=== PATIENT | male | born 1940 | race Caucasian/White ===

== ENCOUNTER 2018-01-02 10:15 | Inpatient (IN) | payer MEDICARE, SELFPAY ==
[2018-01-02] VITALS (10 sets, daily range): BP systolic 145–174; BP diastolic 60–85; PULSE 59–94; RESP 15–29; TEMP 36.8–36.9; O2SAT 94–98; BMI 29.0; BMI 27.9; BMI 28.0
--- NOTE | 2018-01-02 10:30 | EKG12_ITS ---
Test Reason : SYNCOPE Blood Pressure : / mmHG Vent. Rate : 079 BPM Atrial Rate : 079 BPM P-R Int : 172 ms QRS Dur : 098 ms QT Int : 372 ms P-R-T Axes : 047 -10 048 degrees QTc Int : 426 ms Normal sinus rhythm Normal ECG Confirmed by HENRY BECERRA, JAYDON ([id number]), metropolitan editor RORY ISAACS ([id number]) on 01/04/2018 3:59:02 PM Referred By: MEL Confirmed By:JAYDON FIGUEROA MD
--- NOTE | 2018-01-02 10:30 | CT_ITS ---
STUDY: CT BRAIN WITHOUT CONTRAST REASON FOR EXAM: Male, 77 years old. Syncope 2 days ago. CVA x3 with memory loss. RADIATION DOSAGE (If Supplied By Facility): CTDIvol = ( 44.99 ) mGy, DLP = ( 779.24 ) mGycm TECHNIQUE: Transaxial CT imaging of the brain was performed without administration of intravenous contrast material. Coronal and sagittal reconstructions were performed. Individualized dose optimization techniques were used for this CT. COMPARISON: 07/10/2013. FINDINGS: Normal soft tissue structures. Normal calvarium. Lacunar cystic infarcts in the periventricular white matter and in the anterior body of the left caudate nucleus are unchanged. Normal ventricles and cisterns. Phil cisterna magna in the posterior fossa is unchanged. Chronic white matter ischemic changes in both cerebral hemispheres are unchanged. Normal remaining basal ganglia. Normal thalami. Normal brainstem. Normal cerebellum. There is no intracranial hemorrhage. There are no findings of an acute ischemic infarction. Normal visualized paranasal sinuses. CT/Brain/Head without Contrast IMPRESSION: 1. No CT evidence of intracranial bleeding, acute infarct or acute intracranial abnormality. 2. 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 3. Chronic white matter ischemic changes in both cerebral hemispheres. 4. Phil cisterna magna. 5. No interval changes when compared to 07/10/2013. Electronically Signed: Jesus Del Cid MD at 11:59 EDT , Service support ,
--- NOTE | 2018-01-02 10:30 | RAD_ITS ---
STUDY: X-RAY CHEST REASON FOR EXAM: Male, 77 years old. Cough with recent syncopal episode. TECHNIQUE: AP upright portable view. COMPARISON: 03/10/2016. FINDINGS: Marked pulmonary hypoinflation. No suspicious confluent infiltrates and no suspicious pulmonary nodules. There is no demonstrated pleural abnormality. Cardiomegaly is most likely unchanged. Normal mediastinum and sanaz. Normal visualized pulmonary arteries. Normal visualized aortic arch and descending thoracic aorta. Normal visualized thoracic spine. Normal visualized ribs, clavicles, and shoulders. There is no demonstrated abnormality of the visualized soft tissue structures of the upper abdomen. RAD/Chest 1 View (Portable) IMPRESSION: 1. No suspicious acute cardiopulmonary pathology given the markedly limited inspiratory effort. 2. No significant interval changes when compared to 03/10/2016. Electronically Signed: Jesus Del Cid MD at 11:10 EDT , Service support ,
--- NOTE | 2018-01-02 10:46 | ED.DCSUM_ITS ---
- ER Visit Summary Date of Service: 01/02/18 Chief Complaint: Syncope History of Present Illness: The patient is a 77 M with history of multiple prior strokes, coronary vascular disease status post CABG, and hypertension presents after syncopal event. Patient states he has been in his normal state of health. He was outdoors walking with his on Tuesday. He does walk with a walker. While walking, the patient had a sudden syncopal event. He fell onto the grass. He did not strike his head. It only lasted a few seconds. There is no seizure activity. Shortly thereafter, the patient was back to his baseline. states that this happened about a month ago he was eating. He was at the table and then passed out for a few seconds. He has no history of syncope. He denies any chest pain. He denies any exertional dyspnea. He is not on anticoagulants. Physical Examination: Vital signs reviewed General: Well-nourished, well-developed Head: Normocephalic, atraumatic Eyes: Pupils equal and reactive, extraocular muscles intact Neck, supple, no lymphadenopathy Heart: Regular rate and rhythm Respiratory: No distress, clear bilaterally Abdomen: Soft, nontender, nondistended, no peritoneal signs Back: Nontender Extremities: Nontender, no edema, no cords Skin: Normal color no rash Neuro: Alert and oriented, no focal or lateralizing deficits Test Results: [] Emergency Department Course and Treatment: She presents to the emergency department with syncopal episode. It did happen 2 days ago. EKG was obtained. There was no evidence of dysrhythmia. His intervals were normal. Screening labs relatively unremarkable. The patient does have chronic kidney disease which is unchanged. His chest x-ray shows no volume overload. He does have cardiomegaly which is unchanged. Head CT shows evidence of old strokes, but no acute or normalities. Rest of his lab work is unremarkable. Orthostatics were obtained were negative. I do have concern as the patient has had 2 syncopal episodes within the past month without prodrome. I am suspicious that this may be cardiogenic in nature. He has never had history of syncope. I do for the patient has been of benefit from observation for further cardiac testing and diagnosis of his syncopal events. Treatment Plan: [] Disposition: Admission Impression: 1. Syncope This note was generated with [employer] software. It may contain incorrect words, spelling, and punctuation that were not noted in review of the chart prior to signing ED Disposition - Plan for ED Patient: Chief Complaint: Syncope Referrals: Stan Huerta MD [Primary Care Provider] -
[2018-01-02 11:01] LABS: Absolute Lymphocyte Count 1.74 X10^3/ul (0.83-4.51); Absolute Neutrophil Count 6.1 X10^3/uL (2.0-7.7); Basophil# 0.01 X10^3/uL; Basophil% 0.1 % (0-1); Eosinophil# 0.12 X10^3/uL; Eosinophils% 1.3 % (0-5); Hematocrit 41.1 % (40-54); Lymphocyte # 1.74 X10^3/ul (4.0); Lymphocyte % 19.5 % (19-41); Mean Corp Hgb Conc 34.1 g/gl (32-36); Mean Corpuscular Hgb 28.7 pg (27.0-32.0); Mean Corpuscular Volume 84.2 fL (80-94); Mean Platelet Vol. 9.5 fl (6.2-12.0); Monocyte# 0.98 X10^3/uL; Neutrophil # 6.06 X10^3/uL (2.7-7.7); Platelet Count 212 K/mm3 (150-450); RBC Distribution Width CV 13.6 % (11.6-14.6); RBC Distribution Width SD 41.4 fl (35.1-43.9); Red Blood Count 4.88 M/mm3 (4.6-6.2); White Blood Count 8.9 K/mm3 (4.4-11.0)
[2018-01-02 11:03] LABS: POSITIVE COUNT NO; POSITIVE DIFFERENTIAL NO; POSITIVE MORPHOLOGY NO
[2018-01-02 11:21] LABS: Anion Gap 7 (5-15); BUN 21 mg/dL (7-18); BUN/Creat Ratio 10.3 RATIO (10-20); Calcium,Total 9.4 mg/dL (8.5-10.1); Chloride 99 mmol/L (98-107); Creatinine, Serum 2.03 mg/dL (0.70-1.30); EST Glomerular Filtration Rate 34 mL/min (>60); Est Glom Filt Rate - Afr Amer 41 mL/min (>60); Estimated Creatinine Clearance 32.97 ml/min; Glucose 290 mg/dL (74-106); Potassium 3.9 mmol/L (3.5-5.1); Sodium Level 134 mmol/L (136-145)
--- NOTE | 2018-01-02 14:16 | ECHOD_ITS ---
Reason For Study: SYNCOPE Procedure This was a 2D Doppler, Color Flow transthoracic echocardiogram. Exam performed portable in patient room. Left Ventricle Normal LV size. Left ventricular systolic function is normal. The estimated ejection fraction is 65 %. Transmitral diastolic flow velocities suggest mild (stage 1) diastolic dysfunction (reversed pattern). No regional wall motion abnormalities noted. Right Ventricle Normal RV size. Normal systolic function. Atria Normal left atrium. Normal right atrium. Mitral Valve Normal mitral valve. Mild (1+) eccentric mitral valve insufficiency. Tricuspid Valve Normal tricuspid valve. Unable to estimate RV systolic pressure due to inadequate jet, pulmonary artery pressure probably normal. Aortic Valve Trisinus/trileaflet aortic valve. Pulmonic Valve Normal pulmonic valve. Great Vessels Normal aortic root. The pulmonary artery is normal size. Normal inferior vena cava. Pericardium/Pleural No pericardial effusion. MMode/2D Measurements & Calculations LVIDd: 4.2 cm IVSd: 1.1 cm Ao root diam: 3.2 cm LVIDs: 3.0 cm LVPWd: 1.0 cm RVDd: 3.5 cm FS: 27.8 % LAV(MOD-bp): 32.9 ml LVAd ap4: 32.7 cm2 SV(MOD-sp4): 55.2 ml LAV(MOD-bp) Indexed: 15.6 ml/m2 EDV(MOD-sp4): 102.1 ml LAV(MOD-sp2): 33.0 ml EDV(sp4-el): 107.0 ml LAV(MOD-sp4): 28.1 ml LVAs ap4: 19.8 cm2 ESV(MOD-sp4): 46.9 ml ESV(sp4-el): 48.7 ml EF(MOD-sp4): 54.1 % EF(sp4-el): 54.5 % SV(sp4-el): 58.3 ml LA A4 area: 12.6 cm2 RA A4 area: 10.7 cm2 Doppler Measurements & Calculations MV E max tomas: 62.2 cm/sec Lat Peak E' Tomas: 6.1 cm/sec Med Peak E' Tomas: 5.8 cm/sec MV A max tomas: 89.0 cm/sec E/E' lat: 10.2 E/E' med: 10.7 MV E/A: 0.70 Ao V2 max: 118.3 cm/sec LV V1 max: 99.8 cm/sec PA V2 max: 128.9 cm/sec Ao max P.6 mmHg LV V1 max P.0 mmHg Interpretation Summary Normal LV size. Left ventricular systolic function is normal. The estimated ejection fraction is 65 %. Transmitral diastolic flow velocities suggest mild (stage 1) diastolic dysfunction (reversed pattern). Ordering Physician: Chiquita Guillen Referring Physician: OSBALDO WILSON Performed By: Maricruz Lujan, ANTHONYCS, RVT
[2018-01-02 15:25] LABS: Magnesium 1.9 mg/dL (1.6-2.6); Thyroid Stim Hormone (TSH) 4.69 uIU/mL (0.358-3.74)
[2018-01-02 16:27] LABS: Bacteria 0 SEEN /hpf (None Seen); Mucous, Urine 0 SEEN /hpf (<or=2+); Squamous Epithelial Cells - UA 0 SEEN /hpf (0-5); White Blood Cells 0 SEEN /hpf (0-5)
[2018-01-02] MEDS: 0.9% Normal Saline 1,000 ML 75 ML IV (16:50)
[2018-01-02 17:36] LABS: Color, Urine Yellow (Yellow); Glucose, Dipstick 1000 mg/dl (Normal); Ketone-Dipstick Negative (Negative); Leukocyte Esterase-Dipstick Negative /ul (Negative); Nitrite-Dipstick Negative (Negative); Occult Blood-Urine Negative /ul (Negative); Protein-Dipstick 30 mg/dl (Negative); Urine Bilirubin Dipstick Negative (Negative); Urine Clarity Clear (Clear); Urine Urobilinogen Normal (Normal); Urine pH 6.5 (5.0 - 8.0)
[2018-01-02 18:46] LABS: Red Blood Cells-Urine 0-5 SEEN /hpf (0-5)
--- NOTE | 2018-01-02 20:43 | PCM.HP.STD ---
Problem List (1) Dehydration Status: Acute (2) Hyponatremia Status: Acute (3) History of coronary artery bypass graft Status: Chronic (4) Diabetes mellitus, type 2 Status: Chronic (5) Diastolic dysfunction Status: Chronic Comment: Stage I (6) Syncope Status: Acute (7) Depression Status: Chronic (8) Dementia Status: Chronic (9) Hyperlipidemia Status: Chronic (10) CAD (coronary artery disease) Status: Chronic (11) Hypertension Status: Chronic History of Present Illness Date of Admission: 01/02/18 Chief Complaint: passed out The patient is a 77 year old M with a past medical history of coronary artery disease, CABG, hypertension, hyperlipidemia and strokes who had a syncopal episode while walking outside with his on Tuesday. He was walking on the sidewalk but he feel into the grass and did not strike his head on the concrete. He tells me that he has had syncope in the past as well. His told Dr. Li that he had a syncopal episode about 1 month ago while eating. He has a history of coronary artery disease and has had bypass surgery in [place] in the past but cannot remember the name of the hospital or when he had the surgery. 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 After the syncopal episode he states that he was somewhat confused for a while and lay down for most of the day. He denies shortness of breath, chest pain, palpitations, lightheadedness. He denies any history of epilepsy. He did not bite his tongue and did not lose control of his bowels or bladder. Vital signs at presentation to the emergency room were temperature 98.3, pulse rate 79, blood pressure 171/83, respiratory rate of 29 and he was 94-98% saturated on room air. Tilt test was mildly positive with a decrease in blood pressure from 167/83 while lying down to 151/69 while standing. The pulse did not change. CBC was unremarkable. Sodium was low at 134 and the BUN was 21 with a creatinine of 2.03 which is within his baseline. He does take hydrochlorothiazide on a routine daily basis. Upon was less than 0.015. UA had no WBCs. There was no CT evidence of intracranial bleeding, acute infarct or acute intracranial abnormality. There are multiple old lacunar cystic infarcts in the periventricular white matter and in the anterior body of the left caudate nucleus. He was admitted to a monitored bed in the hospital with a diagnosis of syncope. Past Medical History Past Medical History (Chronic Problems): Chronic Problems History of coronary artery bypass graft (Chronic) Diabetes mellitus, type 2 (Chronic) Diastolic dysfunction (Chronic) Stage I Depression (Chronic) Dementia (Chronic) Hyperlipidemia (Chronic) CAD (coronary artery disease) (Chronic) Hypertension (Chronic) Allergies rosuvastatin calcium [From Crestor] Allergy (Verified 04/16/16 09:20) Hives atorvastatin calcium [From Lipitor] Adverse Reaction (Verified 04/16/16 09:20) Pain in joints morphine Adverse Reaction (Verified 04/16/16 09:20) Other LOCALIZED IRRITATION OF VEIN pioglitazone HCl [From Actos] Adverse Reaction (Verified 04/16/16 09:20) Pain in joints Home Medications: Ambulatory Orders Medication Instructions Recorded Nitroglycerin [Nitrostat] 0.4 mg SUBLINGUAL Q5M PRN 07/10/13 Multivit-Min/Iron Fum/Folic AC 1 each PO DAILY 03/04/16 [Srmkq-Isoxaht-Kbwalnsu Tablet] Vitamin E 400 unit PO DAILY 03/04/16 Amlodipine [Norvasc] 5 mg PO DAILY 01/02/18 Fluticasone 0.05% [Flonase Nasal 1 spray NASAL DAILY PRN 01/02/18 Mode] Glimepiride [Amaryl] 4 mg PO DAILY 01/02/18 [place]-3/Dha/Epa/Fish Oil [[place] 3 1 cap PO DAILY 01/02/18 500 Softgel] Simvastatin [Zocor] 40 mg PO QHS 01/02/18 Clonidine HCl [Catapres] 0.1 mg PO BID #60 tab 01/03/18 Surgical History: angioplasty - with stents, coronary bypass surgery, - - Surgery on the left leg secondary to traumatic fracture Psychiatric History: No pertinent psych hx Lives: Spouse/ Significant Other Smoking Status: Never smoker Tobacco Use: Non-smoker Alcohol: None Drugs: None - *Family History Maternal History Items: Cancer Paternal History Items: Heart Disease Review of Systems Constitutional: Denies: Chills, Fever, Weight Change Eyes: Denies: Blurred vision, Vision Change HEENT: Reports: Difficulty Hearing. Denies: Difficulty Swallowing, Head Aches Cardiovascular: Reports: Syncope. Denies: Chest Pain, Edema, Orthopnea, Palpitations, Paroxysmal Noc. Dyspnea Respiratory: Denies: Cough, Shortness of Breath, Sputum production Gastrointestinal: Denies: Abdominal Pain, Nausea, Vomiting Genitourinary: Denies: Dysuria, Hesitancy, Incontinence, Retention Musculoskeletal: Denies: Joint Pain, Joint Tenderness Skin: Denies: Rash, Wounds Neurological: Reports: Balance problems - Uses a FWW for ambulation, Confusion. Denies: Change in Speech, Seizures Psychiatric: Reports: Depression. Denies: Suicidal Ideations Endocrine: Denies: Change in Body Habitus Hematologic/ Lymphatic: Denies: Hx of blood clot VTE Information - Inpt Only VTE Present on Admission: No VTE Mechan Device Prophylaxis: None VTE Pharm Prophylaxis ordered?: Yes Patient Problems: Active and Suspected Problems Dehydration (Acute) Hyponatremia (Acute) Syncope (Acute) - Physical Exam General: Alert, Cooperative, No apparent distress, Well developed, Well nourished, - - He is having some difficulty with word finding and can not answer many questions about his history. HEENT: Atraumatic, PERRLA, EOMI, Normocephalic Oral: Dry Mucosa Neck: Supple, No JVD, Negative Carotid Bruits, No Nodes, No Nuchal Rigidity, Trachea Midline Lungs: Clear to auscultation, Normal air movement, No rhonchi, No wheeze, No rales Cardiovascular: Regular rate, Regular Rhythm, Normal S1, Normal S2, No murmurs, No rub noted, No Gallop Abdomen: Bowel Sounds Present, Soft, Non Tender, Non-Distended Extremities: No clubbing, No cyanosis, No edema, Peripheral Pulses Normal Skin: No rashes, No breakdown Musculoskeletal: No Muscle Wasting Neurological: Cranial nerves II-XII grossly intact, Neuro grossly intact, - - No focal neurologic deficits. Does have trouble with finding words and answers I do not know to many questions Psych/Mental Status: Appropriate Vital Signs Temp Pulse Resp BP Pulse Ox 98.4 F 68 15 153/71 H 98 01/02/18 14:55 01/02/18 18:46 01/02/18 14:55 01/02/18 15:17 01/02/18 14:55 Oxygen Delivery Method Room Air Weight: 200 lb 9.93 oz Body Mass Index (BMI) 27.9 Orthostatic Vital Signs Start: 01/02/18 15:17 Freq: q24h Status: Active Protocol: Activity Type Activity Date Activity User E-Sign Co-Sign Detail Recorded Client Recorded Date Recorded By Document 01/02/18 15:17 DS [id number] 01/02/18 15:23 DS 01/02/18 15:17 Orthostatic Vitals Standing -Blood Pressure (90/60-120/80 mm Hg) 159/68 H -Extremity Use Right Arm -Pulse Rate (60-100 beats/min) 70 Sitting -Blood Pressure (90/60-120/80 mm Hg) 174/72 H -Extremity Use Right Arm -Pulse Rate (60-100 beats/min) 63 Lying -Blood Pressure (90/60-120/80 mm Hg) 153/71 H -Extremity Use Right Arm -Pulse Rate (60-100 beats/min) 59 L Intake and Output for Last 24 Hours 12/31/17 01/01/18 01/02/18 23:59 23:59 23:59 Intake Total 637 / 637 Balance 637 / 637 Laboratory Tests Past 24 Hrs 01/02/18 01/02/18 01/02/18 14:45 16:00 17:15 Magnesium 1.9 Troponin I < 0.015 < 0.015 TSH 4.69 H Urine Color Yellow Urine Clarity Clear Urine pH 6.5 Ur Specific [place] 1.010 Urine Protein 30 H Urine Glucose (UA) 1000 H Urine Ketones Negative Urine Occult Blood Negative Urine Nitrite Negative Urine Bilirubin Negative Urine Urobilinogen Normal Ur Leukocyte Esterase Negative Urine RBC 0-5 SEEN Urine WBC 0 SEEN Ur Squamous Epith Cells 0 SEEN Urine Bacteria 0 SEEN Urine Mucus 0 SEEN Assessment/Plan All Active Problems Dehydration (Acute) Hyponatremia (Acute) Syncope (Acute) Impressions 1. Syncope-possibly secondary to dehydration with orthostatic hypotension but cannot rule out cardiac syncope 2. Dehydration 3. Mild orthostatic hypotension 4. Chronic renal failure-stage III 5. Coronary artery disease with history of CABG 6. History of CVA ?2 in the past 7. Memory difficulties-never officially diagnosed with dementia by a neurologist 8. Hyponatremia-he is chronically on hydrochlorothiazide for hypertension 9. Diabetes mellitus type 2 Admit to PCU Hydrate Recheck orthostatic blood pressures in the a.m. Echocardiogram Serial cardiac enzymes and if these are negative nuclear stress test, pharmacologic, in the a.m. We meet with the tomorrow to clarify history with her Code Visit Inpatient E&M: 43381 Init Hosp L3
[2018-01-03] VITALS (9 sets, daily range): BP systolic 143–180; BP diastolic 69–85; PULSE 61–86; RESP 18–24; TEMP 36.4–36.9; O2SAT 95–97
[2018-01-03 00:11] LABS: Bedside Glucose 218 mg/dL (70-110)
--- NOTE | 2018-01-03 05:55 | EKG12_ITS ---
Test Reason : AM Blood Pressure : / mmHG Vent. Rate : 066 BPM Atrial Rate : 066 BPM P-R Int : 180 ms QRS Dur : 096 ms QT Int : 402 ms P-R-T Axes : -01 057 -18 degrees QTc Int : 421 ms Normal sinus rhythm Normal ECG When compared with ECG of 08-MAR-2016 07:31, Nonspecific T wave abnormality, worse in Inferior leads Nonspecific T wave abnormality now evident in Lateral leads Confirmed by HENRY BECERRA, JAYDON ([id number]), editorial specialist RORY ISAACS ([id number]) on 01/05/2018 10:14:17 AM Referred By: CARLOS Confirmed By:JAYDON FIGUEROA MD
[2018-01-03 06:05] LABS: International Normalized Ratio 1.2; Prothrombin Time (Protime)PT. 14.9 SECONDS (11.7-14.9)
[2018-01-03 06:06] LABS: Partial Thromboplast Time 32.3 Seconds (24.1-36.2)
[2018-01-03] MEDS: amLODIPine 5 MG Tablet PO (06:11)
[2018-01-03] MEDS: cloNIDine HCl 0.1 MG Tablet PO (06:11)
[2018-01-03 06:12] LABS: Hemoglobin 13.7 g/dl (13.0-16.5); Mean Corp Hgb Conc 35.1 g/gl (32-36); Mean Corpuscular Hgb 29.3 pg (27.0-32.0); Mean Corpuscular Volume 83.3 fL (80-94); Mean Platelet Vol. 9.6 fl (6.2-12.0); Platelet Count 224 K/mm3 (150-450); RBC Distribution Width CV 13.4 % (11.6-14.6); RBC Distribution Width SD 40.1 fl (35.1-43.9); Red Blood Count 4.68 M/mm3 (4.6-6.2); White Blood Count 8.3 K/mm3 (4.4-11.0)
[2018-01-03 06:15] LABS: Scan Indicated on CBC? Y/N NO
[2018-01-03 06:25] LABS: ALB/GLOB Ratio 0.7 RATIO (0.9-2.4); AST(SGOT) 30 U/L (15-37); Alanine Aminotransfer ALT/SGPT 40 U/L (16-61); Albumin, Serum 2.9 g/dL (3.2-5.0); Alkaline Phosphatase 62 U/L (45-117); Anion Gap 8 (5-15); BUN 17 mg/dL (7-18); BUN/Creat Ratio 10.7 RATIO (10-20); Calcium,Total 8.8 mg/dL (8.5-10.1); Chloride 104 mmol/L (98-107); Cholesterol 149 mg/dL (200); Creatinine, Serum 1.59 mg/dL (0.70-1.30); EST Glomerular Filtration Rate 45 mL/min (>60); Est Glom Filt Rate - Afr Amer 55 mL/min (>60); Globulin 3.9 g/dL (2.2-4.2); Glucose 148 mg/dL (74-106); High Density Lipoprotein 33 mg/dL; Magnesium 1.8 mg/dL (1.6-2.6); Phosphorus 3.2 mg/dL (2.5-4.9); Potassium 3.4 mmol/L (3.5-5.1); Protein, Total 6.8 g/dL (6.4-8.2); Sodium Level 140 mmol/L (136-145); T4 Free Direct 1.27 ng/dL (0.76-1.46); Triglycerides 181 mg/dL; Very Low Density Lipoprotein 36 mg/dL (5-40)
[2018-01-03 06:55] LABS: Bedside Glucose 151 mg/dL (70-110)
[2018-01-03] MEDS: Glimepiride 4 MG Tablet PO (09:07)
[2018-01-03] MEDS: Multivitamins,Ther W-Minerals Tablet 1 TABLET PO (09:07)
[2018-01-03] MEDS: Vitamin E 400 UNITS Capsule PO (09:07)
[2018-01-03] MEDS: Enoxaparin 40 MG/0.4 ML Syringe SC (09:14)
[2018-01-03] MEDS: 0.9% Normal Saline 1,000 ML 75 ML IV (09:19)
--- NOTE | 2018-01-03 10:48 | STRESSREP_ITS ---
Stress Test Report Date: 01/03/2018 Procedure: Pharmacologic stress nuclear imaging study Indications: Syncope; CAD; PCI; CABG Consent: Per the patient Procedure: The patient underwent pharmacologic (Regadenoson) evaluation with a peak heart rate of 81 beats per minute (56 predicted maximal heart rate) and a peak blood pressure of 160/80 mmHg. The baseline ECG demonstrated normal sinus rhythm. The peak pharmacologic ECG demonstrated no obvious ECG changes. There were no cardiac dysrhythmias pretest, during pharmacologic infusion, or recovery. There was no complaint of chest discomfort during pharmacologic infusion or recovery. The examination was discontinued secondary to completion of protocol. Impression: 1. Pharmacologic (Regadenoson) evaluation 2. Peak pharmacologic ECG with no obvious ECG changes. 3. There were no cardiac dysrhythmias pretest, during pharmacologic infusion, or recovery 4. Nuclear images pending Myocardial perfusion imaging study: Technique: The patient was injected with 11.9 millicuries of technetium 99m Cardiolite and subsequently rest SPECT Cardiolite nuclear imaging was obtained in the horizontal long, vertical long, and short axis views. The patient underwent pharmacologic (Regadenoson) evaluation with a peak heart rate of 81 beats per minute (56 % percent predicted maximal heart rate) and a peak blood pressure of 160/80 mmHg. The patient was injected with 34.2 millicuries of technetium 99m Cardiolite and subsequently stress SPECT Cardiolite nuclear imaging was obtained in the horizontal long, vertical long, and short axis views. A gated Cardiolite study at peak stress was obtained. Interpretation: Rest and stress SPECT Cardiolite nuclear imaging status post realignment, normalization, and attenuation correction demonstrate relative uniform tracer uptake and myocardial perfusion appearing within normal limits. There is end systolic thickening and brightening. The gated Cardiolite study demonstrates myocardial thickening and inward wall motion. The reported LVEF is 60 %. Impression: 1. Rest and stress SPECT Cardiolite nuclear imaging demonstrate relative uniform tracer uptake and myocardial perfusion appearing within normal limits. 2. The gated Cardiolite study reports an LVEF of 60 %. This note was generated with [employer] software. It may contain incorrect words, spelling, and punctuation that were not noted in checking the note before signing.
--- NOTE | 2018-01-03 11:31 | CASEMGMT ---
See RN CM Assessment Link. DC Plan: Home Intro role of CM to patient and his . Anticipate pt will be able to return home with . -Awaiting PT/OT evaluations. -CM to assist with any dc needs that arise. Karen CROOKN RN ACM
[2018-01-03 11:40] LABS: Bedside Glucose 263 mg/dL (70-110)
--- NOTE | 2018-01-03 15:49 | PCM.DC ---
You will use the following diet at home:: Calorie/Carbohydrate Controlled (specify 1200, 1400, etc), Cardiac Your food should be the consistency of: Regular Your liquids should be the consistency of: Regular/Thin Discharge Activity: Return to Normal Activity Call your doctor if you observe: Fever of 101 or Higher, Inability to urinate, Shortness of breath, Dizziness, Fainting spells, Increased palpitations (irregular heartbeat) Instructions: Treating Syncope: Prevention, Understanding Reversible Dementias, Understanding Dementia Additional Instructions: 1. The heart monitor in the hospial did not show any problem with the rhythm of the heart BUT, problems with the rhythm can be sporadic and we may not have caught it while you were in the hospital. You are going to go home with a heart monitor that you will wear for 230 days and then you will follow up with Dr. Cheema who is a mold maker plastic molds. 2. You are having some problems with memory loss. This may be related to your previous strokes but, It could be due to something else that is treatable. I think you should follow up with a neurologist and there are 2 here in the hospital. We are referring you to Dr. Wilkins to be evaluated for memory loss. 3. The stress test was negative for any evidence of lack of blood flow to the arteies in the heart. Pending Tests on Discharge: none Allergies/Adverse Reactions: Allergies rosuvastatin calcium [From Crestor] Allergy (Verified 04/16/16 09:20) Hives atorvastatin calcium [From Lipitor] Adverse Reaction (Verified 04/16/16 09:20) Pain in joints morphine Adverse Reaction (Verified 04/16/16 09:20) Other LOCALIZED IRRITATION OF VEIN pioglitazone HCl [From Actos] Adverse Reaction (Verified 04/16/16 09:20) Pain in joints Medications to take at Discharge Nitroglycerin [Nitrostat] 0.4 mg SUBLINGUAL Q5M PRN 07/10/13 Multivit-Min/Iron Fum/Folic AC [Qqimn-Smlhgth-Ymybskqj Tablet] 1 each PO DAILY 03/04/16 Vitamin E 400 unit PO DAILY 03/04/16 Amlodipine [Norvasc] 5 mg PO DAILY 01/02/18 Fluticasone 0.05% [Flonase Nasal [place]] 1 spray NASAL DAILY PRN 01/02/18 Glimepiride [Amaryl] 4 mg PO DAILY 01/02/18 [place]-3/Dha/Epa/Fish Oil [[place] 3 500 Softgel] 1 cap PO DAILY 01/02/18 Simvastatin [Zocor] 40 mg PO QHS 01/02/18 Clonidine HCl [Catapres] 0.1 mg PO BID #60 tab 01/03/18 The following prescriptions were given: Clonidine HCl [Catapres] 0.1 mg PO BID #60 tab Orders to be completed after discharge: 30-Day Event Recorder [[facility]] Location: None Selected Primary Care Physician: Stan Huerta MD [Primary Care Provider] - Please follow up with your Primary Care Physician in: 7-10 days Please Follow Up With: Brian Macias MD When: next available appt for evaluation for memory loss Please Follow Up With: Marshal Cheema MD When: 5-6 weeks Proposed Discharge Date: 01/03/18
--- NOTE | 2018-01-03 16:02 | DCINST_ITS ---
You will use the following diet at home:: Calorie/Carbohydrate Controlled ( specify 1200, 1400, etc), Cardiac Your food should be the consistency of: Regular Your liquids should be the consistency of: Regular/Thin Discharge Activity: Return to Normal Activity Call your doctor if you observe: Fever of 101 or Higher, Inability to urinate, Shortness of breath, Dizziness, Fainting spells, Increased palpitations ( irregular heartbeat) Instructions: Treating Syncope: Prevention, Understanding Reversible Dementias , Understanding Dementia Additional Instructions: 1. The heart monitor in the hospial did not show any problem with the rhythm of the heart BUT, problems with the rhythm can be sporadic and we may not have caught it while you were in the hospital. You are going to go home with a heart monitor that you will wear for 230 days and then you will follow up with Dr. Cheema who is a cnc operator. 2. You are having some problems with memory loss. This may be related to your previous strokes but, It could be due to something else that is treatable. I think you should follow up with a neurologist and there are 2 here in the hospital. We are referring you to Dr. Wilkins to be evaluated for memory loss. 3. The stress test was negative for any evidence of lack of blood flow to the arteies in the heart. Pending Tests on Discharge: none Allergies/Adverse Reactions: Allergies rosuvastatin calcium [From Crestor] Allergy (Verified 04/16/16 09:20) Hives atorvastatin calcium [From Lipitor] Adverse Reaction (Verified 04/16/16 09:20) Pain in joints morphine Adverse Reaction (Verified 04/16/16 09:20) Other LOCALIZED IRRITATION OF VEIN pioglitazone HCl [From Actos] Adverse Reaction (Verified 04/16/16 09:20) Pain in joints Medications to take at Discharge Nitroglycerin [Nitrostat] 0.4 mg SUBLINGUAL Q5M PRN 07/10/13 Multivit-Min/Iron Fum/Folic AC [Rjygv-Bpiddav-Eiaoqang Tablet] 1 each PO DAILY 03/04/16 Vitamin E 400 unit PO DAILY 03/04/16 Amlodipine [Norvasc] 5 mg PO DAILY 01/02/18 Fluticasone 0.05% [Flonase Nasal [place]] 1 spray NASAL DAILY PRN 01/02/18 Glimepiride [Amaryl] 4 mg PO DAILY 01/02/18 [place]-3/Dha/Epa/Fish Oil [[place] 3 500 Softgel] 1 cap PO DAILY 01/02/18 Simvastatin [Zocor] 40 mg PO QHS 01/02/18 Clonidine HCl [Catapres] 0.1 mg PO BID #60 tab 01/03/18 The following prescriptions were given: Clonidine HCl [Catapres] 0.1 mg PO BID #60 tab Orders to be completed after discharge: 30-Day Event Recorder [[facility]] Location: None Selected Primary Care Physician: Stan Huerta MD [Primary Care Provider] - Please follow up with your Primary Care Physician in: 7-10 days Please Follow Up With: Brian Macias MD When: next available appt for evaluation for memory loss Please Follow Up With: Marshal Cheema MD When: 5-6 weeks Proposed Discharge Date: 01/03/18
--- NOTE | 2018-01-03 16:04 | PCM.DC.SUM ---
Discharge Date and Diagnosis - Problem List Patient Problems: Active and Suspected Problems Dehydration (Acute) Hyponatremia (Acute) History of coronary artery bypass graft (Acute) Syncope (Acute) Date of Admission: 01/02/18 Date of Discharge: 01/03/18 - Primary Discharge Diagnosis Active and Suspected Problems Syncope (Acute) Dehydration (Acute) - on a diuretic Hyponatremia (Acute) - Secondary Discharge Diagnosis Chronic Problems Diabetes mellitus, type 2 (Chronic) Diastolic dysfunction (Chronic) -stage I Depression (Chronic) Dementia (Chronic) - has never had a work-up by the manual control auger press operator Hyperlipidemia (Chronic) CAD (coronary artery disease) (Chronic) Hypertension (Chronic) History of coronary artery bypass graft (Acute) Hospital Course and Treatment Imaging Results: Clinical Impression(s) from Imaging Studies Brain CT 01/02/18 10:30 IMPRESSION: 1. No CT evidence of intracranial bleeding, acute infarct or acute intracranial abnormality. 2. 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 3. Chronic white matter ischemic changes in both cerebral hemispheres. 4. Phil cisterna magna. 5. No interval changes when compared to 07/10/2013. Electronically Signed: Jesus Del Cid MD at 11:59 EDT , Service support , Chest X-Ray 01/02/18 10:30 IMPRESSION: 1. No suspicious acute cardiopulmonary pathology given the markedly limited inspiratory effort. 2. No significant interval changes when compared to 03/10/2016. Electronically Signed: Jesus Del Cid MD at 11:10 EDT , Service support , none Operations: None Procedures: 2-D Echocardiogram, Stress test Summary of Care Provided: The patient is a 77 year old M with a past medical history of coronary artery disease, CABG, hypertension, hyperlipidemia and strokes who had a syncopal episode while walking outside with his on Tuesday. He was walking on the sidewalk but he fell into the grass and did not strike his head on the concrete. He told me that he has had syncope in the past as well. His told Dr. Li that he had a syncopal episode about 1 month ago while eating. He has a history of coronary artery disease and had bypass surgery in [place] in the past but could not remember the name of the hospital or when he had the surgery. His later told me it was in 2009. He has not seen a manual control auger press operator since the CABG and has not had a stress. After the syncopal episode he stated that he was somewhat confused for a while and laid down for most of the day. He denied shortness of breath, chest pain, palpitations, lightheadedness. He denied any history of epilepsy. He did not bite his tongue and did not lose control of his bowels or bladder. His stated he was back to baseline within minutes. Vital signs at presentation to the emergency room were temperature 98.3, pulse rate 79, blood pressure 171/83, respiratory rate 29 and he was 94-98% saturated on room air. Tilt test was mildly positive with a decrease in blood pressure from 167/83 while lying down to 151/69 while standing. The pulse did not change. CBC was unremarkable. Sodium was low at 134 and the BUN was 21 with a creatinine of 2.03 which is within his baseline. He does take hydrochlorothiazide on a routine daily basis. Troponin was less than 0.015. UA had no WBCs. There was no CT evidence of intracranial bleeding, acute infarct or acute intracranial abnormality. There were multiple old lacunar cystic infarcts in the periventricular white matter and in the anterior body of the left caudate nucleus. He was admitted to a monitored bed in the hospital with a diagnosis of syncope. Telemetry showed NSR with no ectopy. An ECHO showed a EF of 60% with stage 1 diastolic dysfunction. Serial cardiac enzymes were negative. A pharmacologic nuclear stress test was done on 01/03/2018 and was negative for ischemia with an ejection fraction of 60%. TSH was mildly increased at 4.69 but the free T4 was within normal limits. With hydration the orthostasis resolved and the BUN came down to 17 with a creatinine of 1.59, down from 2.03 at admission. Lungs were clear to auscultation on the date of discharge and he had no peripheral edema. The heart had a regular rate and rhythm no gallop. I discussed the case with cardiology and a 30 day event monitor was ordered. He will follow up with Dr. Cheema in the office in 5-6 weeks. His related that he has problems with his memory. When I interviewed him he had trouble with word finding and was unable to tell me when he had a cardiac catheterization, if he had a manual control auger press operator and what medications he was taking. He was referred to neurology to be evaluated for treatable causes of dementia.....the patient and his were agreeable to the plan at [facility]. Discharge Activity: Return to Normal Activity Call your doctor if you observe: Fever of 101 or Higher, Inability to urinate, Shortness of breath, Dizziness, Fainting spells, Increased palpitations (irregular heartbeat) Home Medications: Medications to take at Discharge Nitroglycerin [Nitrostat] 0.4 mg SUBLINGUAL Q5M PRN 07/10/13 Multivit-Min/Iron Fum/Folic AC [Kcmzz-Wvipptr-Obvivdny Tablet] 1 each PO DAILY 03/04/16 Vitamin E 400 unit PO DAILY 03/04/16 Amlodipine [Norvasc] 5 mg PO DAILY 01/02/18 Fluticasone 0.05% [Flonase Nasal [place]] 1 spray NASAL DAILY PRN 01/02/18 Glimepiride [Amaryl] 4 mg PO DAILY 01/02/18 [place]-3/Dha/Epa/Fish Oil [[place] 3 500 Softgel] 1 cap PO DAILY 01/02/18 Simvastatin [Zocor] 40 mg PO QHS 01/02/18 Clonidine HCl [Catapres] 0.1 mg PO BID #60 tab 01/03/18 Following Prescrptions Were Given to Patient: Clonidine HCl [Catapres] 0.1 mg PO BID #60 tab Other Amb Orders: 30-Day Event Recorder [[facility]] Location: None Selected Primary Care Physician: Stan Huerta MD [Primary Care Provider] - Please follow up with your Primary Care Physician in: 7-10 days Please Follow Up With: Brian Macias MD When: next available appt for evaluation for memory loss Please Follow Up With: Marshal Cheema MD When: 5-6 weeks Patient Instructions: Treating Syncope: Prevention, Understanding Reversible Dementias, Understanding Dementia Disposition: Home Minutes spent on discharge:: 35 Patient Condition:: Stable Medical Necessity - Tobacco Use Smoking Status: Never smoker Tobacco Use: Non-smoker Meaningful Use Info Meaningful Use Diagnoses (Choose all that apply): None applicable Code Visit Inpatient E&M: 26511 Disch Hosp
--- NOTE | 2018-01-03 16:19 | DS.PCM_ITS ---
Discharge Date and Diagnosis - Problem List Patient Problems: Active and Suspected Problems Dehydration (Acute) Hyponatremia (Acute) History of coronary artery bypass graft (Acute) Syncope (Acute) Date of Admission: 01/02/18 Date of Discharge: 01/03/18 - Primary Discharge Diagnosis Active and Suspected Problems Syncope (Acute) Dehydration (Acute) - on a diuretic Hyponatremia (Acute) - Secondary Discharge Diagnosis Chronic Problems Diabetes mellitus, type 2 (Chronic) Diastolic dysfunction (Chronic) -stage I Depression (Chronic) Dementia (Chronic) - has never had a work-up by the ocular pathologist Hyperlipidemia (Chronic) CAD (coronary artery disease) (Chronic) Hypertension (Chronic) History of coronary artery bypass graft (Acute) Hospital Course and Treatment Imaging Results: Clinical Impression(s) from Imaging Studies Brain CT 01/02/18 10:30 IMPRESSION: 1. No CT evidence of intracranial bleeding, acute infarct or acute intracranial abnormality. 2. 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 3. Chronic white matter ischemic changes in both cerebral hemispheres. 4. Phil cisterna magna. 5. No interval changes when compared to 07/10/2013. Electronically Signed: Jesus Del Cid MD at 11:59 EDT , Service support , Chest X-Ray 01/02/18 10:30 IMPRESSION: 1. No suspicious acute cardiopulmonary pathology given the markedly limited inspiratory effort. 2. No significant interval changes when compared to 03/10/2016. Electronically Signed: Jesus Del Cid MD at 11:10 EDT , Service support , none Operations: None Procedures: 2-D Echocardiogram, Stress test Summary of Care Provided: The patient is a 77 year old M with a past medical history of coronary artery disease, CABG, hypertension, hyperlipidemia and strokes who had a syncopal episode while walking outside with his on Tuesday. He was walking on the sidewalk but he fell into the grass and did not strike his head on the concrete. He told me that he has had syncope in the past as well. His told Dr. Li that he had a syncopal episode about 1 month ago while eating. He has a history of coronary artery disease and had bypass surgery in [place] in the past but could not remember the name of the hospital or when he had the surgery. His later told me it was in 2009. He has not seen a ocular pathologist since the CABG and has not had a stress. After the syncopal episode he stated that he was somewhat confused for a while and laid down for most of the day. He denied shortness of breath, chest pain, palpitations, lightheadedness. He denied any history of epilepsy. He did not bite his tongue and did not lose control of his bowels or bladder. His stated he was back to baseline within minutes. Vital signs at presentation to the emergency room were temperature 98.3, pulse rate 79, blood pressure 171/83, respiratory rate 29 and he was 94-98% saturated on room air. Tilt test was mildly positive with a decrease in blood pressure from 167/83 while lying down to 151/69 while standing. The pulse did not change. CBC was unremarkable. Sodium was low at 134 and the BUN was 21 with a creatinine of 2.03 which is within his baseline. He does take hydrochlorothiazide on a routine daily basis. Troponin was less than 0.015. UA had no WBCs. There was no CT evidence of intracranial bleeding, acute infarct or acute intracranial abnormality. There were multiple old lacunar cystic infarcts in the periventricular white matter and in the anterior body of the left caudate nucleus. He was admitted to a monitored bed in the hospital with a diagnosis of syncope. Telemetry showed NSR with no ectopy. An ECHO showed a EF of 60% with stage 1 diastolic dysfunction. Serial cardiac enzymes were negative. A pharmacologic nuclear stress test was done on 01/03/2018 and was negative for ischemia with an ejection fraction of 60%. TSH was mildly increased at 4.69 but the free T4 was within normal limits. With hydration the orthostasis resolved and the BUN came down to 17 with a creatinine of 1.59, down from 2.03 at admission. Lungs were clear to auscultation on the date of discharge and he had no peripheral edema. The heart had a regular rate and rhythm no gallop. I discussed the case with cardiology and a 30 day event monitor was ordered. He will follow up with Dr. Cheema in the office in 5-6 weeks. His related that he has problems with his memory. When I interviewed him he had trouble with word finding and was unable to tell me when he had a cardiac catheterization, if he had a ocular pathologist and what medications he was taking. He was referred to neurology to be evaluated for treatable causes of dementia.....the patient and his were agreeable to the plan at [facility]. Discharge Activity: Return to Normal Activity Call your doctor if you observe: Fever of 101 or Higher, Inability to urinate, Shortness of breath, Dizziness, Fainting spells, Increased palpitations ( irregular heartbeat) Home Medications: Medications to take at Discharge Nitroglycerin [Nitrostat] 0.4 mg SUBLINGUAL Q5M PRN 07/10/13 Multivit-Min/Iron Fum/Folic AC [Midvp-Ntzbuwn-Muxbsrzn Tablet] 1 each PO DAILY 03/04/16 Vitamin E 400 unit PO DAILY 03/04/16 Amlodipine [Norvasc] 5 mg PO DAILY 01/02/18 Fluticasone 0.05% [Flonase Nasal [place]] 1 spray NASAL DAILY PRN 01/02/18 Glimepiride [Amaryl] 4 mg PO DAILY 01/02/18 [place]-3/Dha/Epa/Fish Oil [[place] 3 500 Softgel] 1 cap PO DAILY 01/02/18 Simvastatin [Zocor] 40 mg PO QHS 01/02/18 Clonidine HCl [Catapres] 0.1 mg PO BID #60 tab 01/03/18 Following Prescrptions Were Given to Patient: Clonidine HCl [Catapres] 0.1 mg PO BID #60 tab Other Amb Orders: 30-Day Event Recorder [[facility]] Location: None Selected Primary Care Physician: Stan Huerta MD [Primary Care Provider] - Please follow up with your Primary Care Physician in: 7-10 days Please Follow Up With: Brian Macias MD When: next available appt for evaluation for memory loss Please Follow Up With: Marshal Cheema MD When: 5-6 weeks Patient Instructions: Treating Syncope: Prevention, Understanding Reversible Dementias, Understanding Dementia Disposition: Home Minutes spent on discharge:: 35 Patient Condition:: Stable Medical Necessity - Tobacco Use Smoking Status: Never smoker Tobacco Use: Non-smoker Meaningful Use Info Meaningful Use Diagnoses (Choose all that apply): None applicable Code Visit Inpatient E&M: 48922 Disch Hosp
--- NOTE | 2018-01-06 15:34 | CASEMGMT ---
RN CM Discharge F/U Phone Call LACE: 9 Strata: 3 Discharge date: 01/03/18 Call date: 01/06/18 Attempted to reach pt without success at this time. This RN CM was unable to leave voicemail at this time. SStaten KEANU SHAH
== END 2018-01-03 17:19 | disposition home or self-care (01) | DRG 641 ==
LOC: ED 10:38 → PCU 13:04
PROVIDERS: Admitting Provider Internal Medicine; Emergency Provider Emergency Medicine; Family Provider Family Medicine; PCP Family Medicine; Visit Provider Internal Medicine
DX: E86.0 Dehydration (principal); E87.1 Hypo-osmolality and hyponatremia; I25.10 Atherosclerotic heart disease of native coronary artery without angina pectoris; I95.1 Orthostatic hypotension; F32.9 Major depressive disorder, single episode, unspecified; E78.5 Hyperlipidemia, unspecified; I12.9 Hypertensive chronic kidney disease with stage 1 through stage 4 chronic kidney disease, or unspecified chronic kidney disease; E11.22 Type 2 diabetes mellitus with diabetic chronic kidney disease; N18.3 Chronic kidney disease, stage 3 (moderate); Z95.1 Presence of aortocoronary bypass graft; Z86.73 Personal history of transient ischemic attack (TIA), and cerebral infarction without residual deficits; Z79.84 Long term (current) use of oral hypoglycemic drugs
CPT/HCPCS: 36415; 70450; 71045; 78452; 80048; 80053; 80061; 81001; 82962; 83735; 84100; 84439; 84443; 84484; 85025; 85027; 85610; 85730; 93005; 93017; 93306; 97162; 97165; 99285; A9500; J7030; J7040; A4216; J2785

== ENCOUNTER 2018-03-06 08:45 | Inpatient (IN) | payer MEDICARE, SELFPAY ==
[2018-03-06 08:47] VITALS: BP 148/85; PULSE 77; RESP 17; TEMP 36.8; O2SAT 97; BMI 31.0
--- NOTE | 2018-03-06 09:09 | ED.VISSUMM ---
- ER Visit Summary Date of Service: 03/06/18 Chief Complaint: Elevated creatinine History of Present Illness: The patient is a [address] Huerta. He is a very poor informant. Family member reports that he has had decreased p.o. intake for approximately [address] Yosef Castellanos's nurse practitioner in the office on Tuesday and had blood work obtained. His creatinine is gone from 1.8-5.3. Family member reports that he has weakness in his legs bilaterally. They state that he fell 2 weeks ago. He was helped to the floor. Did not hit his head. Did not have a loss of consciousness. Review of systems: General: No fever, chills, cold sweats. Cardiovascular: No chest pain, palpitations. Respiratory: No cough, shortness of breath, dyspnea on exertion. Gastrointestinal: No abdominal pain, nausea, vomiting, diarrhea, or melena. Genitourinary: No dysuria, frequency, hematuria. Skin: No rash. Neuro: No headache, numbness, weakness. Physical Examination: Vitals: Stable. Afebrile. General: Well-nourished and well-developed. Head: Normocephalic atraumatic. Neck: Supple, no lymphadenopathy. No JVD. Nontender. Cardiovascular: Regular rate and rhythm. 2 out of 6 systolic murmur. Respiratory: No respiratory distress. Clear to auscultation bilaterally. Abdominal: Soft, nontender, nondistended, normal bowel sounds. No guarding, rebound, or peritoneal signs. Back: Nontender. Extremities: Nontender, trace pedal edema bilaterally. Skin: Normal color, no rash. Neurologic: Alert and oriented ?3. Cranial nerves II through XII are intact. Normal strength and sensation. Psych: Normal affect. Test Results: CBC is marked for an H&H 11.9 and 34.9, platelets of 71, lymphocytes of 17. Chem-7 is more for glucose 213, BUN of 114, creatinine 5.6. Creatinine is range between 1.5 92.03 in 2018 otherwise. INR is 1.2. UA is negative. CT brain shows chronic changes. Emergency Department Course and Treatment: Patient had an IV placed. He was given 500 cc bolus of normal saline. He is resting comfortably. Treatment Plan: Patient will be discussed with the hospitalist and admitted for further evaluation and treatment. He is unable to even stand at the bedside. Disposition: Admitted in serious condition. Impression: 1. Acute renal failure. 2. Generalized weakness. This note was generated with [employer] dictation software. It may contain incorrect words, spelling, and punctuation that were not noted in review of the chart prior to signing ED Disposition - Plan for ED Patient: Chief Complaint: Abn Labs Referrals: Stan Huerta MD [Primary Care Provider] -
[2018-03-06 09:25] LABS: Absolute Lymphocyte Count 1.74 X10^3/ul (0.83-4.51); Absolute Neutrophil Count 7.1 X10^3/uL (2.0-7.7); Basophil# 0.02 X10^3/uL; Basophil% 0.2 % (0-1); Hematocrit 34.9 % (40-54); Hemoglobin 11.9 g/dl (13.0-16.5); Lymphocyte # 1.74 X10^3/ul (4.0); Lymphocyte % 17.1 % (19-41); Mean Corp Hgb Conc 34.1 g/gl (32-36); Mean Corpuscular Hgb 28.6 pg (27.0-32.0); Mean Corpuscular Volume 83.9 fL (80-94); Monocyte# 1.03 X10^3/uL; Monocyte% 10.1 % (0-10); Neutrophil # 7.14 X10^3/uL (2.7-7.7); POSITIVE COUNT NO; POSITIVE DIFFERENTIAL NO; POSITIVE MORPHOLOGY NO; Platelet Count 71 K/mm3 (150-450); RBC Distribution Width CV 14.6 % (11.6-14.6); RBC Distribution Width SD 44.6 fl (35.1-43.9); Red Blood Count 4.16 M/mm3 (4.6-6.2); White Blood Count 10.2 K/mm3 (4.4-11.0)
[2018-03-06 09:37] LABS: International Normalized Ratio 1.2
[2018-03-06 09:38] LABS: BUN 114 mg/dL (7-18); EST Glomerular Filtration Rate 11 mL/min (>60); Estimated Creatinine Clearance 11.22 ml/min; Glucose 213 mg/dL (74-106)
[2018-03-06 09:39] LABS: Anion Gap 13 (5-15); BUN/Creat Ratio 20.4 RATIO (10-20); Calcium,Total 8.6 mg/dL (8.5-10.1); Chloride 102 mmol/L (98-107); Est Glom Filt Rate - Afr Amer 13 mL/min (>60); Potassium 3.6 mmol/L (3.5-5.1); Sodium Level 138 mmol/L (136-145)
--- NOTE | 2018-03-06 09:49 | ED.RN ---
LAB CALLED CRITICAL OF BUN 114. DR ASHTON AWARE
[2018-03-06 10:49] LABS: Color, Urine Yellow (Yellow); Glucose, Dipstick Normal (Normal); Ketone-Dipstick 5 mg/dl (Negative); Leukocyte Esterase-Dipstick Negative /ul (Negative); Nitrite-Dipstick Negative (Negative); Occult Blood-Urine 50 /ul (Negative); Protein-Dipstick 100 mg/dl (Negative); Urine Bilirubin Dipstick Negative (Negative); Urine Clarity Clear (Clear); Urine Urobilinogen Normal (Normal)
[2018-03-06 10:51] VITALS: BP 165/73; PULSE 65; RESP 24; O2SAT 95
[2018-03-06 10:55] LABS: Red Blood Cells-Urine 0-5 SEEN /hpf (0-5); Squamous Epithelial Cells - UA 0-5 SEEN /hpf (0-5); White Blood Cells 0-5 SEEN /hpf (0-5)
[2018-03-06 10:56] LABS: Bacteria RARE /hpf (None Seen); Mucous, Urine RARE /hpf (<or=2+); Transitional Epithelial - Ur 0-5 SEEN /hpf (0-5)
--- NOTE | 2018-03-06 11:46 | NURSING ---
[facility]
[2018-03-06 13:09] VITALS: BMI 27.8
[2018-03-06 13:34] VITALS: BMI 27.9
--- NOTE | 2018-03-06 13:40 | PCM.HP.STD ---
Problem List (1) Metabolic encephalopathy Status: Acute (2) HARISH (acute kidney injury) Status: Acute (3) Debility Status: Acute History of Present Illness Date of Admission: 03/06/18 Chief Complaint: confusion. weakness. The patient is a 77 year old M who was a week noted on Tuesday. And today vision was much more weak. Additionally, patient was more confused and he is at baseline. Patient was brought to the hospital and was found to have a creatinine of 5.6, with baseline creatinine of 1.59 from January 03. Patient's states that he has not been eating or drinking much during this time as well. Patient is rather apathetic about his symptoms and does not really divulge much in the reasons why he is drinking much. Patient is being admitted for acute kidney injury. Patient did have a CAT scan of his head that showed no acute process for his confusion. [] Past Medical History Past Medical History (Chronic Problems): Chronic Problems History of coronary artery bypass graft (Chronic) Diabetes mellitus, type 2 (Chronic) Diastolic dysfunction (Chronic) Stage I Depression (Chronic) Dementia (Chronic) Hyperlipidemia (Chronic) CAD (coronary artery disease) (Chronic) Hypertension (Chronic) Medical History: Medical History (Last Reviewed 03/06/18 @ 13:42 by Tello Iniguez DO) Dehydration (Acute) E86.0 Hyponatremia (Acute) E87.1 Diabetes mellitus, type 2 (Chronic) E11.9 Diastolic dysfunction (Chronic) I51.9 Stage I Syncope (Acute) R55 Depression (Chronic) F32.9 Dementia (Chronic) F03.90 Hyperlipidemia (Chronic) E78.5 CAD (coronary artery disease) (Chronic) I25.10 Hypertension (Chronic) I10 Allergies rosuvastatin calcium [From Crestor] Allergy (Verified 03/06/18 08:47) Hives atorvastatin calcium [From Lipitor] Adverse Reaction (Verified 03/06/18 08:47) Pain in joints morphine Adverse Reaction (Verified 03/06/18 08:47) Other LOCALIZED IRRITATION OF VEIN pioglitazone HCl [From Actos] Adverse Reaction (Verified 03/06/18 08:47) Pain in joints Home Medications: Ambulatory Orders Medication Instructions Recorded Nitroglycerin [Nitrostat] 0.4 mg SUBLINGUAL Q5M PRN 07/10/13 Multivit-Min/Iron Fum/Folic AC 1 each PO DAILY 03/04/16 [Bjuxq-Wcoexoh-Dtjxsgdf Tablet] Vitamin E 400 unit PO DAILY 03/04/16 Amlodipine [Norvasc] 5 mg PO DAILY 01/02/18 Fluticasone 0.05% [Flonase Nasal 1 spray NASAL DAILY PRN 01/02/18 Jolo] Glimepiride [Amaryl] 4 mg PO DAILY 01/02/18 [place]-3/Dha/Epa/Fish Oil [[place] 3 1 cap PO DAILY 01/02/18 500 Softgel] Simvastatin [Zocor] 40 mg PO QHS 01/02/18 Clonidine HCl [Catapres] 0.1 mg PO BID #60 tab 01/03/18 Hydrochlorothiazide 12.5 mg PO DAILY 03/06/18 [Hydrochlorothiazide] Surgical History: Surgical History (Last Reviewed 03/06/18 @ 13:42 by Tello Iniguez DO) History of coronary artery bypass graft (Chronic) Z95.1 Surgical History: angioplasty - with stents, coronary bypass surgery, - - Surgery on the left leg secondary to traumatic fracture Psychiatric History: No pertinent psych hx Lives: Spouse/ Significant Other Smoking Status: Never smoker Tobacco Use: Non-smoker Alcohol: None Drugs: None - *Family History Maternal Family History: Family History (Last Reviewed 03/06/18 @ 13:43 by Tello Iniguez DO) Father Heart disease History Items: Cancer Paternal Family History: Family History (Last Reviewed 03/06/18 @ 13:43 by Tello Iniguez DO) Father Heart disease History Items: Heart Disease Review of Systems Constitutional: Reports: Anorexia. Denies: Chills, Fever, Night Sweats Eyes: Denies: Blurred vision, Double vision HEENT: Denies: Head Aches, Sinus Congestion, Sinus Drainage Cardiovascular: Denies: Chest Pain, Palpitations Respiratory: Denies: Cough, Shortness of breath at rest, Sputum production Gastrointestinal: Denies: Abdominal Pain, Nausea, Vomiting Genitourinary: Denies: Dysuria Musculoskeletal: Denies: Joint Pain, Joint Tenderness Skin: Reports: - - noted bruising on LUE.. Denies: Dryness Neurological: Reports: Balance problems, Confusion, Tremor - Noted more recently. Denies: Blurred vision, Double vision, Change in Speech, Slurred speech Psychiatric: Denies: Anxiety, Depression Endocrine: Denies: Change in Body Habitus, Heat/ Cold Intolerance Hematologic/ Lymphatic: Reports: Easy Bruising. Denies: Easy Bleeding, Hx of blood clot Comment: All review of systems are negative except as mentioned in the history of present illness and the other review of systems. VTE Information - Inpt Only VTE Present on Admission: No VTE Mechan Device Prophylaxis: None VTE Pharm Prophylaxis ordered?: Yes Patient Problems: Active and Suspected Problems Metabolic encephalopathy (Acute) HARISH (acute kidney injury) (Acute) Debility (Acute) - Physical Exam General: Alert, Cooperative, No apparent distress, Well developed, Well nourished, - - Oriented ?2 HEENT: Atraumatic, PERRLA, EOMI, Normocephalic Oral: Moist Mucosa, No Gingival or Mucosal Lesions/ Ulcerations Neck: No Nodes, Thyroid Normal Size and Texture Lungs: Clear to auscultation, Normal air movement, No rhonchi, No wheeze Cardiovascular: Regular rate, Regular Rhythm, Normal S1, Normal S2, No murmurs Abdomen: Bowel Sounds Present, Soft, Non Tender, Non-Distended, No Hepato-splenomegaly Extremities: No edema, No Calf Tenderness Skin: No rashes, No breakdown Musculoskeletal: No Tenderness to Palpation of Joints or Extremities, No Muscle Wasting Neurological: Cranial nerves II-XII grossly intact, Neuro grossly intact, Motor Exam 5/5 strength throughout, Muscle tone normal, - - tremulous. Psych/Mental Status: Normal Affect, Appropriate Vital Signs Temp Pulse Resp BP Pulse Ox 36.8 C 65 24 H 165/73 H 95 03/06/18 08:47 03/06/18 10:51 03/06/18 10:51 03/06/18 10:51 03/06/18 10:51 Weight: 90.582 kg Body Mass Index (BMI) 27.8 Clinical Impression(s) from Imaging Studies Brain CT 03/06/18 09:06 IMPRESSION: Chronic involutional changes of the brain. Electronically Signed: Hood Almonte MD at 10:25 EDT Tel [phone], Service support , Assessment/Plan All Active Problems Metabolic encephalopathy (Acute) HARISH (acute kidney injury) (Acute) Debility (Acute) Dehydration (Acute) Hyponatremia (Acute) Syncope (Acute) 1. Acute kidney injury Presumed prerenal etiology Hold glimepiride as well as HCTZ IV fluids Reevaluate If gets worse, consider imaging and/or nephrology consultation 2. Metabolic encephalopathy Dementia is listened patient's problem lists though the patient's states he has never been formally diagnosed with it I feel that patient may have some underlying dementia that may be Exacerbated with his current volume status I would anticipate improvement with improvement of his volume status Recommend outpatient follow-up with geriatrics were more formal geriatric assessment Check for reversible causes of dementia, including TSH, B12 and folate. 3. Diabetes mellitus type 2 Hold glimepiride for now given acute kidney injury Sliding scale insulin 4. Debility Likely exacerbated due to the patient's volume status Physical and occupational therapy evaluate and treat Check a 25-hydroxy vitamin D level 5. DVT prophylaxis with subcu heparin 6. Advanced care planning: Discussed with patient and his . No decision yet in regards to CODE STATUS. Patient therefore will be full CODE STATUS at this time. Code Visit Inpatient E&M: 89431 Init Hosp L3
[2018-03-06 13:51] VITALS: BP 154/65; PULSE 65; RESP 16; TEMP 36.8; O2SAT 96
[2018-03-06] MEDS: Heparin Injection (Vial) 5,000 UNIT/ML VIAL 5000 UNIT SC ×2 (15:11→21:13)
[2018-03-06] MEDS: 0.9% Normal Saline 1,000 ML 125 ML IV ×2 (15:11→21:08)
[2018-03-06 16:26] LABS: Bedside Glucose 161 mg/dL (70-110)
[2018-03-06 19:48] VITALS: BP 165/64; PULSE 69; RESP 16; TEMP 37.3; O2SAT 99
[2018-03-06] MEDS: Mupirocin Ointment 22gm Tube 1 APPLIC TOPICAL (21:09)
[2018-03-06] MEDS: Glucerna Shake 120 ML LIQUID PO (21:13)
[2018-03-06 21:25] LABS: Bedside Glucose 209 mg/dL (70-110)
[2018-03-07 02:00] VITALS: BP 158/56; PULSE 92; RESP 18; TEMP 37.2; O2SAT 95
[2018-03-07] MEDS: 0.9% Normal Saline 1,000 ML 125 ML IV ×3 (05:16→21:00)
[2018-03-07] MEDS: Heparin Injection (Vial) 5,000 UNIT/ML VIAL 5000 UNIT SC ×3 (05:25→21:01)
[2018-03-07 06:50] LABS: Bedside Glucose 139 mg/dL (70-110)
[2018-03-07 07:16] LABS: Anion Gap 10 (5-15); BUN 110 mg/dL (7-18); BUN/Creat Ratio 24.2 RATIO (10-20); Calcium,Total 8.2 mg/dL (8.5-10.1); Chloride 109 mmol/L (98-107); Creatinine, Serum 4.54 mg/dL (0.70-1.30); EST Glomerular Filtration Rate 13 mL/min (>60); Est Glom Filt Rate - Afr Amer 16 mL/min (>60); Estimated Creatinine Clearance 14.74 ml/min; Glucose 140 mg/dL (74-106); Potassium 3.6 mmol/L (3.5-5.1); Sodium Level 141 mmol/L (136-145); Thyroid Stim Hormone (TSH) 4.94 uIU/mL (0.358-3.74)
[2018-03-07] MEDS: Multivitamins,Ther W-Minerals Tablet 1 TABLET PO (08:08)
[2018-03-07] MEDS: amLODIPine 5 MG Tablet PO (08:09)
[2018-03-07] MEDS: Mupirocin Ointment 22gm Tube 1 APPLIC TOPICAL ×2 (08:09→21:02)
[2018-03-07] MEDS: Vitamin E 400 UNITS Capsule PO (08:09)
[2018-03-07] MEDS: Glucerna Shake 120 ML LIQUID PO ×4 (08:11→21:02)
[2018-03-07] MEDS: cloNIDine HCl 0.1 MG Tablet PO (08:11)
[2018-03-07 08:15] VITALS: BP 174/78; PULSE 70; RESP 18; TEMP 36.4; O2SAT 95
[2018-03-07] MEDS: Insulin Lispro 100 UNIT/ML INSULN.PEN SQ ×2 (11:11→16:11)
[2018-03-07 12:05] LABS: Bedside Glucose 264 mg/dL (70-110)
--- NOTE | 2018-03-07 12:05 | CASEMGMT ---
RN CM Assessment complete. See Link. DC Plan: undetermined -Discussed pt's weakness prior to admission with patient and his . Pt may need SNF on dc for strengthening. would like his name added to TCU list if needed on dc.Call to [facility] to notify. Bed is available, insurance precert will be needed. -pt did not participate much in conversation. If pt is unable to make own decisions, may need to contact Padmini as DPOA re: medical decisions. -Horacio Billings notified via phone message of reinaldo. Karen CROOKN RN ACM
--- NOTE | 2018-03-07 13:14 | CASEMGMT ---
Social Work Note SW received referral from KEANU Ricketts stating that pt may need SNF placement at discharge and that pt's is agreeable to TCU. RN PABLO Ricketts states that she placed pt on TCU list. SW to follow along to assist with discharge planning. Plan: SNF vs. 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
--- NOTE | 2018-03-07 13:37 | PCM.PN.HOSP ---
Patient Problems: Active and Suspected Problems (Last Reviewed 03/06/18 @ 13:42 by Tello Iniguez DO) Metabolic encephalopathy (Acute) HARISH (acute kidney injury) (Acute) Debility (Acute) Subjective: He remains unchanged, still appears apathetic, though he does respond when questioned. Vitals/I&O's: Vital Signs Temp Pulse Resp BP Pulse Ox 97.6 F L 70 18 174/78 H 95 03/07/18 08:15 03/07/18 08:15 03/07/18 08:15 03/07/18 08:15 03/07/18 08:15 Oxygen Delivery Method Room Air Weight: 199 lb 11.821 oz Body Mass Index (BMI) 27.8 Intake and Output for Last 24 Hours 03/05/18 03/06/18 03/07/18 23:59 23:59 23:59 Intake Total 892 / 892 2878 / 2878 Output Total 250 / 250 550 / 550 Balance 642 / 642 2328 / 2328 General: Alert, Cooperative, No apparent distress HEENT: Atraumatic, EOMI, Normocephalic Oral: Dry Mucosa Neck: Supple, No JVD Lungs: Clear to auscultation, Normal air movement, No rhonchi, No wheeze, No rales Cardiovascular: Regular rate, Regular Rhythm, Normal S1, Normal S2, No murmurs Abdomen: Soft, Non Tender, Non-Distended, No Hepato-splenomegaly Extremities: No edema Skin: - - has what a appears to be a vasculitic rash on his left arm Musculoskeletal: No Tenderness to Palpation of Joints or Extremities, No Muscle Wasting Psych/Mental Status: Flat Affect Laboratory Results 03/06/18 16:24: POC Glucose 161 H 03/06/18 21:08: POC Glucose 209 H 03/07/18 05:44: Sodium 141, Potassium 3.6, Chloride 109 H, Carbon Dioxide 22.0, Anion Gap 10, BUN 110 H*, Creatinine 4.54 H, Estim Creat Clear Calc 14.74, Est GFR (MDRD) Af Amer 16 L, Est GFR (MDRD) Non-Af 13 L, BUN/Creatinine Ratio 24.2 H, Glucose 140 H, Calcium 8.2 L, Folate 23.70, TSH 4.94 H 03/07/18 05:44: Vitamin B12 Pending, Vitamin D 25-Hydroxy Pending 03/07/18 06:47: POC Glucose 139 H 03/07/18 11:14: POC Glucose 264 H Current Medications Amlodipine Besylate (Norvasc) 5 mg PO DAILY [facility] Last Admin: 03/07/18 08:09 Dose: 5 mg Clonidine (Catapres) 0.1 mg PO DAILY [facility] Last Admin: 03/07/18 08:11 Dose: 0.1 mg Dextrose (D50w Syringe) 0 gm IV X1 PRN; Protocol PRN Reason: Hypoglycemia Glucagon () 1 mg IM .X1 PRN PRN Reason: Hypoglycemia Heparin Sodium (Porcine) (Heparin Na) 5,000 unit SC Q8 [facility] Last Admin: 03/07/18 05:25 Dose: 5,000 unit Sodium Chloride () 1,000 mls @ 125 mls/hr IV .Q8H [facility] Last Admin: 03/07/18 13:03 Dose: 125 mls/hr Insulin Human Lispro (Humalog Kwikpen (Bkc)) 0 unit SQ TIDAC [facility] PRN Reason: Protocol Last Admin: 03/07/18 11:11 Dose: 3 units Magnesium Hydroxide (Milk Of Magnesia) 30 ml PO DAILY PRN PRN PRN Reason: Constipation Multivitamins/Minerals (Multivitamin With Minerals) 1 tablet PO DAILY@0800 [facility] Last Admin: 03/07/18 08:08 Dose: 1 tablet Mupirocin (Bactroban) 1 applic TOPICAL BID [facility] PRN Reason: Protocol Last Admin: 03/07/18 08:09 Dose: 1 applicatio Nitroglycerin (Nitrostat) 0.4 mg SUBLINGUAL Q5M PRN PRN Reason: Chest Pain Nutritional Formula (Lactose Free) (Glucerna Shake) 120 ml PO 4X/DAY [facility] Last Admin: 03/07/18 08:11 Dose: 120 ml Simvastatin (Zocor) 40 mg PO HS [facility] Last Admin: 03/06/18 21:13 Dose: 40 mg Sodium Chloride () 5 - 30 ml IV UD PRN PRN Reason: SALINE FLUSH Vitamin E (Vitamin E) 400 units PO DAILY [facility] Last Admin: 03/07/18 08:09 Dose: 400 units Medical Necessity - Tobacco Use Smoking Status: Never smoker Tobacco Use: Non-smoker Assessment/Plan All Active Problems (Last Reviewed 08/20/18 @ 13:42 by Tello Iniguez DO) Metabolic encephalopathy (Acute) HARISH (acute kidney injury) (Acute) Debility (Acute) Dehydration (Acute) Hyponatremia (Acute) Syncope (Acute) 1. LUE rash/Melena/HARISH that is improving - Unsure of the etiology of the rash, the constellation of symptoms with worsening renal function, melena, and a rash makes me consider vasculitis as a possibility - ESR/CRP pending - UA with elevated protein - Consult to nephrology for further clarification, may need biopsy of the lesions - Uric acid pending - Will obtain CXR for his subjective SOB though he is oxygenating well - Creatinine is improving with IVF which will be continued 2. Dementia/Metabolic encephalopathy from the renal dysfunction - TSH is ok, the fact that it is slightly elevated during an acute illness is not impressive - Folate is normal and B12 is pending - c/w IVF 3. DM2 - Hold home medications - C/w SSI 4. HTN/HLD/CAD - Stable - C/w home medications DVT: Heparin Diet: Code: FULL Code Visit Inpatient E&M: 26511 Subs Hosp L2
[2018-03-07 13:53] LABS: Uric Acid 13.8 mg/dL (3.5-7.2)
[2018-03-07 14:00] LABS: Erythrocyte Sedimentation Rate 44 mm/hr (0-20)
[2018-03-07 14:15] VITALS: BP 162/70; PULSE 68; RESP 20; TEMP 37; O2SAT 99
--- NOTE | 2018-03-07 14:54 | CHAPLAIN ---
patient was sleeping and so I did not disturb
[2018-03-07 16:16] LABS: Bedside Glucose 170 mg/dL (70-110)
[2018-03-07 20:15] VITALS: BP 162/74; PULSE 72; RESP 18; TEMP 37.1; O2SAT 96
[2018-03-07 21:41] LABS: Bedside Glucose 192 mg/dL (70-110)
[2018-03-08 02:15] VITALS: BP 163/71; PULSE 72; RESP 18; TEMP 37.1; O2SAT 98
[2018-03-08] MEDS: 0.9% Normal Saline 1,000 ML 125 ML IV ×3 (04:55→23:11)
[2018-03-08] MEDS: Insulin Lispro 100 UNIT/ML INSULN.PEN SQ ×3 (06:38→17:33)
[2018-03-08] MEDS: Heparin Injection (Vial) 5,000 UNIT/ML VIAL 5000 UNIT SC ×3 (06:41→22:55)
[2018-03-08 06:50] LABS: Bedside Glucose 163 mg/dL (70-110)
[2018-03-08 07:08] LABS: Anion Gap 12 (5-15); BUN 99 mg/dL (7-18); BUN/Creat Ratio 25.4 RATIO (10-20); Chloride 112 mmol/L (98-107); Creatinine, Serum 3.89 mg/dL (0.70-1.30); EST Glomerular Filtration Rate 16 mL/min (>60); Est Glom Filt Rate - Afr Amer 19 mL/min (>60); Estimated Creatinine Clearance 17.21 ml/min; Glucose 166 mg/dL (74-106); Sodium Level 143 mmol/L (136-145)
[2018-03-08 07:37] VITALS: BP 167/65; PULSE 75; RESP 18; TEMP 37.1; O2SAT 98
--- NOTE | 2018-03-08 08:51 | CON.PCM_ITS ---
Consultation - Renal 03/08/18 PCP/ Referring MD: Requesting physician: [] Primary care physician: Stan Huerta Reason for Consultation:: HARISH on CKD stage 3 - History of Present Illness History of Present Illness: The patient is a 77 year old M with PMH for CKD stage 3 due to diabetes, hypertension, baseline creatinine 1.7-2.0 in September 2016 when he was last seen in the office presents with confusion, poor oral intake, reports falling in the bathroom according to the pt . He had upper extremity tremor for a few days prior to admit according to his . He has swelling in his right knee from fall. No history of head trauma. He is a poor historian, slow to respond to time, place. He has been taking ibuprofen 2 tablets twice a week for pain, on thiazide diuretic at home for hypertension. He has constipation. Denied nausea, vomiting, abdominal pain. Denied hemoptysis, cough, epistaxis. He has a purpuric rash on forearms with history of falling at home. Denied hesitancy, dysuria, hematuria, tea colored urine but did notice dark urine. Creatinine on admit 5.6 improved to 3.8 today with iv hydration. Serologies sent for hematuria , rash, elevated CRP. Renal US without hydro. - Allergies Allergies: Allergies rosuvastatin calcium [From Crestor] Allergy (Verified 03/06/18 08:47) Hives atorvastatin calcium [From Lipitor] Adverse Reaction (Verified 03/06/18 08:47) Pain in joints morphine Adverse Reaction (Verified 03/06/18 08:47) Other LOCALIZED IRRITATION OF VEIN pioglitazone HCl [From Actos] Adverse Reaction (Verified 03/06/18 08:47) Pain in joints - Current Medications Current Medications: Current Medications Amlodipine Besylate (Norvasc) 5 mg PO DAILY [facility] Last Admin: 03/07/18 08:09 Dose: 5 mg Clonidine (Catapres) 0.1 mg PO DAILY [facility] Last Admin: 03/07/18 08:11 Dose: 0.1 mg Dextrose (D50w Syringe) 0 gm IV X1 PRN; Protocol PRN Reason: Hypoglycemia Glucagon () 1 mg IM .X1 PRN PRN Reason: Hypoglycemia Heparin Sodium (Porcine) (Heparin Na) 5,000 unit SC Q8 [facility] Last Admin: 03/08/18 06:41 Dose: 5,000 unit Sodium Chloride () 1,000 mls @ 125 mls/hr IV .Q8H [facility] Last Admin: 03/08/18 04:55 Dose: 125 mls/hr Insulin Human Lispro (Humalog Raminpen (Bkc)) 0 unit SQ TIDAC [facility] PRN Reason: Protocol Last Admin: 03/08/18 06:38 Dose: 1 units Magnesium Hydroxide (Milk Of Magnesia) 30 ml PO DAILY PRN PRN PRN Reason: Constipation Multivitamins/Minerals (Multivitamin With Minerals) 1 tablet PO DAILY@0800 [facility] Last Admin: 03/07/18 08:08 Dose: 1 tablet Mupirocin (Bactroban) 1 applic TOPICAL BID [facility] PRN Reason: Protocol Last Admin: 03/07/18 21:02 Dose: 1 applicatio Nitroglycerin (Nitrostat) 0.4 mg SUBLINGUAL Q5M PRN PRN Reason: Chest Pain Nutritional Formula (Lactose Free) (Glucerna Shake) 120 ml PO 4X/DAY [facility] Last Admin: 03/07/18 21:02 Dose: 120 ml Simvastatin (Zocor) 40 mg PO HS [facility] Last Admin: 03/07/18 21:01 Dose: 40 mg Sodium Chloride () 5 - 30 ml IV UD PRN PRN Reason: SALINE FLUSH Vitamin E (Vitamin E) 400 units PO DAILY [facility] Last Admin: 03/07/18 08:09 Dose: 400 units - Past Medical History Past Medical History (Chronic Problems): Chronic Problems (Last Reviewed 03/06/18 @ 13:42 by Tello Iniguez DO) History of coronary artery bypass graft (Chronic) Diabetes mellitus, type 2 (Chronic) Diastolic dysfunction (Chronic) Stage I Depression (Chronic) Dementia (Chronic) Hyperlipidemia (Chronic) CAD (coronary artery disease) (Chronic) Hypertension (Chronic) - Past Surgical History Surgical History: angioplasty - with stents, coronary bypass surgery, - - Surgery on the left leg secondary to traumatic fracture - Social History Smoking Status: Never smoker Alcohol: None Drugs: None - Family History Maternal Family History: Family History (Last Reviewed 03/06/18 @ 13:43 by Tello Iniguez DO) Father Heart disease History Items: Cancer Paternal Family History: Family History (Last Reviewed 03/06/18 @ 13:43 by Tello Iniguez DO) Father Heart disease History Items: Heart Disease Review of Systems Constitutional: Reports: Anorexia, Malaise, Weakness, Fatigue. Denies: Chills, Fever Eyes: Denies: Blurred vision HEENT: Reports: - - no epistaxis Cardiovascular: Denies: Chest Pain, Syncope Respiratory: Denies: Cough, Shortness of breath at rest Gastrointestinal: Reports: Constipation, Diarrhea, - - anorexia. Denies: Abdominal Pain, Nausea, Vomiting Genitourinary: Reports: - - dark urine. Denies: Dysuria, Frequency, Hematuria Musculoskeletal: Denies: Joint stiffness, Joint swelling Skin: Reports: Rash - ecchymosis on forearms Neurological: Reports: Confusion Psychiatric: Denies: Anxiety, Depression Hematologic/ Lymphatic: Reports: Anemia, Purpura Patient Problems: Active and Suspected Problems (Last Reviewed 03/06/18 @ 13:42 by Tello Iniguez DO) Metabolic encephalopathy (Acute) HARISH (acute kidney injury) (Acute) Debility (Acute) - Physical Exam General: Alert, Oriented x3 - slow to answer questions, Cooperative, No apparent distress HEENT: PERRLA, EOMI Oral: Dry Mucosa Neck: Supple Lungs: Clear to auscultation Cardiovascular: Regular rate, Murmur Abdomen: Bowel Sounds Present, Soft, Non Tender, Non-Distended Extremities: No edema, - - rt knee swelling Skin: Rash Present Musculoskeletal: No Muscle Wasting Neurological: - - hx confusion, tremor at rest Psych/Mental Status: Flat Affect, Alert and oriented to time, place, person, mood and affect Vital Signs Temp Pulse Resp BP Pulse Ox 98.7 F 75 18 167/65 H 98 03/08/18 07:37 03/08/18 07:37 03/08/18 07:37 03/08/18 07:37 03/08/18 07:37 Oxygen Delivery Method Room Air Weight: 90.6 kg Body Mass Index (BMI) 27.8 Intake and Output for Last 24 Hours 03/06/18 03/07/18 03/08/18 23:59 23:59 23:59 Intake Total 892 / 892 4111 / 4111 1682 / 1682 Output Total 250 / 250 875 / 875 250 / 250 Balance 642 / 642 3236 / 3236 1432 / 1432 Laboratory Tests Past 24 Hrs 03/07/18 03/07/18 03/07/18 05:44 05:44 05:44 ESR 44 H Sodium Potassium Chloride Carbon Dioxide Anion Gap BUN Creatinine Estim Creat Clear Calc Est GFR (MDRD) Af Amer Est GFR (MDRD) Non-Af BUN/Creatinine Ratio Glucose Uric Acid 13.8 H Calcium C-React Prot Ext Range 55.20 H KARTHIK Screen TERESO-1 Antibody SS-A/Ro IgG Antibody SS-B/La IgG Antibody Sm (Ontiveros) Antibody [employer]NING HANGER SUPERVISOR Antibody Scl-70 Scleroderma Ab Double Strand DNA Ab Centromere B Antibody 03/07/18 03/08/18 05:44 06:30 ESR Sodium 143 Potassium 4.0 Chloride 112 H Carbon Dioxide 19.0 L Anion Gap 12 BUN 99 H Creatinine 3.89 H Estim Creat Clear Calc 17.21 Est GFR (MDRD) Af Amer 19 L Est GFR (MDRD) Non-Af 16 L BUN/Creatinine Ratio 25.4 H Glucose 166 H Uric Acid Calcium 8.0 L C-React Prot Ext Range KARTHIK Screen Pending TERESO-1 Antibody Pending SS-A/Ro IgG Antibody Pending SS-B/La IgG Antibody Pending Sm (Ontiveros) Antibody Pending [employer]NING HANGER SUPERVISOR Antibody Pending Scl-70 Scleroderma Ab Pending Double Strand DNA Ab Pending Centromere B Antibody Pending POC Glucose 03/08/18 03/07/18 03/07/18 06:37 21:31 16:10 POC Glucose 163 H 192 H 170 H 03/07/18 11:14 POC Glucose 264 H Assessment/Plan All Active Problems (Last Reviewed 03/06/18 @ 13:42 by Tello Iniguez DO) Metabolic encephalopathy (Acute) HARISH (acute kidney injury) (Acute) Debility (Acute) Dehydration (Acute) Hyponatremia (Acute) Syncope (Acute) 1. Acute on CKD stage 3 baseline creatinine 1.7-2.0 in 2017 with underlying diabetic, hypertensive nephropathy. Creatinine up to 5.6 on admit likely due to dehydration on diuretics, prerenal azotemia from NSAIDs. Creatinine improved to 3.8 with iv hydration. Continue to hold diuretics. Avoid NSAIDs. Renal US unremarkable 2. Microscopic hematuria with elevated CRP, skin rash. Check serologies. 3. DM2 stable, proteinuria on UA 4. HTN BP elevated, adjust meds as needed 5. Weakness, fall at home 6. Hyperuricemia which may be from poor clearance with renal failure 7. Confusion likely metabolic encephalopathy 8. Vit D deficiency, replace
[2018-03-08 08:55] LABS: Vitamin B12 246 pg/mL (211-911); Vitamin D,25 Hydroxy 12.8 ng/mL (29.95-100.01)
[2018-03-08] MEDS: Mupirocin Ointment 22gm Tube 1 APPLIC TOPICAL ×2 (09:57→23:00)
[2018-03-08] MEDS: Vitamin E 400 UNITS Capsule PO (09:57)
[2018-03-08] MEDS: amLODIPine 5 MG Tablet PO (09:57)
[2018-03-08] MEDS: Multivitamins,Ther W-Minerals Tablet 1 TABLET PO (09:57)
[2018-03-08] MEDS: Glucerna Shake 120 ML LIQUID PO ×3 (10:00→22:59)
[2018-03-08] MEDS: cloNIDine HCl 0.1 MG Tablet PO (10:00)
[2018-03-08 11:16] LABS: Bedside Glucose 250 mg/dL (70-110)
--- NOTE | 2018-03-08 11:16 | CASEMGMT ---
POA/LW documents in E-chart
--- NOTE | 2018-03-08 11:29 | CASEMGMT ---
SW spoke w/pt and in room in regard to discharge plan. in agreement w/pt going to TCU at discharge, pt not fully participating in the conversation. Pt's states they need to check w/pt's daughter however, and she is in [place] at present, she is not aware pt is here. She states daughter will be back in the next couple of days. She states they did let pt's son know pt is here. SW explained will proceed with the precert for TCU, agreeable to this. SW called TCU, confirmed w/Paulina they will have a bed for pt. SW faxed information to [facility] for precert. SW did go back and speak w/pt's again, encouraged her to reach out to pt's daughter. Pt's states she does not know if she can reach her, but will try and let this SW know if she reaches her. SW explained that given she is POA, if she is able to be reached, she would likely want to know pt is in the hospital. is agreement with this, will let this SW know. JOANN will continue to follow. MACARIO Flores, DIRECTOR OF EMPLOYER SERVICES
--- NOTE | 2018-03-08 12:07 | PCM.PN.HOSP ---
Patient Problems: Active and Suspected Problems (Last Reviewed 03/06/18 @ 13:42 by Tello Iniguez DO) Metabolic encephalopathy (Acute) HARISH (acute kidney injury) (Acute) Debility (Acute) Subjective: Feels better today and kidney function is improving, but rash has worsened a little and he is having right knee pain Objective: General: Alert, Cooperative, No apparent distress HEENT: Atraumatic, EOMI, Normocephalic Oral: Dry Mucosa Neck: Supple, No JVD Lungs: Clear to auscultation, Normal air movement, No rhonchi, No wheeze, No rales Cardiovascular: Regular rate, Regular Rhythm, Normal S1, Normal S2, No murmurs Abdomen: Soft, Non Tender, Non-Distended, No Hepato-splenomegaly Extremities: No edema Skin: - - has what a appears to be a vasculitic rash on his left arm Musculoskeletal: No Tenderness to Palpation of Joints or Extremities, No Muscle Wasting Psych/Mental Status: Flat Affect Vitals/I&O's: Vital Signs Temp Pulse Resp BP Pulse Ox 98.7 F 75 18 167/65 H 98 03/08/18 07:37 03/08/18 07:37 03/08/18 07:37 03/08/18 07:37 03/08/18 07:37 Oxygen Delivery Method Room Air Weight: 199 lb 11.821 oz Body Mass Index (BMI) 27.8 Intake and Output for Last 24 Hours 03/06/18 03/07/18 03/08/18 23:59 23:59 23:59 Intake Total 892 / 892 4111 / 4111 3074 / 3074 Output Total 250 / 250 875 / 875 250 / 250 Balance 642 / 642 3236 / 3236 2824 / 2824 Laboratory Results 03/07/18 05:44: Vitamin B12 246, Vitamin D 25-Hydroxy 12.8 L 03/07/18 05:44: ESR 44 H 03/07/18 05:44: C-React Prot Ext Range 55.20 H 03/07/18 05:44: Uric Acid 13.8 H 03/07/18 05:44: KARTHIK Screen Pending, TERESO-1 Antibody Pending, SS-A/Ro IgG Antibody Pending, SS-B/La IgG Antibody Pending, Sm (Ontiveros) Antibody Pending, DEGREASING SOLUTION MIXER Antibody Pending, Scl-70 Scleroderma Ab Pending, Double Strand DNA Ab Pending, Centromere B Antibody Pending 03/07/18 16:10: POC Glucose 170 H 03/07/18 21:31: POC Glucose 192 H 03/08/18 06:30: Sodium 143, Potassium 4.0, Chloride 112 H, Carbon Dioxide 19.0 L, Anion Gap 12, BUN 99 H, Creatinine 3.89 H, Estim Creat Clear Calc 17.21, Est GFR (MDRD) Af Amer 19 L, Est GFR (MDRD) Non-Af 16 L, BUN/Creatinine Ratio 25.4 H, Glucose 166 H, Calcium 8.0 L 03/08/18 06:37: POC Glucose 163 H 03/08/18 11:07: POC Glucose 250 H Current Medications Amlodipine Besylate (Norvasc) 5 mg PO DAILY [facility] Last Admin: 03/08/18 09:57 Dose: 5 mg Clonidine (Catapres) 0.1 mg PO DAILY [facility] Last Admin: 03/08/18 10:00 Dose: 0.1 mg Dextrose (D50w Syringe) 0 gm IV X1 PRN; Protocol PRN Reason: Hypoglycemia Glucagon () 1 mg IM .X1 PRN PRN Reason: Hypoglycemia Heparin Sodium (Porcine) (Heparin Na) 5,000 unit SC Q8 [facility] Last Admin: 03/08/18 06:41 Dose: 5,000 unit Sodium Chloride () 1,000 mls @ 125 mls/hr IV .Q8H [facility] Last Admin: 03/08/18 04:55 Dose: 125 mls/hr Insulin Human Lispro (Humalog Kwikpen (Bkc)) 0 unit SQ TIDAC [facility] PRN Reason: Protocol Last Admin: 03/08/18 11:09 Dose: 3 units Magnesium Hydroxide (Milk Of Magnesia) 30 ml PO DAILY PRN PRN PRN Reason: Constipation Multivitamins/Minerals (Multivitamin With Minerals) 1 tablet PO DAILY@0800 [facility] Last Admin: 03/08/18 09:57 Dose: 1 tablet Mupirocin (Bactroban) 1 applic TOPICAL BID [facility] PRN Reason: Protocol Last Admin: 03/08/18 09:57 Dose: 1 applicatio Nitroglycerin (Nitrostat) 0.4 mg SUBLINGUAL Q5M PRN PRN Reason: Chest Pain Nutritional Formula (Lactose Free) (Eduardo Ferguson) 120 ml PO 4X/DAY [facility] Last Admin: 03/08/18 10:00 Dose: 120 ml Simvastatin (Zocor) 40 mg PO HS [facility] Last Admin: 03/07/18 21:01 Dose: 40 mg Sodium Chloride () 5 - 30 ml IV UD PRN PRN Reason: SALINE FLUSH Vitamin E (Vitamin E) 400 units PO DAILY [facility] Last Admin: 03/08/18 09:57 Dose: 400 units Medical Necessity - Tobacco Use Smoking Status: Never smoker Tobacco Use: Non-smoker Assessment/Plan All Active Problems (Last Reviewed 03/06/18 @ 13:42 by Tello Iniguez DO) Metabolic encephalopathy (Acute) HARISH (acute kidney injury) (Acute) Debility (Acute) Dehydration (Acute) Hyponatremia (Acute) Syncope (Acute) 1. LUE rash/Melena/HARISH that is improving/Right knee gout - Unsure of the etiology of the rash, the constellation of symptoms with worsening renal function, melena, and a rash makes me consider vasculitis as a possibility - ESR/CRP are both elevated - UA with elevated protein - Consult to nephrology for further clarification, may need biopsy of the lesions - Uric acid also elevated, and now with right knee pain likely gout, will start steroids - CXR was normal - Creatinine is improving with IVF which will be continued 2. Dementia/Metabolic encephalopathy from the renal dysfunction - TSH is ok, the fact that it is slightly elevated during an acute illness is not impressive - Folate/B12 normal - c/w IVF 3. DM2 - Hold home medications - C/w SSI 4. HTN/HLD/CAD - Stable - C/w home medications DVT: Heparin Diet: Calorie Controlled Code: FULL Code Visit Inpatient E&M: 16461 Subs Hosp L2
[2018-03-08 13:35] VITALS: BP 145/62; PULSE 79; RESP 20; TEMP 37; O2SAT 98
--- NOTE | 2018-03-08 16:50 | CHAPLAIN ---
attempt made to visit but patient was sleeping
[2018-03-08 17:41] LABS: Bedside Glucose 197 mg/dL (70-110)
[2018-03-08] MEDS: 0.9% NaCl Peripheral Flush Adult/Peds IV (18:43)
[2018-03-08 22:50] VITALS: BP 175/84; PULSE 89; RESP 20; TEMP 36.9; O2SAT 97
[2018-03-08 22:55] VITALS: PULSE 89; RESP 20; O2SAT 97
[2018-03-08] MEDS: Docusate Sodium 100 MG Capsule PO (22:55)
[2018-03-08 23:21] LABS: Bedside Glucose 244 mg/dL (70-110)
[2018-03-08 23:55] LABS: Protein, Urine (Random) 314.7 mg/dL (<11.9); Urine Sodium 35 mmol/L (Not Establ.)
[2018-03-09 05:52] VITALS: BP 166/71; PULSE 80; RESP 18; TEMP 36.6; O2SAT 98
[2018-03-09] MEDS: Heparin Injection (Vial) 5,000 UNIT/ML VIAL 5000 UNIT SC ×2 (05:53→14:42)
[2018-03-09 06:10] VITALS: PULSE 80; RESP 20; O2SAT 98
[2018-03-09] MEDS: Insulin Lispro 100 UNIT/ML INSULN.PEN SQ ×2 (06:52→12:08)
[2018-03-09 07:00] LABS: BUN 96 mg/dL (7-18); Creatinine, Serum 3.79 mg/dL (0.70-1.30); EST Glomerular Filtration Rate 17 mL/min (>60); Estimated Creatinine Clearance 17.66 ml/min; Glucose 272 mg/dL (74-106)
[2018-03-09 07:00] LABS: Bedside Glucose 283 mg/dL (70-110)
[2018-03-09 07:01] LABS: Anion Gap 14 (5-15); BUN/Creat Ratio 25.3 RATIO (10-20); Calcium,Total 8.2 mg/dL (8.5-10.1); Chloride 114 mmol/L (98-107); Est Glom Filt Rate - Afr Amer 20 mL/min (>60); Potassium 4.1 mmol/L (3.5-5.1); Sodium Level 145 mmol/L (136-145)
[2018-03-09] MEDS: 0.9% Normal Saline 1,000 ML 125 ML IV (07:51)
--- NOTE | 2018-03-09 08:46 | PCM.PN.REN ---
Patient Problems: Active and Suspected Problems (Last Reviewed 03/06/18 @ 13:42 by Tello Iniguez DO) Metabolic encephalopathy (Acute) HARISH (acute kidney injury) (Acute) Debility (Acute) Subjective: denies nausea, vomiting, SOB. +BM. Still with tremors. Appetite improving. at bedside, discussed kidney bx, dialysis options. - Physical Exam General: Alert, Oriented x3, Cooperative, No apparent distress HEENT: PERRLA, EOMI Oral: Moist Mucosa Neck: Supple Lungs: Clear to auscultation Cardiovascular: Regular rate, No rub noted Abdomen: Bowel Sounds Present, Soft, Non Tender, Non-Distended Extremities: No edema Skin: - - ecchymosis on arms Musculoskeletal: No Muscle Wasting Neurological: - - tremor BUE Psych/Mental Status: Normal Affect, - - cognitive impairment Vital Signs Temp Pulse Resp BP Pulse Ox 98 F 80 20 H 166/71 H 98 03/09/18 05:52 03/09/18 06:10 03/09/18 06:10 03/09/18 05:52 03/09/18 06:10 Oxygen Delivery Method Room Air Weight: 90.6 kg Body Mass Index (BMI) 27.8 Intake and Output for Last 24 Hours 03/07/18 03/08/18 03/09/18 23:59 23:59 23:59 Intake Total 4111 / 4111 4123 / 4123 1646 / 1646 Output Total 875 / 875 750 / 750 150 / 150 Balance 3236 / 3236 3373 / 3373 1496 / 1496 Laboratory Tests Past 24 Hrs 03/07/18 03/08/18 03/08/18 05:44 23:30 23:30 Sodium Potassium Chloride Carbon Dioxide Anion Gap BUN Creatinine Estim Creat Clear Calc Est GFR (MDRD) Af Amer Est GFR (MDRD) Non-Af BUN/Creatinine Ratio Glucose Calcium Vitamin B12 246 Vitamin D 25-Hydroxy 12.8 L U Random Total Protein 314.7 H Cancelled Ur Random Sodium 35 Urine Creatinine 104.00 03/08/18 03/09/18 23:30 06:26 Sodium 145 Potassium 4.1 Chloride 114 H Carbon Dioxide 17.0 L Anion Gap 14 BUN 96 H Creatinine 3.79 H Estim Creat Clear Calc 17.66 Est GFR (MDRD) Af Amer 20 L Est GFR (MDRD) Non-Af 17 L BUN/Creatinine Ratio 25.3 H Glucose 272 H Calcium 8.2 L Vitamin B12 Vitamin D 25-Hydroxy U Random Total Protein Ur Random Sodium Cancelled Urine Creatinine POC Glucose 03/09/18 03/08/18 03/08/18 06:49 22:54 17:31 POC Glucose 283 H 244 H 197 H 03/08/18 11:07 POC Glucose 250 H Medical Necessity - Tobacco Use Smoking Status: Never smoker Tobacco Use: Non-smoker Assessment/Plan All Active Problems (Last Reviewed 03/06/18 @ 13:42 by Tello Iniguez DO) Metabolic encephalopathy (Acute) HARISH (acute kidney injury) (Acute) Debility (Acute) Dehydration (Acute) Hyponatremia (Acute) Syncope (Acute) 1. Acute on CKD stage 3 baseline creatinine 1.7-2.0 in 2017 with underlying diabetic, hypertensive nephropathy. Creatinine up to 5.6 on admit likely due to dehydration on diuretics, prerenal azotemia from NSAIDs. Creatinine not much improved today. Discussed possible dialysis. Await serologies. Check 24h urine 2. Microscopic hematuria with elevated CRP, skin rash. Check serologies. 3. DM2 stable, proteinuria 3g, check SPEP, UPEP 4. HTN BP elevated, adjust as needed, increase clonidine 5. Weakness, fall at home 6. Hyperuricemia which may be from poor clearance with renal failure 7. Confusion likely metabolic encephalopathy 8. Vit D deficiency, replace
[2018-03-09 09:55] VITALS: BP 165/65; PULSE 80; RESP 16; TEMP 37.1; O2SAT 98
[2018-03-09] MEDS: Vitamin E 400 UNITS Capsule PO (09:58)
[2018-03-09] MEDS: Docusate Sodium 100 MG Capsule PO (09:59)
[2018-03-09] MEDS: Multivitamins,Ther W-Minerals Tablet 1 TABLET PO (09:59)
[2018-03-09] MEDS: Polyethylene Glycol 3350 17 GM PACKET PO (10:00)
[2018-03-09] MEDS: amLODIPine 5 MG Tablet PO (10:01)
[2018-03-09] MEDS: cloNIDine HCl 0.1 MG Tablet PO (10:05)
[2018-03-09] MEDS: Glucerna Shake 120 ML LIQUID PO ×2 (10:05→14:44)
[2018-03-09] MEDS: Mupirocin Ointment 22gm Tube 1 APPLIC TOPICAL (10:09)
[2018-03-09] MEDS: 0.9% NaCl Peripheral Flush Adult/Peds IV (10:13)
--- NOTE | 2018-03-09 11:14 | CASEMGMT ---
SW spoke w/pt and at the bedside. When asked, pt does say he feels better today. SW asked if she spoke w/pt's daughter. She states she has, and pt's daughter is in agreement with the discharge plan to TCU. She states pt's daughter will be getting back from [place] either today or tomorrow. SW explained still waiting to hear back from insurance, and waiting to hear from physician regarding when pt is ready for discharge. SW will continue to follow for discharge to TCU when ready and precert attained. MACARIO Flores, LOG MARKER
[2018-03-09 12:15] LABS: Bedside Glucose 298 mg/dL (70-110)
--- NOTE | 2018-03-09 12:35 | PCM.PN.HOSP ---
Patient Problems: Active and Suspected Problems (Last Reviewed 03/06/18 @ 13:42 by Tello Iniguez DO) Metabolic encephalopathy (Acute) HARISH (acute kidney injury) (Acute) Debility (Acute) Subjective: Feeling better today, no nausea or vomiting. His right knee is less painful today but still swollen Objective: General: Alert, Cooperative, No apparent distress HEENT: Atraumatic, EOMI, Normocephalic Oral: Dry Mucosa Neck: Supple, No JVD Lungs: Clear to auscultation, Normal air movement, No rhonchi, No wheeze, No rales Cardiovascular: Regular rate, Regular Rhythm, Normal S1, Normal S2, No murmurs Abdomen: Soft, Non Tender, Non-Distended, No Hepato-splenomegaly Extremities: No edema Skin: - - has what a appears to be a vasculitic rash on his left arm Musculoskeletal: Right knee is swollen and more warm compared to the L Psych/Mental Status: Flat Affect Vitals/I&O's: Vital Signs Temp Pulse Resp BP Pulse Ox 98.8 F 80 16 165/65 H 98 03/09/18 09:55 03/09/18 09:55 03/09/18 09:55 03/09/18 09:55 03/09/18 09:55 Oxygen Delivery Method Room Air Weight: 199 lb 11.821 oz Body Mass Index (BMI) 27.8 Intake and Output for Last 24 Hours 03/07/18 03/08/18 03/09/18 23:59 23:59 23:59 Intake Total 4111 / 4111 4123 / 4123 1646 / 1646 Output Total 875 / 875 750 / 750 150 / 150 Balance 3236 / 3236 3373 / 3373 1496 / 1496 Laboratory Results 03/07/18 09:03: Total Protein (PEP) Pending, Albumin (PEP) Pending, Globulin (PEP) Pending, Albumin/Globulin (PEP) Pending, Wclek-5-Hthehfzpi Pending, Dpujp-8-Dsursypvr Pending, Beta Globulins Pending, Gamma Globulins Pending, M-Marcos Pending 03/08/18 17:31: POC Glucose 197 H 03/08/18 22:54: POC Glucose 244 H 03/08/18 23:30: U Random Total Protein 314.7 H, Ur Random Sodium 35, Urine Creatinine 104.00 03/08/18 23:30: U Random Total Protein Cancelled 03/08/18 23:30: Ur Random Sodium Cancelled 03/09/18 06:26: Sodium 145, Potassium 4.1, Chloride 114 H, Carbon Dioxide 17.0 L, Anion Gap 14, BUN 96 H, Creatinine 3.79 H, Estim Creat Clear Calc 17.66, Est GFR (MDRD) Af Amer 20 L, Est GFR (MDRD) Non-Af 17 L, BUN/Creatinine Ratio 25.3 H, Glucose 272 H, Calcium 8.2 L 03/09/18 06:49: POC Glucose 283 H 03/09/18 12:05: POC Glucose 298 H Current Medications Amlodipine Besylate (Norvasc) 5 mg PO DAILY [facility] Last Admin: 03/09/18 10:01 Dose: 5 mg Clonidine (Catapres) 0.1 mg PO BID [facility] Last Admin: 03/09/18 10:05 Dose: 0.1 mg Dextrose (D50w Syringe) 0 gm IV X1 PRN; Protocol PRN Reason: Hypoglycemia Docusate Sodium (Colace) 100 mg PO BID [facility] Last Admin: 03/09/18 09:59 Dose: 100 mg Ergocalciferol (Vitamin D) 50,000 unit PO Q7D [facility] Last Admin: 03/09/18 09:58 Dose: 50,000 unit Glucagon () 1 mg IM .X1 PRN PRN Reason: Hypoglycemia Heparin Sodium (Porcine) (Heparin Na) 5,000 unit SC Q8 [facility] Last Admin: 03/09/18 05:53 Dose: 5,000 unit Sodium Chloride () 1,000 mls @ 75 mls/hr IV .[id number] [facility] Last Admin: 03/09/18 09:57 Dose: Not Given Insulin Human Lispro (Humalog Kwikpen (Bkc)) 0 unit SQ TIDAC [facility] PRN Reason: Protocol Last Admin: 03/09/18 12:08 Dose: 4 units Magnesium Hydroxide (Milk Of Magnesia) 30 ml PO DAILY [facility] PRN PRN Reason: Constipation Methylprednisolone (Solu-Medrol) 40 mg IV DAILY [facility] Last Admin: 03/09/18 10:02 Dose: 40 mg Multivitamins/Minerals (Multivitamin With Minerals) 1 tablet PO DAILY@0800 [facility] Last Admin: 03/09/18 09:59 Dose: 1 tablet Mupirocin (Bactroban) 1 applic TOPICAL BID [facility] PRN Reason: Protocol Last Admin: 03/09/18 10:09 Dose: 1 applicatio Nitroglycerin (Nitrostat) 0.4 mg SUBLINGUAL Q5M PRN PRN Reason: Chest Pain Nutritional Formula (Lactose Free) (Glucerna Shake) 120 ml PO 4X/DAY [facility] Last Admin: 03/09/18 10:05 Dose: 120 ml Polyethylene Glycol (Miralax) 17 gm PO DAILY [facility] Last Admin: 03/09/18 10:00 Dose: 17 gm Simvastatin (Zocor) 40 mg PO HS [facility] Last Admin: 03/08/18 22:56 Dose: 40 mg Sodium Chloride () 5 - 30 ml IV UD PRN PRN Reason: SALINE FLUSH Last Admin: 03/09/18 10:13 Dose: 10 ml Vitamin E (Vitamin E) 400 units PO DAILY [facility] Last Admin: 03/09/18 09:58 Dose: 400 units Medical Necessity - Tobacco Use Smoking Status: Never smoker Tobacco Use: Non-smoker Assessment/Plan All Active Problems (Last Reviewed 03/06/18 @ 13:42 by Tello Iniguez DO) Metabolic encephalopathy (Acute) HARISH (acute kidney injury) (Acute) Debility (Acute) Dehydration (Acute) Hyponatremia (Acute) Syncope (Acute) 1. LUE rash/Melena/HARISH that is improving/Right knee gout - Unsure of the etiology of the rash, the constellation of symptoms with worsening renal function, melena, and a rash makes me consider vasculitis as a possibility - ESR/CRP are both elevated - UA with elevated protein - Consult to nephrology for further clarification, may need biopsy of the lesions - Uric acid also elevated, and now with right knee pain likely gout, c/w steroids, will need allopurinol as an outpatient - CXR was normal - Creatinine is improving though no significant change today with IVF which will be continued - SPEP and UPEP is pending 2. Dementia/Metabolic encephalopathy from the renal dysfunction - TSH is ok, the fact that it is slightly elevated during an acute illness is not impressive - Folate/B12 normal - c/w IVF 3. DM2 - Hold home medications - C/w SSI 4. HTN/HLD/CAD - Stable - C/w home medications DVT: Heparin Diet: Calorie Controlled Code: FULL Dispo: TCU, obtaining pre-cert today, ann-marie HURST today or tomorrow Code Visit Inpatient E&M: 81833 Subs Hosp L2
--- NOTE | 2018-03-09 13:47 | CHAPLAIN ---
Type of Pastoral Visit _x__ Initial Visit ___ Follow-up Visit ___ On-call Visit ___ General Patient Visit ___ Spiritual Assessment ___ Family Conference ___ Bereavement ___ Rapid Response ___ Code Blue ___ Other (describe below) Pastoral Care Referral From _x__ Patient ___ Family ___ Nurse ___ Physician ___ Plant Changer ___ Body And Frame Man ___ Other (describe below) Sacrament/Intervention _x__ Active listening ___ Anointing ___ Taoism ___ Bereavement ___ Communion ___ Deepa exploration ___ _x__ Life review _x__ Prayer ___ Reconciliation ___ Sacrament of Sick _x__ Supportive presence ___ Wedding ___ Other (describe below) Pastoral Comments patient is sitting up in chair and reports that he is feeling better; spouse is with pt; spouse reminds this linux system administrator that we had met with sister of spouse was a patient here last year; spouse talks about her grief in loss of sister; pt talks about 'thinking about mother' today; pt identifies mother as someone who inspired him; both are welcoming of a prayer and pastoral care support
--- NOTE | 2018-03-09 13:47 | CASEMGMT ---
Addendum entered by Shikha Mcgrath 03/09/18 13:50: SW let pt and know precert attained and physician will likely discharge pt today. Pt stated, oh good! Both in agreement with plan, pt seems more alert and oriented at this time. MACARIO Flores, PAINT AND TABLE EDGER Original Note: JOANN called [facility], precert attained for pt to go to TCU. SW texted physician to see if he plans to send pt to TCU today. SW will continue to follow. SW did let Paulina in TCU know precert attained and physician may send pt today. MACARIO Flores, PAINT AND TABLE EDGER
[2018-03-09 14:36] LABS: ANTINUCLEAR ANTIBODIES DIRECT Negative (Negative)
--- NOTE | 2018-03-09 14:36 | PCM.TXEXTCAR ---
- Diet 03/06/18 13:38 Diet: Calorie Controlled Is pt able to select menu?: Yes How many daily calories?: 1800 calorie - Wound(s) left arm Wound Type: Skin Tear - Allergies/Procedures Done in Hospital Allergies/Adverse Reactions: Allergies rosuvastatin calcium [From Crestor] Allergy (Verified 03/06/18 08:47) Hives atorvastatin calcium [From Lipitor] Adverse Reaction (Verified 03/06/18 08:47) Pain in joints morphine Adverse Reaction (Verified 03/06/18 08:47) Other LOCALIZED IRRITATION OF VEIN pioglitazone HCl [From Actos] Adverse Reaction (Verified 03/06/18 08:47) Pain in joints Procedures: None - Type of Care/Length of Stay Estimated LOS: Convalescent Care Less Than 30 days Type of Care Needed: Skilled Rehab Potential: Good Prognosis: Good - Additional Orders/Day of Discharge Day of Discharge: 03/09/18 - Dietary and Speech Recommendations Dietitian Recommendations/Changes: Suggest diet change to 2000 calorie/cardiac/2 gm sodium. Continue glucerna shake on medpass as tolerated r/t skin tear. - Follow Up Care Primary Care Physician: Stan Huerta MD [Primary Care Provider] - Please follow up with your Primary Care Physician in: in 3-5 days after DC from SNF
--- NOTE | 2018-03-09 14:38 | PCM.DC.SUM ---
Discharge Date and Diagnosis - Problem List Patient Problems: Active and Suspected Problems (Last Reviewed 03/06/18 @ 13:42 by Tello Iniguez DO) Metabolic encephalopathy (Acute) HARISH (acute kidney injury) (Acute) Debility (Acute) Date of Admission: 03/06/18 Date of Discharge: 03/09/18 - Primary Discharge Diagnosis Active and Suspected Problems (Last Reviewed 03/06/18 @ 13:42 by Tello Iniguez DO) Metabolic encephalopathy (Acute) HARISH (acute kidney injury) (Acute) Debility (Acute) - Secondary Discharge Diagnosis Chronic Problems (Last Reviewed 03/06/18 @ 13:42 by Tello Iniguez DO) History of coronary artery bypass graft (Chronic) Diabetes mellitus, type 2 (Chronic) Diastolic dysfunction (Chronic) Stage I Depression (Chronic) Dementia (Chronic) Hyperlipidemia (Chronic) CAD (coronary artery disease) (Chronic) Hypertension (Chronic) Hospital Course and Treatment Imaging Results: Renal US: FINDINGS: RIGHT KIDNEY: Normal location of the right kidney, which is normal in size. The right kidney measures 9.8 x 5.0 x 5.0 cm. There is a normal cortex of the right kidney. The renal cortex measures 1.4 cm. There is no right renal mass or cyst. There are no right renal calculi. There is no right hydronephrosis. DISTAL RIGHT URETER: There is non-visualization of the distal right ureter. There is no demonstrated right ureterovesical junction calculus. There is a visualized right ureteral jet. LEFT KIDNEY: Normal location of the left kidney, which is normal in size. The left kidney measures 10.0 x 4.6 x 4.9 cm. There is a normal cortex of the left kidney. The renal cortex measures 1.6 cm. There is no left renal mass or cyst. There are no left renal calculi. There is no left hydronephrosis. DISTAL LEFT URETER: There is non-visualization of the distal left ureter. There is no demonstrated left ureterovesical junction calculus. There is a visualized left ureteral jet. BLADDER: The distended urinary bladder has a volume of 143 ml. There is a normal wall thickness of the distended urinary bladder. There is no demonstrated mass within the urinary bladder. There are no demonstrated bladder calculi. Consults: Nephrology Operations: None Procedures: None Summary of Care Provided: HPI: The patient is a 77 year old M who was a week noted on Tuesday. And today vision was much more weak. Additionally, patient was more confused and he is at baseline. Patient was brought to the hospital and was found to have a creatinine of 5.6, with baseline creatinine of 1.59 from January 03. Patient's states that he has not been eating or drinking much during this time as well. Patient is rather apathetic about his symptoms and does not really divulge much in the reasons why he is drinking much. Patient is being admitted for acute kidney injury. Patient did have a CAT scan of his head that showed no acute process for his confusion. Hospital Course: 1. LUE rash/Melena/HARISH that is improving/Right knee gout - He initially presented because he went to his PCP for evaluation of a new skin rash and progressive weakness. About a week prior to admission he fell in the bathroom because his legs gave out. The rash was present prior that. While here his renal function has improved to about 3.7 with IVF. He had only taken 2 advil about 14 days ago, but is on HCTZ at home which was discontinued. His BP has been in the 140's. Both CRP and ESR are elevated and SPEP and UPEP are pending. His uric acid is also elevated and now he had a swollen knee which improved with IV solumedrol. He will be discharged on prednisone 40 mg daily for 7 days and then can likely start allopurinal since his uric acid is 13.4. KARTHIK and other immunological titers are pending. If there is no clear evidence of cause, he would benefit from having one of his lesions biopsied. 2. Dementia and metabolic encephalopathy from renal disease - This has significantly improved since admission. TSH was unremarkable, and folate/B12 were normal. I expect continued improvement as his renal function improves 3. DM2 - This was managed well on SSI and on discharge he is to have both his home medication as well as SSI as he was started on prednisone. Home Medications: Medications to take at Discharge Nitroglycerin [Nitrostat] 0.4 mg SUBLINGUAL Q5M PRN 07/10/13 Vitamin E 400 unit PO DAILY 03/04/16 Amlodipine [Norvasc] 5 mg PO DAILY 01/02/18 Glimepiride [Amaryl] 4 mg PO DAILY 01/02/18 [place]eflore-3/Dha/Epa/Fish Oil [[place] 3 500 Softgel] 1 cap PO DAILY 01/02/18 Simvastatin [Zocor] 40 mg PO QHS 01/02/18 Aspirin 325 mg PO DAILY PRN PRN 03/06/18 Clonidine HCl [Catapres] 0.1 mg PO DAILY 03/06/18 Mupirocin [Bactroban] 1 applic TOPICAL BID 03/06/18 Docusate Sodium [Colace] 100 mg PO BID capsule 03/09/18 Ergocalciferol [Vitamin D] 50,000 unit PO Q7D capsule 03/09/18 Glucerna Shake 120 ml PO 4X/DAY liquid 03/09/18 Heparin Injection (Vial) [Heparin Na] 5,000 unit SC Q8 vial 03/09/18 Insulin Lispro [Humalog KwikPen] See Protocol SQ TIDAC insuln.pen 03/09/18 Magnesium Hydroxide [Milk Of Magnesia] 30 ml PO DAILY PRN PRN udc 03/09/18 Polyethylene Glycol 3350 [Miralax] 17 gm PO DAILY packet 03/09/18 Prednisone 20 mg PO BID #14 tablet 03/09/18 Following Prescrptions Were Given to Patient: Prednisone 20 mg PO BID #14 tablet Primary Care Physician: Stan Huerta MD [Primary Care Provider] - Please follow up with your Primary Care Physician in: in 3-5 days after DC from SNF Disposition: Care Home facility Minutes spent on discharge:: 35 Patient Condition:: Good Medical Necessity - Tobacco Use Smoking Status: Never smoker Tobacco Use: Non-smoker Meaningful Use Info Meaningful Use Diagnoses (Choose all that apply): None applicable Code Visit Inpatient E&M: 91509 Disch Hosp
[2018-03-09 14:40] VITALS: BP 160/64; PULSE 76; RESP 18; TEMP 36.6; O2SAT 98
--- NOTE | 2018-03-09 15:28 | CASEMGMT ---
Pt is discharged. SW faxed all discharge information to TCU, let Paulina in TCU know pt is coming today. No further needs anticipated. MACARIO Flores, WASTE TREATMENT OPERATOR
--- NOTE | 2018-03-09 16:09 | NURSING ---
report called to KEANU Vargas in TCU. pt will be transported to room 11
== END 2018-03-09 16:25 | disposition skilled nursing facility (03) | DRG 682 ==
LOC: ED 09:44 → MS2 11:46
PROVIDERS: Internal Medicine Nephrology; Emergency Provider Emergency Medicine; Family Provider Family Medicine; PCP Family Medicine; Visit Provider Family Medicine
DX: N17.9 Acute kidney failure, unspecified (principal); G93.41 Metabolic encephalopathy; K92.1 Melena; E11.9 Type 2 diabetes mellitus without complications; I25.10 Atherosclerotic heart disease of native coronary artery without angina pectoris; R53.81 Other malaise; Z95.1 Presence of aortocoronary bypass graft; E78.5 Hyperlipidemia, unspecified; I10 Essential (primary) hypertension; R21 Rash and other nonspecific skin eruption; M10.9 Gout, unspecified; F03.90 Unspecified dementia, unspecified severity, without behavioral disturbance, psychotic disturbance, mood disturbance, and anxiety; Z79.84 Long term (current) use of oral hypoglycemic drugs; Z79.899 Other long term (current) drug therapy
CPT/HCPCS: 36415; 70450; 71045; 76770; 80048; 81001; 82306; 82570; 82607; 82746; 82962; 84156; 84165; 84300; 84443; 84550; 85025; 85610; 85652; 86038; 86140; 86225; 86235; 97116; 97162; 97166; 97530; 97802; 99284; J7030; J7040; A4216

== ENCOUNTER 2018-03-09 16:35 | Inpatient (IN) | payer MEDICARE, SELFPAY ==
[2018-03-09 16:51] VITALS: BP 163/78; PULSE 74; PULSE 80; RESP 22; TEMP 36.4; O2SAT 97; BMI 30.4
[2018-03-09] MEDS: predniSONE 20 MG Tablet PO (17:55)
[2018-03-09] MEDS: Docusate Sodium 100 MG Capsule PO (17:55)
--- NOTE | 2018-03-09 20:24 | PCM.HP.STD ---
Problem List (1) Acute on chronic kidney failure Status: Acute (2) Gout Status: Acute (3) Alzheimer's disease Status: Chronic (4) Diabetes mellitus Status: Chronic (5) Metabolic encephalopathy Status: Acute (6) Debility Status: Chronic (7) Depression Status: Chronic (8) Hyperlipidemia Status: Chronic (9) CAD (coronary artery disease) Status: Chronic (10) Hypertension Status: Chronic History of Present Illness Date of Admission: 03/09/18 Chief Complaint: Here for rehabilitation, strengthening, prior to discharge home with spouse. The patient is a 77 year old Male with below past medical history presented to [facility] Emergency Department 03/06/2018 with elevated creatinine. 03/06/2018 CT brain chronic involutional changes. Decreased oral intake x 1 week. Cr increased from 1.8 to 5.3. Bilateral leg weakness. Fall 2 weeks ago. Hemoglobin 11.9, Hematocrit 34.9, Platelet 71. Glucose 213, BUN 114, Cr 5.6. INR 1.2, UA negative. Normal Saline 500cc IV given. 03/06/2018 Admit to Hospital. Hold Glimepiride, Hydrochlorothiazide, Give IV fluids. 03/07/2018 Chest X-ray impaired aeration secondary to poor inspiratory effort. 03/07/2018 Left upper extremity rash, evaluated for vasculitis. 03/07/2018 Renal ultrasound normal. 03/08/2018 Dr. Bhatia recommended IV fluid hydration. Hold diuretics, avoid NSAIDS. 03/09/2018 Gout right knee treated with IV Solu-Medrol, then prednisone. 03/09/2018 Admit to TCU with debility, here for rehabilitation, strengthening, prior to discharge home with spouse. Past Medical History Past Medical History (Chronic Problems): Chronic Problems (Last Reviewed 03/06/18 @ 13:42 by Tello Iniguez DO) Debility (Chronic) Alzheimer's disease (Chronic) Diabetes mellitus (Chronic) History of coronary artery bypass graft (Chronic) Diabetes mellitus, type 2 (Chronic) Diastolic dysfunction (Chronic) Stage I Depression (Chronic) Dementia (Chronic) Hyperlipidemia (Chronic) CAD (coronary artery disease) (Chronic) Hypertension (Chronic) Medical History: Medical History (Last Reviewed 03/06/18 @ 13:42 by Tello Iniguez DO) Dehydration (Acute) E86.0 Hyponatremia (Acute) E87.1 Diabetes mellitus, type 2 (Chronic) E11.9 Diastolic dysfunction (Chronic) I51.9 Stage I Syncope (Acute) R55 Depression (Chronic) F32.9 Dementia (Chronic) F03.90 Hyperlipidemia (Chronic) E78.5 CAD (coronary artery disease) (Chronic) I25.10 Hypertension (Chronic) I10 Allergies rosuvastatin calcium [From Crestor] Allergy (Verified 03/06/18 08:47) Hives atorvastatin calcium [From Lipitor] Adverse Reaction (Verified 03/06/18 08:47) Pain in joints morphine Adverse Reaction (Verified 03/06/18 08:47) Other LOCALIZED IRRITATION OF VEIN pioglitazone HCl [From Actos] Adverse Reaction (Verified 03/06/18 08:47) Pain in joints Home Medications: Ambulatory Orders Medication Instructions Recorded Nitroglycerin [Nitrostat] 0.4 mg SUBLINGUAL Q5M PRN 07/10/13 Vitamin E 400 unit PO DAILY 03/04/16 Amlodipine [Norvasc] 5 mg PO DAILY 01/02/18 Glimepiride [Amaryl] 4 mg PO DAILY 01/02/18 [place]-3/Dha/Epa/Fish Oil [[place] 3 1 cap PO DAILY 01/02/18 500 Softgel] Simvastatin [Zocor] 40 mg PO QHS 01/02/18 Aspirin 325 mg PO DAILY PRN PRN 03/06/18 Clonidine HCl [Catapres] 0.1 mg PO DAILY 03/06/18 Mupirocin [Bactroban] 1 applic TOPICAL BID 03/06/18 Docusate Sodium [Colace] 100 mg PO BID 03/09/18 Ergocalciferol [Vitamin D] 50,000 unit PO Q7D 03/09/18 Glucerna Shake 120 ml PO 4X/DAY 03/09/18 Heparin Injection (Vial) [Heparin 5,000 unit SC Q8 03/09/18 Na] Insulin Lispro [Humalog KwikPen] See Protocol SQ TIDAC 03/09/18 Magnesium Hydroxide [Milk Of 30 ml PO DAILY PRN PRN udc 03/09/18 Magnesia] Polyethylene Glycol 3350 [Miralax] 17 gm PO DAILY 03/09/18 Prednisone 20 mg PO BID 03/09/18 Surgical History: Surgical History (Last Reviewed 03/06/18 @ 13:42 by Tello Iniguez DO) History of coronary artery bypass graft (Chronic) Z95.1 Surgical History: angioplasty - with stents, coronary bypass surgery, - - Surgery on the left leg secondary to traumatic fracture Psychiatric History: No pertinent psych hx Lives: Spouse/ Significant Other Smoking Status: Never smoker Tobacco Use: Non-smoker Alcohol: None Drugs: None - *Family History Maternal Family History: Family History (Last Reviewed 03/06/18 @ 13:43 by Tello Iniguez DO) Father Heart disease History Items: Cancer Paternal Family History: Family History (Last Reviewed 03/06/18 @ 13:43 by Tello Iniguez DO) Father Heart disease History Items: Heart Disease Review of Systems Constitutional: Denies: Chills, Fever, Weight Change HEENT: Denies: Head Aches, Sinus Congestion, Sinus Drainage Cardiovascular: Denies: Chest Pain, Palpitations Respiratory: Denies: Cough, Shortness of breath at rest, Sputum production Gastrointestinal: Denies: Abdominal Pain, Nausea, Vomiting Genitourinary: Denies: Dysuria Musculoskeletal: Denies: Joint Pain, Joint Tenderness Skin: Denies: Rash, Wounds Neurological: Denies: Numbness, Tingling, Focal weakness Psychiatric: Denies: Anxiety, Depression, Homicidal Ideations, Suicidal Ideations Hematologic/ Lymphatic: Denies: Easy Bruising, Easy Bleeding VTE Information - Inpt Only VTE Present on Admission: No VTE Mechan Device Prophylaxis: Knee High RAMON Hose VTE Pharm Prophylaxis ordered?: Yes Patient Problems: Active and Suspected Problems (Last Reviewed 03/06/18 @ 13:42 by Tello Iniguez DO) Acute on chronic kidney failure (Acute) Gout (Acute) - Physical Exam General: Alert, Oriented x3, Cooperative HEENT: Atraumatic, PERRLA, EOMI, Normocephalic Neck: Supple, No JVD, Negative Carotid Bruits Lungs: Clear to auscultation, Normal air movement Cardiovascular: Regular rate, No murmurs Abdomen: Bowel Sounds Present, Soft, Non Tender Extremities: No edema, Capillary Refill Less than 3 Seconds Skin: No rashes, No breakdown Musculoskeletal: No Tenderness to Palpation of Joints or Extremities Neurological: Cranial nerves II-XII grossly intact Psych/Mental Status: Normal Affect, Appropriate Vital Signs Temp Pulse Resp BP Pulse Ox 97.5 F L 80 22 H 163/78 H 97 03/09/18 16:51 08/23/18 16:51 03/09/18 16:51 03/09/18 16:51 03/09/18 16:51 Oxygen Delivery Method Room Air Weight: 98.9 kg Body Mass Index (BMI) 30.4 Finger Stick Blood Glucose 135 Intake and Output for Last 24 Hours 03/07/18 03/08/18 03/09/18 23:59 23:59 23:59 Intake Total 180 / 180 Balance 180 / 180 Assessment/Plan All Active Problems (Last Reviewed 03/06/18 @ 13:42 by Tello Iniguez DO) Metabolic encephalopathy (Acute) HARISH (acute kidney injury) (Acute) Acute on chronic kidney failure (Acute) Gout (Acute) Dehydration (Acute) Hyponatremia (Acute) Syncope (Acute) 77 year old male with below past medical history hospitalized for acute on chronic kidney failure secondary to prerenal azotemia, rule out vasculitis, complicated by underlying Alzheimer's Disease with acute delirium, admitted to TCU with debility, here for rehabilitation, strengthening, prior to discharge home with spouse. Debility - PT/OT. Pain - Tylenol 1000MG Q8H PRN mild pain. Bowel - Miralax 17GM daily, Senna/colace 2 tablets BID, Dulcolax 10MG PO daily PRN, Golytely 1 Liter PO x 1 dose. Pneumonia vaccination - Administer Prevnar 13 and/or Pneumovax 23 as necessary. DVT prophylaxis - Lovenox 30MG SC daily. Hypertension - Amlodipine 5MG daily, Stop Clonidine, Rx Metoprolol tartrate 12.5MG BID. Vitamin D deficiency - D2 50,000 units per week. Diabetes Mellitus II - Glimepiride 4MG daily, add scheduled insulin as needed, he is on steroids. Nutrition - Glucerna 120ML 4x/day. Coronary Artery Disease - Rx Metoprolol 12.5MG BID, NTG 0.4MG SL Q5M PRN, Rx Baby aspirin daily. Gout - Prednisone 20MG daily x 7 days, then stop. Hyperlipidemia - Atorvastatin 40MG QHS. Alzheimer's Disease - Rx Donepezil 5MG QHS.
--- NOTE | 2018-03-09 20:32 | HP.PCM_ITS ---
Problem List (1) Acute on chronic kidney failure Status: Acute (2) Gout Status: Acute (3) Alzheimer's disease Status: Chronic (4) Diabetes mellitus Status: Chronic (5) Metabolic encephalopathy Status: Acute (6) Debility Status: Chronic (7) Depression Status: Chronic (8) Hyperlipidemia Status: Chronic (9) CAD (coronary artery disease) Status: Chronic (10) Hypertension Status: Chronic History of Present Illness Date of Admission: 03/09/18 Chief Complaint: Here for rehabilitation, strengthening, prior to discharge home with spouse. The patient is a 77 year old Male with below past medical history presented to [facility] Emergency Department 03/06/2018 with elevated creatinine. 03/06/2018 CT brain chronic involutional changes. Decreased oral intake x 1 week. Cr increased from 1.8 to 5.3. Bilateral leg weakness. Fall 2 weeks ago. Hemoglobin 11.9, Hematocrit 34.9, Platelet 71. Glucose 213, BUN 114, Cr 5.6. INR 1.2, UA negative. Normal Saline 500cc IV given. 03/06/2018 Admit to Hospital. Hold Glimepiride, Hydrochlorothiazide, Give IV fluids. 03/07/2018 Chest X-ray impaired aeration secondary to poor inspiratory effort. 03/07/2018 Left upper extremity rash, evaluated for vasculitis. 03/07/2018 Renal ultrasound normal. 03/08/2018 Dr. Bhatia recommended IV fluid hydration. Hold diuretics, avoid NSAIDS. 03/09/2018 Gout right knee treated with IV Solu-Medrol, then prednisone. 03/09/2018 Admit to TCU with debility, here for rehabilitation, strengthening, prior to discharge home with spouse. Past Medical History Past Medical History (Chronic Problems): Chronic Problems (Last Reviewed 03/06/18 @ 13:42 by Tello Iniguez DO) Debility (Chronic) Alzheimer's disease (Chronic) Diabetes mellitus (Chronic) History of coronary artery bypass graft (Chronic) Diabetes mellitus, type 2 (Chronic) Diastolic dysfunction (Chronic) Stage I Depression (Chronic) Dementia (Chronic) Hyperlipidemia (Chronic) CAD (coronary artery disease) (Chronic) Hypertension (Chronic) Medical History: Medical History (Last Reviewed 03/06/18 @ 13:42 by Tello Iniguez DO) Dehydration (Acute) E86.0 Hyponatremia (Acute) E87.1 Diabetes mellitus, type 2 (Chronic) E11.9 Diastolic dysfunction (Chronic) I51.9 Stage I Syncope (Acute) R55 Depression (Chronic) F32.9 Dementia (Chronic) F03.90 Hyperlipidemia (Chronic) E78.5 CAD (coronary artery disease) (Chronic) I25.10 Hypertension (Chronic) I10 Allergies rosuvastatin calcium [From Crestor] Allergy (Verified 03/06/18 08:47) Hives atorvastatin calcium [From Lipitor] Adverse Reaction (Verified 03/06/18 08:47) Pain in joints morphine Adverse Reaction (Verified 03/06/18 08:47) Other LOCALIZED IRRITATION OF VEIN pioglitazone HCl [From Actos] Adverse Reaction (Verified 03/06/18 08:47) Pain in joints Home Medications: Ambulatory Orders Medication Instructions Recorded Nitroglycerin [Nitrostat] 0.4 mg SUBLINGUAL Q5M PRN 07/10/13 Vitamin E 400 unit PO DAILY 03/04/16 Amlodipine [Norvasc] 5 mg PO DAILY 01/02/18 Glimepiride [Amaryl] 4 mg PO DAILY 01/02/18 [place]-3/Dha/Epa/Fish Oil [[place] 3 1 cap PO DAILY 01/02/18 500 Softgel] Simvastatin [Zocor] 40 mg PO QHS 01/02/18 Aspirin 325 mg PO DAILY PRN PRN 03/06/18 Clonidine HCl [Catapres] 0.1 mg PO DAILY 03/06/18 Mupirocin [Bactroban] 1 applic TOPICAL BID 03/06/18 Docusate Sodium [Colace] 100 mg PO BID 03/09/18 Ergocalciferol [Vitamin D] 50,000 unit PO Q7D 03/09/18 Glucerna Shake 120 ml PO 4X/DAY 03/09/18 Heparin Injection (Vial) [Heparin 5,000 unit SC Q8 03/09/18 Na] Insulin Lispro [Humalog KwikPen] See Protocol SQ TIDAC 03/09/18 Magnesium Hydroxide [Milk Of 30 ml PO DAILY PRN PRN udc 03/09/18 Magnesia] Polyethylene Glycol 3350 [Miralax] 17 gm PO DAILY 03/09/18 Prednisone 20 mg PO BID 03/09/18 Surgical History: Surgical History (Last Reviewed 03/06/18 @ 13:42 by Tello Iniguez DO) History of coronary artery bypass graft (Chronic) Z95.1 Surgical History: angioplasty - with stents, coronary bypass surgery, - - Surgery on the left leg secondary to traumatic fracture Psychiatric History: No pertinent psych hx Lives: Spouse/ Significant Other Smoking Status: Never smoker Tobacco Use: Non-smoker Alcohol: None Drugs: None - *Family History Maternal Family History: Family History (Last Reviewed 03/06/18 @ 13:43 by Tello Iniguez DO) Father Heart disease History Items: Cancer Paternal Family History: Family History (Last Reviewed 03/06/18 @ 13:43 by Tello Iniguez DO) Father Heart disease History Items: Heart Disease Review of Systems Constitutional: Denies: Chills, Fever, Weight Change HEENT: Denies: Head Aches, Sinus Congestion, Sinus Drainage Cardiovascular: Denies: Chest Pain, Palpitations Respiratory: Denies: Cough, Shortness of breath at rest, Sputum production Gastrointestinal: Denies: Abdominal Pain, Nausea, Vomiting Genitourinary: Denies: Dysuria Musculoskeletal: Denies: Joint Pain, Joint Tenderness Skin: Denies: Rash, Wounds Neurological: Denies: Numbness, Tingling, Focal weakness Psychiatric: Denies: Anxiety, Depression, Homicidal Ideations, Suicidal Ideations Hematologic/ Lymphatic: Denies: Easy Bruising, Easy Bleeding VTE Information - Inpt Only VTE Present on Admission: No VTE Mechan Device Prophylaxis: Knee High RAMON Hose VTE Pharm Prophylaxis ordered?: Yes Patient Problems: Active and Suspected Problems (Last Reviewed 03/06/18 @ 13:42 by Telol Iniguez DO) Acute on chronic kidney failure (Acute) Gout (Acute) - Physical Exam General: Alert, Oriented x3, Cooperative HEENT: Atraumatic, PERRLA, EOMI, Normocephalic Neck: Supple, No JVD, Negative Carotid Bruits Lungs: Clear to auscultation, Normal air movement Cardiovascular: Regular rate, No murmurs Abdomen: Bowel Sounds Present, Soft, Non Tender Extremities: No edema, Capillary Refill Less than 3 Seconds Skin: No rashes, No breakdown Musculoskeletal: No Tenderness to Palpation of Joints or Extremities Neurological: Cranial nerves II-XII grossly intact Psych/Mental Status: Normal Affect, Appropriate Vital Signs Temp Pulse Resp BP Pulse Ox 97.5 F L 80 22 H 163/78 H 97 03/09/18 16:51 08/23/18 16:51 03/09/18 16:51 03/09/18 16:51 03/09/18 16:51 Oxygen Delivery Method Room Air Weight: 98.9 kg Body Mass Index (BMI) 30.4 Finger Stick Blood Glucose 135 Intake and Output for Last 24 Hours 03/07/18 03/08/18 03/09/18 23:59 23:59 23:59 Intake Total 180 / 180 Balance 180 / 180 Assessment/Plan All Active Problems (Last Reviewed 03/06/18 @ 13:42 by Tello Iniguez DO) Metabolic encephalopathy (Acute) HARISH (acute kidney injury) (Acute) Acute on chronic kidney failure (Acute) Gout (Acute) Dehydration (Acute) Hyponatremia (Acute) Syncope (Acute) 77 year old male with below past medical history hospitalized for acute on chronic kidney failure secondary to prerenal azotemia, rule out vasculitis, complicated by underlying Alzheimer's Disease with acute delirium, admitted to TCU with debility, here for rehabilitation, strengthening, prior to discharge home with spouse. * Debility - PT/OT. * Pain - Tylenol 1000MG Q8H PRN mild pain. * Bowel - Miralax 17GM daily, Senna/colace 2 tablets BID, Dulcolax 10MG PO daily PRN, Golytely 1 Liter PO x 1 dose. * Pneumonia vaccination - Administer Prevnar 13 and/or Pneumovax 23 as necessary. * DVT prophylaxis - Lovenox 30MG SC daily. * Hypertension - Amlodipine 5MG daily, Stop Clonidine, Rx Metoprolol tartrate 12.5MG BID. * Vitamin D deficiency - D2 50,000 units per week. * Diabetes Mellitus II - Glimepiride 4MG daily, add scheduled insulin as needed , he is on steroids. * Nutrition - Glucerna 120ML 4x/day. * Coronary Artery Disease - Rx Metoprolol 12.5MG BID, NTG 0.4MG SL Q5M PRN, Rx Baby aspirin daily. * Gout - Prednisone 20MG daily x 7 days, then stop. * Hyperlipidemia - Atorvastatin 40MG QHS. * Alzheimer's Disease - Rx Donepezil 5MG QHS.
[2018-03-09 20:36] LABS: Bedside Glucose 348 mg/dL (70-110)
[2018-03-09] MEDS: Glucerna Shake 120 ML LIQUID PO (21:49)
[2018-03-09] MEDS: Donepezil HCl 5 MG Tablet PO (21:49)
--- NOTE | 2018-03-09 21:51 | NURSING ---
Pt unsure of a code status. Would like for staffing to ask pts in the AM.
[2018-03-09] MEDS: Electrolyte Solution/Peg's 4000 ML 1000 ML PO (22:30)
[2018-03-10] MEDS: Enoxaparin 30 MG/0.3 ML Syringe SC (05:29)
[2018-03-10 05:30] VITALS: BP 167/72; PULSE 87
[2018-03-10] MEDS: Senna/Docusate Sodium 1 Tablet 2 TABLET PO ×2 (05:30→18:09)
[2018-03-10] MEDS: Vitamin E 400 UNITS Capsule PO (05:30)
[2018-03-10] MEDS: Metoprolol Tartrate 25 MG Tablet 12.5 MG PO ×2 (05:30→18:09)
[2018-03-10] MEDS: amLODIPine 5 MG Tablet PO (05:30)
[2018-03-10] MEDS: Polyethylene Glycol 3350 17 GM PACKET PO (05:32)
[2018-03-10] MEDS: Glucerna Shake 120 ML LIQUID PO ×4 (05:34→20:19)
[2018-03-10 06:36] LABS: Bedside Glucose 221 mg/dL (70-110)
[2018-03-10 06:39] LABS: Absolute Neutrophil Count 14.4 X10^3/uL (2.0-7.7); Basophil# 0.01 X10^3/uL; Basophil% 0.1 % (0-1); Hematocrit 24.6 % (40-54); Hemoglobin 8.3 g/dl (13.0-16.5); Lymphocyte % 7.7 % (19-41); Mean Corp Hgb Conc 33.7 g/gl (32-36); Mean Platelet Vol. 11.2 fl (6.2-12.0); Monocyte# 1.03 X10^3/uL; Monocyte% 6.1 % (0-10); Neutrophil # 14.41 X10^3/uL (2.7-7.7); Neutrophil % 85.4 % (47-70); Platelet Count 186 K/mm3 (150-450); RBC Distribution Width CV 15.6 % (11.6-14.6); RBC Distribution Width SD 48.3 fl (35.1-43.9); Red Blood Count 2.86 M/mm3 (4.6-6.2); White Blood Count 16.9 K/mm3 (4.4-11.0)
[2018-03-10 06:40] LABS: POSITIVE COUNT NO; POSITIVE DIFFERENTIAL NO; POSITIVE MORPHOLOGY NO
[2018-03-10] MEDS: Glimepiride 4 MG Tablet PO (06:53)
[2018-03-10 07:02] LABS: Anion Gap 13 (5-15); BUN 101 mg/dL (7-18); BUN/Creat Ratio 28.1 RATIO (10-20); Calcium,Total 8.1 mg/dL (8.5-10.1); Chloride 114 mmol/L (98-107); EST Glomerular Filtration Rate 18 mL/min (>60); Est Glom Filt Rate - Afr Amer 21 mL/min (>60); Estimated Creatinine Clearance 18.59 ml/min; Glucose 224 mg/dL (74-106); Potassium 4.6 mmol/L (3.5-5.1); Sodium Level 145 mmol/L (136-145)
[2018-03-10 07:06] LABS: Bedside Glucose 348 mg/dL (70-110)
[2018-03-10] MEDS: Aspirin 81 MG TAB.CHEW PO (08:40)
[2018-03-10] MEDS: predniSONE 20 MG Tablet PO (08:40)
[2018-03-10 09:46] LABS: 24HR. UA Prot. Total Volume 550 mL
[2018-03-10] MEDS: Tuberculin,Purif.prot.deriv. 50 TU/ML Vial 5 ML ID (09:46)
[2018-03-10 11:26] LABS: Bedside Glucose 250 mg/dL (70-110)
--- NOTE | 2018-03-10 11:49 | CASEMGMT ---
Insurance Clinical information sent. Pending continued stay approval at this time. Auth# to be obtained when approved. Giuliana WALSH, AUTOMOTIVE PARTS MANAGER
--- NOTE | 2018-03-10 14:11 | CHAPLAIN ---
Type of Pastoral Visit ___ Initial Visit _x__ Follow-up Visit ___ On-call Visit ___ General Patient Visit ___ Spiritual Assessment ___ Family Conference ___ Bereavement ___ Rapid Response ___ Code Blue ___ Other (describe below) Pastoral Care Referral From _x__ Patient _x__ Family ___ Nurse ___ Physician ___ Bullet Lubricant Mixer ___ Furniture Finisher Helper ___ Other (describe below) Sacrament/Intervention _x__ Active listening ___ Anointing ___ Sikhism ___ Bereavement ___ Communion ___ Deepa exploration ___ ___ Life review _x__ Prayer ___ Reconciliation ___ Sacrament of Sick _x__ Supportive presence ___ Wedding ___ Other (describe below) Pastoral Comments patient had requested a spiritual care visit while admitted to [facility]; follow up with patient to see how he was doing; spouse is with him; pt is welcoming of visit and prayer
[2018-03-10 15:28] VITALS: BP 162/75; PULSE 67; RESP 18; TEMP 37.1; O2SAT 96
[2018-03-10 16:50] LABS: Bedside Glucose 263 mg/dL (70-110)
[2018-03-10] MEDS: Insulin Lispro 100 UNIT/ML INSULN.PEN 7 UNIT SC (18:07)
[2018-03-10 18:09] VITALS: BP 162/75; PULSE 67
[2018-03-10] MEDS: Donepezil HCl 5 MG Tablet PO (20:19)
[2018-03-10 20:20] VITALS: PULSE 66; O2SAT 98
[2018-03-10 20:51] LABS: Bedside Glucose 221 mg/dL (70-110)
--- NOTE | 2018-03-11 05:20 | NURSING ---
Addendum entered by Corine Galeas 03/11/18 09:27: Dr Burgos notified of below, new order for xanax PRN. Pt sitting at nurses station at this time in recliner chair, legs elevated. Original Note: Pt's personal alarm was sounding, this RN entered room to find pt sitting at edge of bed. After offering pt assistance, pt responded loudly Get the hell away from me!!, prompting 3 other staff members into the room. RN reminded pt that I am here to assist him, and offered to help him to restroom. Also reoriented pt to place. Pt proceeding to get up by self and ambulating to br. Once in br pt picked up walker in a manner to swing at this RN. Pt settled onto toilet with assistance of JUAN De Leon. Pt used restroom, and was assisted back to bed. 1:1 given to pt, resting at this time, pleasant upon exiting room.
[2018-03-11] MEDS: Glucerna Shake 120 ML LIQUID PO ×4 (06:44→21:31)
[2018-03-11 06:45] VITALS: BP 167/76; PULSE 69
[2018-03-11] MEDS: Glimepiride 4 MG Tablet PO (06:45)
[2018-03-11] MEDS: Enoxaparin 30 MG/0.3 ML Syringe SC (06:45)
[2018-03-11] MEDS: Metoprolol Tartrate 25 MG Tablet 12.5 MG PO ×2 (06:45→18:21)
[2018-03-11] MEDS: amLODIPine 5 MG Tablet PO (06:46)
[2018-03-11] MEDS: Senna/Docusate Sodium 1 Tablet 2 TABLET PO ×2 (06:46→18:22)
[2018-03-11] MEDS: Vitamin E 400 UNITS Capsule PO (06:46)
[2018-03-11 06:56] LABS: Bedside Glucose 125 mg/dL (70-110)
[2018-03-11] MEDS: Aspirin 81 MG TAB.CHEW PO (08:09)
[2018-03-11] MEDS: predniSONE 20 MG Tablet PO (08:09)
[2018-03-11] MEDS: Insulin Lispro 100 UNIT/ML INSULN.PEN 7 UNIT SC ×3 (08:09→18:18)
[2018-03-11] MEDS: Iron Polysaccharide Complex 150 MG CAPSULE PO (08:09)
[2018-03-11 09:08] VITALS: PULSE 64; O2SAT 96
[2018-03-11 11:20] LABS: Bedside Glucose 122 mg/dL (70-110)
[2018-03-11 15:25] VITALS: BP 159/71; PULSE 68; RESP 16; TEMP 37.1; O2SAT 96
[2018-03-11] MEDS: ALPRAZolam 0.5 MG Tablet PO (16:37)
[2018-03-11 17:00] LABS: Bedside Glucose 130 mg/dL (70-110)
[2018-03-11 18:21] VITALS: BP 159/71; PULSE 68
[2018-03-11 20:55] LABS: Bedside Glucose 134 mg/dL (70-110)
[2018-03-11] MEDS: Donepezil HCl 5 MG Tablet PO (21:29)
--- NOTE | 2018-03-11 21:30 | NURSING ---
Pt requesting to hold peaches from brother. Pt placed peaches in bag between legs underneath gown. Pt's legs lowered in reclined, one out of four peaches smashed when legs lowered.
--- NOTE | 2018-03-11 22:20 | NURSING ---
Pt very agitated and restless. Walked around the unit several times with staff and redirected numerous times. Interventions not effective. Dr. Burgos updated. New order entered.
[2018-03-11] MEDS: ALPRAZolam 0.5 MG Tablet 2 MG PO (22:25)
[2018-03-12 06:55] LABS: Bedside Glucose 60 mg/dL (70-110)
--- NOTE | 2018-03-12 07:00 | NURSING ---
Pt BS 60 this AM. OJ and cookied provided. Recheck 15min later 76.
[2018-03-12 07:01] LABS: Bedside Glucose 76 mg/dL (70-110)
[2018-03-12 09:06] VITALS: BP 166/71; PULSE 70
[2018-03-12] MEDS: Vitamin E 400 UNITS Capsule PO (09:06)
[2018-03-12] MEDS: Metoprolol Tartrate 25 MG Tablet 12.5 MG PO ×2 (09:06→18:09)
[2018-03-12] MEDS: Glimepiride 4 MG Tablet PO (09:08)
[2018-03-12] MEDS: amLODIPine 5 MG Tablet PO (09:08)
[2018-03-12] MEDS: Senna/Docusate Sodium 1 Tablet 2 TABLET PO ×2 (09:09→18:09)
[2018-03-12] MEDS: Enoxaparin 30 MG/0.3 ML Syringe SC (09:11)
[2018-03-12] MEDS: Aspirin 81 MG TAB.CHEW PO (09:21)
[2018-03-12] MEDS: predniSONE 20 MG Tablet PO (09:21)
[2018-03-12] MEDS: Iron Polysaccharide Complex 150 MG CAPSULE PO (09:21)
[2018-03-12 11:26] LABS: Bedside Glucose 202 mg/dL (70-110)
[2018-03-12] MEDS: Glucerna Shake 120 ML LIQUID PO ×3 (12:19→20:35)
--- NOTE | 2018-03-12 13:05 | NURSING ---
Addendum entered by Corine Galeas 03/12/18 15:41: dr Burgos notified of urine & family concerned regarding dose of xanax too much. new order to decrease to 1 mg PRN Original Note: urine obtained via st cath per order. Pt tolerated well, pt noted to be very sleepy today. Family concerned d/t the xanax being given, pt never had this medication before. Will update Dr Burgos.
[2018-03-12 13:10] LABS: Bacteria 0 SEEN /hpf (None Seen); Mucous, Urine 0 SEEN /hpf (<or=2+); Red Blood Cells-Urine 0 SEEN /hpf (0-5); Squamous Epithelial Cells - UA 0 SEEN /hpf (0-5); White Blood Cells 0 SEEN /hpf (0-5)
[2018-03-12 13:13] LABS: Color, Urine Yellow (Yellow); Glucose, Dipstick Normal (Normal); Ketone-Dipstick Negative (Negative); Leukocyte Esterase-Dipstick Negative /ul (Negative); Nitrite-Dipstick Negative (Negative); Occult Blood-Urine 50 /ul (Negative); Protein-Dipstick 500 mg/dl (Negative); Specific Gravity, Urine 1.015 (1.002-1.030); Urine Bilirubin Dipstick Negative (Negative); Urine Clarity Clear (Clear); Urine Urobilinogen Normal (Normal)
[2018-03-12 13:23] LABS: Amorphous Sediment 2+
[2018-03-12 15:10] VITALS: BP 170/70; PULSE 60; RESP 16; TEMP 36.6; O2SAT 95
[2018-03-12 17:06] LABS: Bedside Glucose 183 mg/dL (70-110)
[2018-03-12 18:09] VITALS: BP 170/70; PULSE 60
[2018-03-12] MEDS: Menthol/Lanolin/Calamine/Znox 113 GM Tube 1 APPLIC TOPICAL (20:35)
[2018-03-12] MEDS: Donepezil HCl 5 MG Tablet PO (20:35)
[2018-03-12 21:01] LABS: Bedside Glucose 210 mg/dL (70-110)
[2018-03-13 05:20] VITALS: BP 164/81; PULSE 60
[2018-03-13] MEDS: Glucerna Shake 120 ML LIQUID PO ×4 (05:20→20:21)
[2018-03-13] MEDS: Enoxaparin 30 MG/0.3 ML Syringe SC (05:20)
[2018-03-13] MEDS: Vitamin E 400 UNITS Capsule PO (05:20)
[2018-03-13] MEDS: Metoprolol Tartrate 25 MG Tablet 12.5 MG PO ×2 (05:20→17:55)
[2018-03-13] MEDS: Senna/Docusate Sodium 1 Tablet 2 TABLET PO ×2 (05:21→17:55)
[2018-03-13] MEDS: Glimepiride 4 MG Tablet PO (05:21)
[2018-03-13] MEDS: amLODIPine 5 MG Tablet PO (05:21)
[2018-03-13] MEDS: Polyethylene Glycol 3350 17 GM PACKET PO (05:21)
[2018-03-13] MEDS: Menthol/Lanolin/Calamine/Znox 113 GM Tube 1 APPLIC TOPICAL ×2 (05:23→20:25)
[2018-03-13 06:47] LABS: Bedside Glucose 88 mg/dL (70-110)
[2018-03-13] MEDS: Iron Polysaccharide Complex 150 MG CAPSULE PO (08:29)
[2018-03-13] MEDS: predniSONE 20 MG Tablet PO (08:29)
[2018-03-13] MEDS: Aspirin 81 MG TAB.CHEW PO (08:29)
[2018-03-13 11:06] LABS: Bedside Glucose 94 mg/dL (70-110)
--- NOTE | 2018-03-13 14:04 | NURSING ---
PT GETTING A LITTLE AGITATED, REFUSED THERAPY, THIS NURSE ASKED THERAPY TO COME BACK IN A HOUR AND ASK AGAIN. EXPLAINED TO PT AND THAT IF PT CONTINUES TO REFUSE THERAPY, INSURANCE MAY CUT HIM. UNDERSTOOD. OFFERED XANAX TO PT, PT REFUSED. REPORTED TO KEANU BALLARD
[2018-03-13 14:10] VITALS: BP 169/83; PULSE 61; RESP 18; O2SAT 96
--- NOTE | 2018-03-13 14:32 | CASEMGMT ---
Insurance Continued stay approved with next update due on 04/02/18. Auth#[id number] Giuliana WALSH, NAIL SETTER
[2018-03-13 14:46] LABS: Bedside Glucose 163 mg/dL (70-110)
[2018-03-13 14:47] VITALS: BP 169/83; PULSE 61
[2018-03-13 14:55] VITALS: BP 165/70; PULSE 64; RESP 18; O2SAT 94
[2018-03-13] MEDS: ALPRAZolam 0.5 MG Tablet 1 MG PO (15:58)
[2018-03-13 16:00] VITALS: O2SAT 96
--- NOTE | 2018-03-13 16:29 | NURSING ---
1400 PT CALLED OUT TO SAY HE WASNT FEELING GOOD. PT STATED HIS CHEST HURT AND WAS HAVING A HARD TIME BREATHING. VITALS AND BLOOD SUGAR DONE. CALLED KEANU BALLARD TO ROOM. THIS NURSE GAVE PRN NITRO.
--- NOTE | 2018-03-13 16:34 | NURSING ---
AT 1455, VITALS DONE, PT STATED HE FELT A LITTLE BETTER BUT STILL FELT SOME PRESSURE IN CHEST. KEANU BALLARD ORDERED A EKG.
--- NOTE | 2018-03-13 16:37 | NURSING ---
PT CALLED OUT AND STATED HE WASNT FEELING GOOD AGAIN. PULLED PT UP IN BED. PT STATED THAT FELT BETTER BUT WAS REALLY NERVOUS AND FELT SOB. PT STATED NO CHEST PAIN. PRN XANAX GIVEN. KEANU BALLARD AWARE
[2018-03-13 17:06] LABS: Bedside Glucose 158 mg/dL (70-110)
[2018-03-13 17:55] VITALS: BP 165/70; PULSE 64
[2018-03-13] MEDS: Donepezil HCl 5 MG Tablet PO (20:22)
[2018-03-13] MEDS: MELATONIN 10 MG TABLET PO (20:23)
[2018-03-13 21:11] LABS: Bedside Glucose 134 mg/dL (70-110)
[2018-03-14] MEDS: Glucerna Shake 120 ML LIQUID PO ×3 (05:48→16:53)
--- NOTE | 2018-03-14 05:58 | NURSING ---
Addendum entered by Lisa Ventura 03/14/18 06:12: aware of new orders. Original Note: Patient's BP 200/82 P 65 and regular. O2 96 on RA R 18. Patient lung sounds with expiratory wheezes. Dr. Burgos notified. Orders given for chest xray.
[2018-03-14 06:03] VITALS: BP 200/82; PULSE 65
[2018-03-14] MEDS: Senna/Docusate Sodium 1 Tablet 2 TABLET PO ×2 (06:03→16:53)
[2018-03-14] MEDS: Metoprolol Tartrate 25 MG Tablet 12.5 MG PO ×2 (06:03→16:54)
[2018-03-14] MEDS: amLODIPine 5 MG Tablet PO (06:03)
[2018-03-14] MEDS: Polyethylene Glycol 3350 17 GM PACKET PO (06:03)
[2018-03-14] MEDS: Glimepiride 4 MG Tablet PO (06:04)
[2018-03-14] MEDS: Vitamin E 400 UNITS Capsule PO (06:04)
[2018-03-14] MEDS: Enoxaparin 30 MG/0.3 ML Syringe SC (06:07)
[2018-03-14] MEDS: Menthol/Lanolin/Calamine/Znox 113 GM Tube 1 APPLIC TOPICAL (06:08)
[2018-03-14 06:51] LABS: Bedside Glucose 90 mg/dL (70-110)
[2018-03-14 06:51] LABS: Bedside Glucose 63 mg/dL (70-110)
[2018-03-14] MEDS: Acetaminophen 500 MG Tablet 1000 MG PO (08:30)
[2018-03-14] MEDS: predniSONE 20 MG Tablet PO (08:33)
[2018-03-14] MEDS: Iron Polysaccharide Complex 150 MG CAPSULE PO (08:33)
[2018-03-14] MEDS: Aspirin 81 MG TAB.CHEW PO (08:33)
[2018-03-14 11:51] LABS: Bedside Glucose 106 mg/dL (70-110)
--- NOTE | 2018-03-14 12:26 | PCM.PN.RX ---
Progress Note - Pharmacy Subjective: TCU Admission Objective: Allergies rosuvastatin calcium [From Crestor] Allergy (Verified 03/06/18 08:47) Hives atorvastatin calcium [From Lipitor] Adverse Reaction (Verified 03/06/18 08:47) Pain in joints morphine Adverse Reaction (Verified 03/06/18 08:47) Other LOCALIZED IRRITATION OF VEIN pioglitazone HCl [From Actos] Adverse Reaction (Verified 03/06/18 08:47) Pain in joints Current Medications Generic Name Dose Route Start Last Admin Trade Name Freq PRN Reason Stop Dose Admin Acetaminophen 1,000 mg 03/09/18 20:52 03/14/18 08:30 Tylenol PO 1,000 mg Q8H PRN PRN Administration MILD PAIN (1-3/10) Alprazolam 1 mg 03/12/18 15:40 03/13/18 15:58 Xanax PO 1 mg Q6H PRN PRN Administration restless/agitation Amlodipine Besylate 5 mg 03/10/18 06:00 03/14/18 06:03 Norvasc PO 5 mg DAILY DESI Administration Aspirin 81 mg 03/10/18 08:00 03/14/18 08:33 Aspirin, Baby PO 81 mg DAILY@0800 DESI Administration Bisacodyl 10 mg 03/09/18 20:53 Dulcolax PO DAILY PRN Constipation Calamine/Phenol 1 applic 03/12/18 22:00 03/14/18 06:08 Calmoseptine Ointment TOPICAL 1 applicatio 0600,2200 DESI Administration Protocol Dextrose 0 gm 03/12/18 06:54 D50w Syringe IV X1 PRN Hypoglycemia Protocol Donepezil HCl 5 mg 03/09/18 22:00 03/13/18 20:22 Aricept PO 5 mg QHS DESI Administration Enoxaparin Sodium 30 mg 03/10/18 06:00 03/14/18 06:07 Lovenox SC 30 mg DAILY@0600 [facility] Administration Ergocalciferol 50,000 unit 03/16/18 17:15 Vitamin D PO Q7D [facility] TO [facility] Glimepiride 4 mg 03/10/18 06:00 03/14/18 06:04 Amaryl PO 4 mg DAILY DESI Administration Glucagon 1 mg 03/12/18 06:54 IM .X1 PRN Hypoglycemia Melatonin 10 mg 03/12/18 22:00 03/13/18 20:23 Melatonin PO 10 mg QHS DESI Administration Metoprolol Tartrate 12.5 mg 03/10/18 06:00 03/14/18 06:03 Lopressor (Beta Bryce) PO 12.5 mg BID DESI Administration Nitroglycerin 0.4 mg 03/09/18 17:17 03/13/18 14:47 Nitrostat SUBLINGUAL 0.4 mg Q5M PRN Administration Chest Pain Nutritional Formula (Lactose Free) 120 ml 03/09/18 22:00 03/14/18 11:47 Glucerna Shake PO 120 ml 4X/DAY DESI Administration Polyethylene Glycol 17 gm 03/10/18 06:00 03/14/18 06:03 Miralax PO 17 gm DAILY DESI Administration Polysaccharide Iron Complex 150 mg 03/11/18 08:00 03/14/18 08:33 Ferrex 150 PO 150 mg DAILYCM DESI Administration Prednisone 20 mg 03/10/18 08:00 03/14/18 08:33 PO 03/16/18 08:01 20 mg DAILYCM DESI Administration Senna/Docusate Sodium 2 tablet 03/10/18 06:00 03/14/18 06:03 Senokot-S, Leila-Colace PO 2 tablet BID DESI Administration Simvastatin 40 mg 03/10/18 22:00 03/13/18 20:23 Zocor PO 40 mg QHS DESI Administration Tuberculin PPD 5 tu 03/17/18 10:00 Tubersol, Aplisol, Ppd ID 03/17/18 10:01 X1 ONE Vitamin E 400 units 03/10/18 06:00 03/14/18 06:04 Vitamin E PO 400 units DAILY DESI Administration Problem List (Last Reviewed 03/06/18 @ 13:42 by Tello Iniguez DO) Acute on chronic kidney failure (Acute) Gout (Acute) Alzheimer's disease (Chronic) Diabetes mellitus (Chronic) Vital Signs Temp Pulse Resp BP Pulse Ox 97.9 F 65 18 200/82 H 96 03/12/18 15:10 03/14/18 06:03 03/13/18 14:55 03/14/18 06:03 03/13/18 16:00 Oxygen Delivery Method Room Air Weight: 97.607 kg Body Mass Index (BMI) 30.4 Finger Stick Blood Glucose 135 Sodium 145 mmol/L (136-145) 03/10/18 05:15 Potassium 4.6 mmol/L (3.5-5.1) 03/10/18 05:15 Chloride 114 mmol/L (98-107) H 03/10/18 05:15 Carbon Dioxide 18.0 mmol/L (21.0-32.0) L 03/10/18 05:15 Anion Gap 13 (5-15) 03/10/18 05:15 BUN 101 mg/dL (7-18) H* 03/10/18 05:15 Creatinine 3.60 mg/dL (0.70-1.30) H 03/10/18 05:15 Est GFR (MDRD) Af Amer 21 mL/min (>60) L 03/10/18 05:15 Est GFR (MDRD) Non-Af 18 mL/min (>60) L 03/10/18 05:15 BUN/Creatinine Ratio 28.1 RATIO (10-20) H 03/10/18 05:15 Glucose 224 mg/dL (74-106) H 03/10/18 05:15 Assessment/Plan: 1) Pain APAP for mild pain. Continue to monitor prn medication use, daily pain scores. 2) HTN/CAD Amlodipine, ASA, simvastatin, metoprolol, prn ntg. Continue to monitor BP/HR, lipids, prn medication use, for chest pain. 3) DM2 Glimepiride daily. Continue to monitor renal function, BGT, s/s hyper/hypoglycemia. 4) Gout Prednisone daily x1 week. Continue to monitor for s/s gout. 5) Sleep Melatonin at HS. Continue to monitor for insomnia. 6) Nutrition Fe, Glucerna, D, E. Continue to monitor clinically. 7) DVT PPx Enoxaparin daily. Continue to monitor s/s bleeding/clot. 8) Alzheimer's Donepezil at HS. Continue to monitor clinically. Psychotropic Medications: 9) Restlessness/Agitation/Anxiety Alprazolam as needed. Continue to monitor for prn medication use. Unnecessary Medications: None Bowel Regimen: 10) Senna/s, PEG, prn bisacodyl. Continue to monitor prn medication use, for constipation/diarrhea. Date of Note:: 03/14/18 - Provider Comments Provider responsibility: Provider responsible to enter orders to implement recommendations
--- NOTE | 2018-03-14 12:36 | PHA.CONS_ITS ---
Progress Note - Pharmacy Subjective: TCU Admission Objective: Allergies rosuvastatin calcium [From Crestor] Allergy (Verified 03/06/18 08:47) Hives atorvastatin calcium [From Lipitor] Adverse Reaction (Verified 03/06/18 08:47) Pain in joints morphine Adverse Reaction (Verified 03/06/18 08:47) Other LOCALIZED IRRITATION OF VEIN pioglitazone HCl [From Actos] Adverse Reaction (Verified 03/06/18 08:47) Pain in joints Current Medications Generic Name Dose Route Start Last Admin Trade Name Freq PRN Reason Stop Dose Admin Acetaminophen 1,000 mg 03/09/18 20:52 03/14/18 08:30 Tylenol PO 1,000 mg Q8H PRN PRN Administration MILD PAIN (1-3/10) Alprazolam 1 mg 03/12/18 15:40 03/13/18 15:58 Xanax PO 1 mg Q6H PRN PRN Administration restless/agitation Amlodipine Besylate 5 mg 03/10/18 06:00 03/14/18 06:03 Norvasc PO 5 mg DAILY DESI Administration Aspirin 81 mg 03/10/18 08:00 03/14/18 08:33 Aspirin, Baby PO 81 mg DAILY@0800 DESI Administration Bisacodyl 10 mg 03/09/18 20:53 Dulcolax PO DAILY PRN Constipation Calamine/Phenol 1 applic 03/12/18 22:00 03/14/18 06:08 Calmoseptine Ointment TOPICAL 1 applicatio 0600,2200 DESI Administration Protocol Dextrose 0 gm 03/12/18 06:54 D50w Syringe IV X1 PRN Hypoglycemia Protocol Donepezil HCl 5 mg 03/09/18 22:00 03/13/18 20:22 Aricept PO 5 mg QHS DESI Administration Enoxaparin Sodium 30 mg 03/10/18 06:00 03/14/18 06:07 Lovenox SC 30 mg DAILY@0600 [facility] Administration Ergocalciferol 50,000 unit 03/16/18 17:15 Vitamin D PO Q7D [facility] Glimepiride 4 mg 03/10/18 06:00 03/14/18 06:04 Amaryl PO 4 mg DAILY DESI Administration Glucagon 1 mg 03/12/18 06:54 IM .X1 PRN Hypoglycemia Melatonin 10 mg 03/12/18 22:00 03/13/18 20:23 Melatonin PO 10 mg QHS DESI Administration Metoprolol Tartrate 12.5 mg 03/10/18 06:00 03/14/18 06:03 Lopressor (Beta Bryce) PO 12.5 mg BID DESI Administration Nitroglycerin 0.4 mg 03/09/18 17:17 03/13/18 14:47 Nitrostat SUBLINGUAL 0.4 mg Q5M PRN Administration Chest Pain Nutritional Formula (Lactose Free) 120 ml 03/09/18 22:00 03/14/18 11:47 Glucerna Shake PO 120 ml 4X/DAY DESI Administration Polyethylene Glycol 17 gm 03/10/18 06:00 03/14/18 06:03 Miralax PO 17 gm DAILY DESI Administration Polysaccharide Iron Complex 150 mg 03/11/18 08:00 03/14/18 08:33 Ferrex 150 PO 150 mg DAILYCM DESI Administration Prednisone 20 mg 03/10/18 08:00 03/14/18 08:33 PO 03/16/18 08:01 20 mg DAILYCM DESI Administration Senna/Docusate Sodium 2 tablet 03/10/18 06:00 03/14/18 06:03 Senokot-S, Leila-Colace PO 2 tablet BID DESI Administration Simvastatin 40 mg 03/10/18 22:00 03/13/18 20:23 Zocor PO 40 mg QHS DESI Administration Tuberculin PPD 5 tu 03/17/18 10:00 Tubersol, Aplisol, Ppd ID 03/17/18 10:01 X1 ONE Vitamin E 400 units 03/10/18 06:00 03/14/18 06:04 Vitamin E PO 400 units DAILY DESI Administration Problem List (Last Reviewed 03/06/18 @ 13:42 by Tello Iniguez DO) Acute on chronic kidney failure (Acute) Gout (Acute) Alzheimer's disease (Chronic) Diabetes mellitus (Chronic) Vital Signs Temp Pulse Resp BP Pulse Ox 97.9 F 65 18 200/82 H 96 03/12/18 15:10 03/14/18 06:03 03/13/18 14:55 03/14/18 06:03 03/13/18 16:00 Oxygen Delivery Method Room Air Weight: 97.607 kg Body Mass Index (BMI) 30.4 Finger Stick Blood Glucose 135 Sodium 145 mmol/L (136-145) 03/10/18 05:15 Potassium 4.6 mmol/L (3.5-5.1) 03/10/18 05:15 Chloride 114 mmol/L (98-107) H 03/10/18 05:15 Carbon Dioxide 18.0 mmol/L (21.0-32.0) L 03/10/18 05:15 Anion Gap 13 (5-15) 03/10/18 05:15 BUN 101 mg/dL (7-18) H* 03/10/18 05:15 Creatinine 3.60 mg/dL (0.70-1.30) H 03/10/18 05:15 Est GFR (MDRD) Af Amer 21 mL/min (>60) L 03/10/18 05:15 Est GFR (MDRD) Non-Af 18 mL/min (>60) L 03/10/18 05:15 BUN/Creatinine Ratio 28.1 RATIO (10-20) H 03/10/18 05:15 Glucose 224 mg/dL (74-106) H 03/10/18 05:15 Assessment/Plan: 1) Pain APAP for mild pain. Continue to monitor prn medication use, daily pain scores. 2) HTN/CAD Amlodipine, ASA, simvastatin, metoprolol, prn ntg. Continue to monitor BP/HR , lipids, prn medication use, for chest pain. 3) DM2 Glimepiride daily. Continue to monitor renal function, BGT, s/s hyper/ hypoglycemia. 4) Gout Prednisone daily x1 week. Continue to monitor for s/s gout. 5) Sleep Melatonin at HS. Continue to monitor for insomnia. 6) Nutrition Fe, Glucerna, D, E. Continue to monitor clinically. 7) DVT PPx Enoxaparin daily. Continue to monitor s/s bleeding/clot. 8) Alzheimer's Donepezil at HS. Continue to monitor clinically. Psychotropic Medications: 9) Restlessness/Agitation/Anxiety Alprazolam as needed. Continue to monitor for prn medication use. Unnecessary Medications: None Bowel Regimen: 10) Senna/s, PEG, prn bisacodyl. Continue to monitor prn medication use, for constipation/diarrhea. Date of Note:: 03/14/18 - Provider Comments Provider responsibility: Provider responsible to enter orders to implement recommendations
[2018-03-14 15:00] VITALS: PULSE 66; RESP 24; O2SAT 97
[2018-03-14] MEDS: ALPRAZolam 0.5 MG Tablet 1 MG PO (15:18)
[2018-03-14 16:00] VITALS: BP 194/87; PULSE 70; RESP 24; TEMP 36.5; O2SAT 93
[2018-03-14 16:50] LABS: Bedside Glucose 273 mg/dL (70-110)
[2018-03-14 16:54] VITALS: BP 200/90; PULSE 64
[2018-03-14 16:57] VITALS: BP 200/90; PULSE 64
[2018-03-14 18:21] VITALS: BP 191/91; PULSE 68
--- NOTE | 2018-03-14 20:24 | NURSING ---
Dr. Burgos updated on pt swinging at staff and being resistive to care. Orders entered.
[2018-03-14] MEDS: LORazepam 2 MG/ML Syringe IM (20:31)
--- NOTE | 2018-03-14 20:42 | NURSING ---
Pt was sitting at nurses station, folding towels to keep busy/distracted after family left. Pt was pleasant, talkative to staff. When finished folding towels, they were unfolded and given back to him, staff thanked him for help. He suddenly became agitated and pushed them onto the floor. This nurse approached and said would you like to help me with my laundry I have loads of it! and pt yelled 'no!' and swung at this nurse. Because pt was sitting in recliner chair and this nurse was standing, pt nearly stuck abdomen with arm and closed fist. Surprised, this nurse said woah Marshal be careful I'm and he responded I don't care shut up and raised his arm again as though he was going to swing. Began trying to stand up from chair, alarm sounding. This nurse notified Shona Mae RN and dinkey operator Ofelia and Anna who were all helping another pt. Quantitative Associate came to desk and tried to distract or at least monitor pt and keep him safe. Agitated, he reached out and grabbed Ofelia by the left hand and forcefully bent thumb of left hand completely back, requiring the assist of two other staff members to release hand. At this time Elroy RN was calling Dr and receiving orders. Pt continued to try and fight staff, stand up, push chair back, etc and security was called by this nurse. medical assistant prn Davonte immediately on the unit and has since been standing by pt, monitoring and keeping pt as well as staff safe by acting as buffer. Approx 30 minutes after behaviors started, pt seems to have started to calm down. Is not trying to stand up, sitting in recliner chair at desk at nurses station.
--- NOTE | 2018-03-14 22:14 | NURSING ---
Pt taking off clothes and trying to climb out of recliner numerous times. Pt swinging at staff and trying to bite. 1:1 provided multiple times. Pt throwing everything in arms reach and swearing at staff. Dr. Burgos updated. New order entered.
[2018-03-14] MEDS: LORazepam 2 MG/ML Syringe 4 MG IM (22:44)
--- NOTE | 2018-03-14 23:16 | PCA ---
While attempting to help SET PAINTER and DEFENSIVE DRIVING INSTRUCTOR calm pt, he grabbed my left hand and forced thumb completely backwards. Two staff members had to step in for him to release hand, which was red and painful. Ice was applied. RN, pt doctor and data warehouse architect aware.
[2018-03-15] MEDS: ALPRAZolam 0.5 MG Tablet 1 MG PO (00:52)
[2018-03-15 05:10] VITALS: BP 159/70; PULSE 62
[2018-03-15] MEDS: Vitamin E 400 UNITS Capsule PO (05:10)
[2018-03-15] MEDS: Senna/Docusate Sodium 1 Tablet 2 TABLET PO ×2 (05:10→16:39)
[2018-03-15] MEDS: Glimepiride 4 MG Tablet PO (05:10)
[2018-03-15] MEDS: Glucerna Shake 120 ML LIQUID PO (05:10)
[2018-03-15] MEDS: Metoprolol Tartrate 25 MG Tablet PO ×2 (05:10→16:39)
[2018-03-15] MEDS: Enoxaparin 30 MG/0.3 ML Syringe SC (05:10)
[2018-03-15] MEDS: Polyethylene Glycol 3350 17 GM PACKET PO (05:10)
[2018-03-15 05:11] VITALS: BP 159/70; PULSE 62
[2018-03-15] MEDS: hydrALAZINE 25 MG Tablet PO ×3 (05:11→21:42)
[2018-03-15] MEDS: Menthol/Lanolin/Calamine/Znox 113 GM Tube 1 APPLIC TOPICAL ×2 (05:16→21:43)
[2018-03-15] MEDS: amLODIPine 10 MG Tablet PO (05:16)
[2018-03-15 07:06] LABS: Bedside Glucose 86 mg/dL (70-110)
--- NOTE | 2018-03-15 08:22 | PCM.TCUNOT ---
Subjective: Resident agitated last night, he was hitting the staff, being uncooperative, he finally settled down after multiple doses of benzodiazepine, he is sleepy this AM. Vitals/I&O's: Vital Signs Temp Pulse Resp BP Pulse Ox 97.7 F L 62 24 H 159/70 H 93 03/14/18 16:00 03/15/18 05:11 03/14/18 16:00 03/15/18 05:11 03/14/18 16:00 Oxygen Delivery Method Room Air Weight: 97.607 kg Body Mass Index (BMI) 30.4 Finger Stick Blood Glucose 135 Intake and Output for Last 24 Hours 03/13/18 03/14/18 03/15/18 23:59 23:59 23:59 Intake Total 1020 / 1020 840 / 840 Balance 1020 / 1020 840 / 840 Microbiology Past 72 Hours 03/12/18 13:00 Urine, Catheterized Urine Culture - Final Culture exhibits no growth. Laboratory Results 03/14/18 11:48: POC Glucose 106 03/14/18 16:45: POC Glucose 273 H 03/15/18 06:48: POC Glucose 86 Past Medical History Past Medical History (Chronic Problems): Chronic Problems (Last Reviewed 03/06/18 @ 13:42 by Tello Iniguez DO) Debility (Chronic) Alzheimer's disease (Chronic) Diabetes mellitus (Chronic) History of coronary artery bypass graft (Chronic) Diabetes mellitus, type 2 (Chronic) Diastolic dysfunction (Chronic) Stage I Depression (Chronic) Dementia (Chronic) Hyperlipidemia (Chronic) CAD (coronary artery disease) (Chronic) Hypertension (Chronic) Medical History: Medical History (Last Reviewed 03/06/18 @ 13:42 by Tello Iniguez DO) Dehydration (Acute) E86.0 Hyponatremia (Acute) E87.1 Diabetes mellitus, type 2 (Chronic) E11.9 Diastolic dysfunction (Chronic) I51.9 Stage I Syncope (Acute) R55 Depression (Chronic) F32.9 Dementia (Chronic) F03.90 Hyperlipidemia (Chronic) E78.5 CAD (coronary artery disease) (Chronic) I25.10 Hypertension (Chronic) I10 Allergies rosuvastatin calcium [From Crestor] Allergy (Verified 03/06/18 08:47) Hives atorvastatin calcium [From Lipitor] Adverse Reaction (Verified 03/06/18 08:47) Pain in joints morphine Adverse Reaction (Verified 03/06/18 08:47) Other LOCALIZED IRRITATION OF VEIN pioglitazone HCl [From Actos] Adverse Reaction (Verified 03/06/18 08:47) Pain in joints Home Medications: Ambulatory Orders Medication Instructions Recorded Nitroglycerin [Nitrostat] 0.4 mg SUBLINGUAL Q5M PRN 07/10/13 Vitamin E 400 unit PO DAILY 03/04/16 Amlodipine [Norvasc] 5 mg PO DAILY 01/02/18 Glimepiride [Amaryl] 4 mg PO DAILY 01/02/18 [place]-3/Dha/Epa/Fish Oil [[place] 3 1 cap PO DAILY 01/02/18 500 Softgel] Simvastatin [Zocor] 40 mg PO QHS 01/02/18 Aspirin 325 mg PO DAILY PRN PRN 03/06/18 Clonidine HCl [Catapres] 0.1 mg PO DAILY 03/06/18 Mupirocin [Bactroban] 1 applic TOPICAL BID 03/06/18 Docusate Sodium [Colace] 100 mg PO BID 03/09/18 Ergocalciferol [Vitamin D] 50,000 unit PO Q7D 03/09/18 Glucerna Shake 120 ml PO 4X/DAY 03/09/18 Heparin Injection (Vial) [Heparin 5,000 unit SC Q8 03/09/18 Na] Insulin Lispro [Humalog KwikPen] See Protocol SQ TIDAC 03/09/18 Magnesium Hydroxide [Milk Of 30 ml PO DAILY PRN PRN udc 03/09/18 Magnesia] Polyethylene Glycol 3350 [Miralax] 17 gm PO DAILY 03/09/18 Prednisone 20 mg PO BID 03/09/18 Surgical History: Surgical History (Last Reviewed 03/06/18 @ 13:42 by Tello Iniguez DO) History of coronary artery bypass graft (Chronic) Z95.1 Surgical History: angioplasty - with stents, coronary bypass surgery, - - Surgery on the left leg secondary to traumatic fracture Psychiatric History: No pertinent psych hx Lives: Spouse/ Significant Other Smoking Status: Never smoker Tobacco Use: Non-smoker Alcohol: None Drugs: None - *Family History Maternal Family History: Family History (Last Reviewed 03/06/18 @ 13:43 by Tello Iniguez DO) Father Heart disease History Items: Cancer Paternal Family History: Family History (Last Reviewed 03/06/18 @ 13:43 by Tello Iniguez DO) Father Heart disease History Items: Heart Disease Review of Systems Constitutional: Denies: Chills, Fever, Weight Change HEENT: Denies: Head Aches, Sinus Congestion, Sinus Drainage Cardiovascular: Denies: Chest Pain, Palpitations Respiratory: Denies: Cough, Shortness of breath at rest, Sputum production Gastrointestinal: Denies: Abdominal Pain, Nausea, Vomiting Genitourinary: Denies: Dysuria Musculoskeletal: Denies: Joint Pain, Joint Tenderness Skin: Denies: Rash, Wounds Neurological: Denies: Numbness, Tingling, Focal weakness Psychiatric: Denies: Anxiety, Depression, Homicidal Ideations, Suicidal Ideations Hematologic/ Lymphatic: Denies: Easy Bruising, Easy Bleeding Patient Problems: Active and Suspected Problems (Last Reviewed 03/06/18 @ 13:42 by Tello Iniguez DO) Acute on chronic kidney failure (Acute) Gout (Acute) - Physical Exam General: Alert, Oriented x3, Cooperative HEENT: Atraumatic, PERRLA, EOMI, Normocephalic Neck: Supple, No JVD, Negative Carotid Bruits Lungs: Clear to auscultation, Normal air movement Cardiovascular: Regular rate, No murmurs Abdomen: Bowel Sounds Present, Soft, Non Tender Extremities: No edema, Capillary Refill Less than 3 Seconds Skin: No rashes, No breakdown Musculoskeletal: No Tenderness to Palpation of Joints or Extremities Neurological: Cranial nerves II-XII grossly intact Psych/Mental Status: Normal Affect, Appropriate Vital Signs Temp Pulse Resp BP Pulse Ox 97.7 F L 62 24 H 159/70 H 93 03/14/18 16:00 03/15/18 05:11 03/14/18 16:00 03/15/18 05:11 03/14/18 16:00 Oxygen Delivery Method Room Air Weight: 97.607 kg Body Mass Index (BMI) 30.4 Finger Stick Blood Glucose 135 Intake and Output for Last 24 Hours 03/13/18 03/14/18 03/15/18 23:59 23:59 23:59 Intake Total 1020 / 1020 840 / 840 Balance 1020 / 1020 840 / 840 Microbiology Past 72 Hours 03/12/18 13:00 Urine Culture - Final Urine, Catheterized Culture exhibits no growth. POC Glucose 03/15/18 03/14/18 03/14/18 06:48 16:45 11:48 POC Glucose 86 273 H 106 Assessment/Plan All Active Problems (Last Reviewed 03/06/18 @ 13:42 by Tello Iniguez DO) Metabolic encephalopathy (Acute) HARISH (acute kidney injury) (Acute) Acute on chronic kidney failure (Acute) Gout (Acute) Dehydration (Acute) Hyponatremia (Acute) Syncope (Acute) 77 year old male with below past medical history hospitalized for acute on chronic kidney failure secondary to prerenal azotemia, rule out vasculitis, complicated by underlying Vascular dementia with acute delirium, admitted to TCU with debility, here for rehabilitation, strengthening, prior to discharge home with spouse. Anxiety - Ativan 1MG PO Q4H PRN, will taper as soon as possible. Insomnia - Trazodone 100Mg QHS. ing/agitation - Depakote 500MG BID, will taper as soon as possible. Hypertension - 200 systolic yesterday, improved today, Metoprolol 25MG BID, Amlodipine 10MG, Hydralazine 25MG TID. Vascular dementia - Donepezil 5MG QHS, Aspirin 81MG daily. Acute Delirium - UA okay, CXR CM, congestion, check CBCD, BMP, KUB. 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
[2018-03-15 09:12] LABS: Absolute Lymphocyte Count 2.03 X10^3/ul (0.83-4.51); Absolute Neutrophil Count 13.3 X10^3/uL (2.0-7.7); Basophil# 0.02 X10^3/uL; Basophil% 0.1 % (0-1); Differential Indicated SCAN CRITERIA MET; Eosinophil# 0.23 X10^3/uL; Eosinophils% 1.3 % (0-5); Hematocrit 29.5 % (40-54); Hemoglobin 9.5 g/dl (13.0-16.5); Lymphocyte # 2.03 X10^3/ul (4.0); Lymphocyte % 11.7 % (19-41); Mean Corp Hgb Conc 32.2 g/gl (32-36); Mean Corpuscular Hgb 28.6 pg (27.0-32.0); Mean Corpuscular Volume 88.9 fL (80-94); Mean Platelet Vol. 9.5 fl (6.2-12.0); Monocyte# 1.61 X10^3/uL; Monocyte% 9.3 % (0-10); Neutrophil # 13.31 X10^3/uL (2.7-7.7); Neutrophil % 76.8 % (47-70); POSITIVE COUNT NO; POSITIVE DIFFERENTIAL YES; POSITIVE MORPHOLOGY NO; Platelet Count 290 K/mm3 (150-450); RBC Distribution Width CV 16.3 % (11.6-14.6); RBC Distribution Width SD 52.5 fl (35.1-43.9); Red Blood Count 3.32 M/mm3 (4.6-6.2); White Blood Count 17.3 K/mm3 (4.4-11.0)
[2018-03-15 09:15] LABS: Anion Gap 9 (5-15); BUN 70 mg/dL (7-18); BUN/Creat Ratio 25.3 RATIO (10-20); Calcium,Total 8.6 mg/dL (8.5-10.1); Chloride 118 mmol/L (98-107); Creatinine, Serum 2.77 mg/dL (0.70-1.30); EST Glomerular Filtration Rate 24 mL/min (>60); Est Glom Filt Rate - Afr Amer 29 mL/min (>60); Estimated Creatinine Clearance 24.16 ml/min; Glucose 71 mg/dL (74-106); Potassium 4.9 mmol/L (3.5-5.1); Sodium Level 148 mmol/L (136-145)
[2018-03-15 09:43] LABS: Differential Comment SCANNED
[2018-03-15 10:00] VITALS: PULSE 81; RESP 20; O2SAT 96
[2018-03-15 11:35] LABS: Bedside Glucose 51 mg/dL (70-110)
[2018-03-15] MEDS: Glucagon 1 MG/ML Syringe IM (11:44)
--- NOTE | 2018-03-15 11:48 | NURSING ---
pt blood sugar 51, pt awakens easily but very drowsy. small amt of OJ given and some yogurt. IM glucagon given d/t lethargy. Will recheck in 15 minutes. lab in to draw backup, awaiting results.
[2018-03-15 12:10] LABS: Bedside Glucose 81 mg/dL (70-110)
[2018-03-15 12:12] LABS: Glucose 54 mg/dL (74-106)
[2018-03-15] MEDS: predniSONE 20 MG Tablet PO ×2 (12:38→13:28)
[2018-03-15] MEDS: Aspirin 81 MG TAB.CHEW PO (12:38)
[2018-03-15] MEDS: Iron Polysaccharide Complex 150 MG CAPSULE PO (12:40)
[2018-03-15 13:15] LABS: Bedside Glucose 78 mg/dL (70-110)
[2018-03-15 14:26] LABS: Bedside Glucose 95 mg/dL (70-110)
--- NOTE | 2018-03-15 14:43 | CASEMGMT ---
Plan of care meeting held. Resident present as well as resident family. No discharge date set at this time. Resident to continue with further care and treatment on the Transitional Care Unit. Resident plans to discharge to home with spouse at time of discharge. Resident with next insurance update due on 04/02/18. Support given. Will continue to follow. Giuliana WALSH, ASSISTANT HALL DIRECTOR
[2018-03-15 16:00] VITALS: BP 181/85; PULSE 73; RESP 24; TEMP 37.1; O2SAT 97
[2018-03-15 16:39] VITALS: BP 181/85; PULSE 91; PULSE 92
[2018-03-15] MEDS: Divalproex Sodium 250 MG Tablet 500 MG PO (16:39)
[2018-03-15 17:05] LABS: Bedside Glucose 79 mg/dL (70-110)
--- NOTE | 2018-03-15 18:35 | NURSING ---
pt blood sugar 79 tonight, pt ate 50% of supper will continue to monitor. pt sitting in recliner chair at nurses station, slightly fidgety. Dozing off/on. legs elevated. personal alarm attatched to pt gown.
[2018-03-15 20:56] LABS: Bedside Glucose 158 mg/dL (70-110)
[2018-03-15 21:42] VITALS: BP 190/77; PULSE 69
[2018-03-15] MEDS: Donepezil HCl 5 MG Tablet PO (21:43)
[2018-03-15] MEDS: traZODone 100 MG Tablet PO (21:43)
[2018-03-16] VITALS (7 sets, daily range): BP systolic 167–196; BP diastolic 75–85; PULSE 60–97; RESP 18–20; TEMP 36.8; O2SAT 96–98
[2018-03-16 02:05] LABS: Bedside Glucose 95 mg/dL (70-110)
[2018-03-16] MEDS: Menthol/Lanolin/Calamine/Znox 113 GM Tube 1 APPLIC TOPICAL ×2 (06:25→21:34)
[2018-03-16] MEDS: Glimepiride 4 MG Tablet PO (06:25)
[2018-03-16] MEDS: Polyethylene Glycol 3350 17 GM PACKET PO (06:26)
[2018-03-16] MEDS: Enoxaparin 30 MG/0.3 ML Syringe SC (06:27)
[2018-03-16] MEDS: Metoprolol Tartrate 25 MG Tablet PO (06:27)
[2018-03-16] MEDS: amLODIPine 10 MG Tablet PO (06:27)
[2018-03-16] MEDS: Senna/Docusate Sodium 1 Tablet 2 TABLET PO ×2 (06:27→16:57)
[2018-03-16] MEDS: hydrALAZINE 25 MG Tablet PO (06:28)
[2018-03-16] MEDS: Glucerna Shake 120 ML LIQUID PO ×2 (06:28→16:57)
[2018-03-16 07:00] LABS: Bedside Glucose 71 mg/dL (70-110)
[2018-03-16] MEDS: Aspirin 81 MG TAB.CHEW PO (08:44)
[2018-03-16] MEDS: Iron Polysaccharide Complex 150 MG CAPSULE PO (08:44)
[2018-03-16] MEDS: Divalproex Sodium 250 MG Tablet 500 MG PO (08:59)
[2018-03-16 11:11] LABS: Bedside Glucose 105 mg/dL (70-110)
--- NOTE | 2018-03-16 14:01 | CASEMGMT ---
Brief interview for mental status (BIMS) and resident mood interview (PHQ-9) completed on this day. BIMS score 09/29. PHQ-9 score 09/13
[2018-03-16] MEDS: hydrALAZINE 50 MG Tablet PO ×2 (14:09→21:35)
--- NOTE | 2018-03-16 14:32 | MDS.RN ---
Resting in bed, eyes closed, did not disturb for pain interview, staff assessment for pain completed.
[2018-03-16 16:45] LABS: Bedside Glucose 53 mg/dL (70-110)
[2018-03-16] MEDS: Metoprolol Tartrate 50 MG Tablet PO (16:57)
[2018-03-16] MEDS: Divalproex Sodium 250 MG Tablet PO (16:58)
[2018-03-16 17:21] LABS: Bedside Glucose 77 mg/dL (70-110)
[2018-03-16 20:55] LABS: Bedside Glucose 122 mg/dL (70-110)
[2018-03-16] MEDS: traZODone 50 MG Tablet PO (21:35)
[2018-03-16] MEDS: Donepezil HCl 5 MG Tablet PO (21:35)
[2018-03-17] VITALS (7 sets, daily range): BP systolic 155–178; BP diastolic 60–96; PULSE 60–72; RESP 18–22; TEMP 36.4; O2SAT 95–97
[2018-03-17 03:11] LABS: Bedside Glucose 81 mg/dL (70-110)
[2018-03-17 05:39] LABS: Absolute Lymphocyte Count 1.98 X10^3/ul (0.83-4.51); Absolute Neutrophil Count 6.4 X10^3/uL (2.0-7.7); Basophil# 0.01 X10^3/uL; Basophil% 0.1 % (0-1); Eosinophil# 0.55 X10^3/uL; Eosinophils% 5.3 % (0-5); Hematocrit 27.4 % (40-54); Hemoglobin 8.8 g/dl (13.0-16.5); Lymphocyte # 1.98 X10^3/ul (4.0); Mean Corp Hgb Conc 32.1 g/gl (32-36); Mean Corpuscular Hgb 29.6 pg (27.0-32.0); Mean Corpuscular Volume 92.3 fL (80-94); Mean Platelet Vol. 9.9 fl (6.2-12.0); Monocyte# 1.39 X10^3/uL; Monocyte% 13.4 % (0-10); Neutrophil # 6.35 X10^3/uL (2.7-7.7); Platelet Count 352 K/mm3 (150-450); RBC Distribution Width CV 16.1 % (11.6-14.6); RBC Distribution Width SD 52.2 fl (35.1-43.9); Red Blood Count 2.97 M/mm3 (4.6-6.2); White Blood Count 10.4 K/mm3 (4.4-11.0)
[2018-03-17 05:42] LABS: Anion Gap 6 (5-15); BUN 57 mg/dL (7-18); BUN/Creat Ratio 21.7 RATIO (10-20); Calcium,Total 8.6 mg/dL (8.5-10.1); Chloride 116 mmol/L (98-107); Creatinine, Serum 2.63 mg/dL (0.70-1.30); EST Glomerular Filtration Rate 25 mL/min (>60); Est Glom Filt Rate - Afr Amer 31 mL/min (>60); Estimated Creatinine Clearance 25.45 ml/min; Glucose 78 mg/dL (74-106); POSITIVE COUNT NO; POSITIVE DIFFERENTIAL NO; POSITIVE MORPHOLOGY NO; Potassium 5.4 mmol/L (3.5-5.1); Sodium Level 148 mmol/L (136-145)
[2018-03-17] MEDS: Menthol/Lanolin/Calamine/Znox 113 GM Tube 1 APPLIC TOPICAL ×2 (06:19→20:48)
[2018-03-17] MEDS: Enoxaparin 30 MG/0.3 ML Syringe SC (06:19)
[2018-03-17] MEDS: Metoprolol Tartrate 50 MG Tablet PO ×2 (06:19→17:10)
[2018-03-17] MEDS: amLODIPine 10 MG Tablet PO (06:19)
[2018-03-17] MEDS: hydrALAZINE 50 MG Tablet PO ×3 (06:20→20:47)
[2018-03-17 06:36] LABS: Bedside Glucose 79 mg/dL (70-110)
[2018-03-17] MEDS: Iron Polysaccharide Complex 150 MG CAPSULE PO (09:23)
[2018-03-17] MEDS: Aspirin 81 MG TAB.CHEW PO (09:23)
[2018-03-17] MEDS: Divalproex Sodium 250 MG Tablet PO ×2 (09:23→17:11)
[2018-03-17] MEDS: Sodium Polystyrene Sulfonate 15 GM/60 ML UDC PO (10:25)
[2018-03-17 11:30] LABS: Bedside Glucose 145 mg/dL (70-110)
[2018-03-17 12:27] LABS: Pathologist Review Reviewed
[2018-03-17] MEDS: Tuberculin,Purif.prot.deriv. 50 TU/ML Vial 5 ML ID (15:04)
[2018-03-17 17:00] LABS: Bedside Glucose 182 mg/dL (70-110)
[2018-03-17] MEDS: Senna/Docusate Sodium 1 Tablet 2 TABLET PO (17:11)
[2018-03-17] MEDS: traZODone 50 MG Tablet PO (20:47)
[2018-03-17] MEDS: Donepezil HCl 5 MG Tablet PO (20:47)
[2018-03-17] MEDS: Glucerna Shake 120 ML LIQUID PO (20:49)
[2018-03-17 21:11] LABS: Bedside Glucose 158 mg/dL (70-110)
[2018-03-18] VITALS (8 sets, daily range): BP systolic 164–173; BP diastolic 64–79; PULSE 56–61; RESP 22; TEMP 37; O2SAT 96
[2018-03-18] MEDS: LORazepam 1 MG Tablet PO (03:00)
[2018-03-18] MEDS: Enoxaparin 30 MG/0.3 ML Syringe SC (06:18)
[2018-03-18] MEDS: Glucerna Shake 120 ML LIQUID PO ×3 (06:18→17:40)
--- NOTE | 2018-03-18 06:53 | NURSING ---
this nurse in to give AM meds. BP 173/64 HR 61. This nurse attempted to give meds but pt refused. Pts in room and also attempted to give meds but pt refused. Pt requesting to try to give meds again after pt is up for the day. Will update dayshift.
[2018-03-18 07:30] LABS: Anion Gap 9 (5-15); BUN 52 mg/dL (7-18); BUN/Creat Ratio 19.5 RATIO (10-20); Calcium,Total 8.4 mg/dL (8.5-10.1); Chloride 118 mmol/L (98-107); Creatinine, Serum 2.66 mg/dL (0.70-1.30); EST Glomerular Filtration Rate 25 mL/min (>60); Est Glom Filt Rate - Afr Amer 30 mL/min (>60); Estimated Creatinine Clearance 25.16 ml/min; Glucose 100 mg/dL (74-106); Sodium Level 148 mmol/L (136-145)
[2018-03-18] MEDS: Iron Polysaccharide Complex 150 MG CAPSULE PO (08:31)
[2018-03-18] MEDS: Metoprolol Tartrate 50 MG Tablet PO ×2 (08:31→17:39)
[2018-03-18] MEDS: Aspirin 81 MG TAB.CHEW PO (08:31)
[2018-03-18] MEDS: hydrALAZINE 50 MG Tablet PO ×3 (08:31→20:57)
[2018-03-18] MEDS: Divalproex Sodium 250 MG Tablet PO ×2 (08:32→17:40)
[2018-03-18] MEDS: amLODIPine 10 MG Tablet PO (08:32)
[2018-03-18] MEDS: Menthol/Lanolin/Calamine/Znox 113 GM Tube 1 APPLIC TOPICAL ×2 (08:32→20:58)
[2018-03-18] MEDS: Senna/Docusate Sodium 1 Tablet 2 TABLET PO (17:38)
[2018-03-18] MEDS: traZODone 50 MG Tablet PO (20:57)
[2018-03-18] MEDS: Donepezil HCl 5 MG Tablet PO (20:57)
[2018-03-19] VITALS (8 sets, daily range): BP systolic 178–187; BP diastolic 70–80; PULSE 57–67; RESP 20–24; TEMP 36; O2SAT 94–95
[2018-03-19] MEDS: Senna/Docusate Sodium 1 Tablet 2 TABLET PO ×2 (06:45→17:28)
[2018-03-19] MEDS: amLODIPine 10 MG Tablet PO (06:45)
[2018-03-19] MEDS: Metoprolol Tartrate 50 MG Tablet PO ×2 (06:46→17:28)
[2018-03-19] MEDS: Polyethylene Glycol 3350 17 GM PACKET PO (06:46)
[2018-03-19] MEDS: hydrALAZINE 50 MG Tablet PO ×3 (06:46→21:20)
[2018-03-19] MEDS: Enoxaparin 30 MG/0.3 ML Syringe SC (06:51)
[2018-03-19] MEDS: Menthol/Lanolin/Calamine/Znox 113 GM Tube 1 APPLIC TOPICAL ×2 (06:53→21:26)
[2018-03-19] MEDS: Divalproex Sodium 250 MG Tablet PO ×2 (08:24→17:28)
[2018-03-19] MEDS: Iron Polysaccharide Complex 150 MG CAPSULE PO (08:25)
[2018-03-19] MEDS: Aspirin 81 MG TAB.CHEW PO (08:25)
[2018-03-19] MEDS: Glucerna Shake 120 ML LIQUID PO ×2 (11:56→17:31)
[2018-03-19] MEDS: Furosemide 20 MG Tablet PO (17:28)
[2018-03-19] MEDS: Donepezil HCl 5 MG Tablet PO (21:20)
[2018-03-19] MEDS: traZODone 50 MG Tablet PO (21:20)
[2018-03-20] VITALS (9 sets, daily range): BP systolic 150–195; BP diastolic 60–80; PULSE 58–75; RESP 16–22; TEMP 36.7; O2SAT 96–97
[2018-03-20] MEDS: Menthol/Lanolin/Calamine/Znox 113 GM Tube 1 APPLIC TOPICAL ×2 (06:26→20:42)
[2018-03-20] MEDS: hydrALAZINE 50 MG Tablet PO ×3 (06:27→20:41)
[2018-03-20] MEDS: amLODIPine 10 MG Tablet PO (06:27)
[2018-03-20] MEDS: Enoxaparin 30 MG/0.3 ML Syringe SC (06:27)
[2018-03-20] MEDS: Furosemide 20 MG Tablet PO (06:27)
[2018-03-20] MEDS: Metoprolol Tartrate 50 MG Tablet PO ×2 (06:27→17:31)
[2018-03-20] MEDS: Aspirin 81 MG TAB.CHEW PO (08:18)
[2018-03-20] MEDS: Divalproex Sodium 250 MG Tablet PO ×2 (08:18→17:31)
[2018-03-20] MEDS: Iron Polysaccharide Complex 150 MG CAPSULE PO (08:19)
[2018-03-20] MEDS: Glucerna Shake 120 ML LIQUID PO ×2 (10:57→20:43)
[2018-03-20] MEDS: Ipratropium/Albuterol Sulfate 3 ML AMPUL.NEB INHALATION ×2 (13:00→16:00)
[2018-03-20] MEDS: Donepezil HCl 5 MG Tablet PO (20:41)
[2018-03-20] MEDS: traZODone 50 MG Tablet PO (20:41)
[2018-03-21] VITALS (7 sets, daily range): BP systolic 143–192; BP diastolic 61–84; PULSE 57–88; RESP 20; TEMP 36.5; O2SAT 93–97
[2018-03-21] MEDS: Furosemide 20 MG Tablet PO (04:22)
[2018-03-21] MEDS: hydrALAZINE 50 MG Tablet PO ×3 (04:22→20:22)
[2018-03-21] MEDS: Enoxaparin 30 MG/0.3 ML Syringe SC (04:22)
[2018-03-21] MEDS: Glucerna Shake 120 ML LIQUID PO ×4 (04:22→20:24)
[2018-03-21] MEDS: Senna/Docusate Sodium 1 Tablet 2 TABLET PO ×2 (04:22→17:11)
[2018-03-21] MEDS: amLODIPine 10 MG Tablet PO (04:23)
[2018-03-21] MEDS: Metoprolol Tartrate 50 MG Tablet PO ×2 (04:23→17:11)
[2018-03-21] MEDS: Menthol/Lanolin/Calamine/Znox 113 GM Tube 1 APPLIC TOPICAL ×2 (04:23→20:24)
[2018-03-21] MEDS: Polyethylene Glycol 3350 17 GM PACKET PO (04:25)
[2018-03-21 06:00] LABS: Anion Gap 9 (5-15); BUN 41 mg/dL (7-18); BUN/Creat Ratio 15.6 RATIO (10-20); Calcium,Total 8.3 mg/dL (8.5-10.1); Chloride 114 mmol/L (98-107); Creatinine, Serum 2.62 mg/dL (0.70-1.30); EST Glomerular Filtration Rate 25 mL/min (>60); Est Glom Filt Rate - Afr Amer 31 mL/min (>60); Estimated Creatinine Clearance 25.55 ml/min; Glucose 113 mg/dL (74-106); Potassium 4.5 mmol/L (3.5-5.1); Sodium Level 147 mmol/L (136-145)
[2018-03-21] MEDS: Aspirin 81 MG TAB.CHEW PO (08:45)
[2018-03-21] MEDS: Iron Polysaccharide Complex 150 MG CAPSULE PO (08:45)
[2018-03-21] MEDS: Divalproex Sodium 250 MG Tablet PO ×2 (08:45→17:11)
--- NOTE | 2018-03-21 10:27 | NURSING ---
Dr Burgos updated on CT scan results of chest. No new orders. continue lasix 40mg PO daily.
[2018-03-21] MEDS: Donepezil HCl 5 MG Tablet PO (20:22)
[2018-03-21] MEDS: traZODone 50 MG Tablet PO (20:22)
[2018-03-21] MEDS: Nystatin Powder 15gm Bottle 1 APPLIC TOPICAL (20:24)
[2018-03-22] VITALS (8 sets, daily range): BP systolic 159–188; BP diastolic 71–78; PULSE 55–79; RESP 18–22; TEMP 35.9; O2SAT 93–95
[2018-03-22] MEDS: Senna/Docusate Sodium 1 Tablet 2 TABLET PO (05:25)
[2018-03-22] MEDS: Polyethylene Glycol 3350 17 GM PACKET PO (05:25)
[2018-03-22] MEDS: Glucerna Shake 120 ML LIQUID PO ×3 (05:25→21:59)
[2018-03-22] MEDS: Enoxaparin 30 MG/0.3 ML Syringe SC (05:26)
[2018-03-22] MEDS: amLODIPine 10 MG Tablet PO (05:26)
[2018-03-22] MEDS: Furosemide 20 MG Tablet PO (05:26)
[2018-03-22] MEDS: hydrALAZINE 50 MG Tablet PO (05:26)
[2018-03-22] MEDS: Metoprolol Tartrate 50 MG Tablet PO ×2 (05:26→17:47)
[2018-03-22] MEDS: Menthol/Lanolin/Calamine/Znox 113 GM Tube 1 APPLIC TOPICAL ×2 (05:35→22:02)
[2018-03-22] MEDS: Nystatin Powder 15gm Bottle 1 APPLIC TOPICAL ×2 (05:35→22:02)
--- NOTE | 2018-03-22 08:07 | NURSING ---
AID CAME TO THIS NURSE AND STATED PT WAS THROWING UP AND HAD DIARRHEA. PT NAUSEATED, UP IN RECLINER. REPORTED TO KEANU MORENO.
[2018-03-22] MEDS: Ondansetron ODT 4 MG Tablet PO (08:37)
[2018-03-22] MEDS: Divalproex Sodium 250 MG Tablet PO ×2 (09:31→17:47)
[2018-03-22] MEDS: Iron Polysaccharide Complex 150 MG CAPSULE PO (09:32)
[2018-03-22] MEDS: Aspirin 81 MG TAB.CHEW PO (09:32)
--- NOTE | 2018-03-22 11:38 | MDS.RN ---
Information for the mds was obtained from review of the clinical record, interview of resident, staff, and direct observation of resident's care.
--- NOTE | 2018-03-22 13:38 | CASEMGMT ---
Brief interview for mental status (BIMS) and resident mood interview (PHQ-9) completed on this day. BIMS score 09/29. PHQ-9 score 09/13
--- NOTE | 2018-03-22 13:38 | CASEMGMT ---
Social Work Met with resident and resident spouse, Viry in room. Resident sleeping during most of interaction and not open to staying awake for discussion. Resident is agreeable to this social media manager speaking with Viry. This social media manager collaborating with Viry on discharge plan as resident has been reluctant to work with therapy and has not been showing much progress per therapy. Viry voicing understanding and aware of concerns of resident being able to return to home with spouse. Viry voicing to have been speaking with resident daughterLucita on the matter and that [facility], [facility] resident with order or preference as listed above. Viry voicing to not be able to afford a snf. This social media manager broaching topic of Medicaid application with Viry. Viry is agreeable to completing a medicaid application and is declining for this social media manager to assist with application voicing that Lucita will be able to assist with completing the application. This social media manager providing Viry with a Medicaid application. Plan is for Viry to get the completed Medicaid application back to this social media manager by Tuesday to fax to [facility]. No discharge date set at this time. Plan A is to return home with spouse and Plan B would be to transition to an extended care facility under Medicaid. Support given. Will continue to follow. Giuliana WALSH, CERAMIC TILE MECHANIC
--- NOTE | 2018-03-22 14:24 | NURSING ---
Patient still has c/o nausea, zofran ineffective. Dr. Burgos updated with KUB results, NO to start Reglan 10mg qACHS. Pt and family updated.
[2018-03-22] MEDS: hydrALAZINE 50 MG Tablet 100 MG PO ×2 (14:27→21:58)
--- NOTE | 2018-03-22 15:30 | NURSING ---
Per ST, patient to have cookie swallow tomorrow at 1430. Patient and family aware.
[2018-03-22] MEDS: Metoclopramide 10 MG Tablet PO ×2 (17:46→21:57)
[2018-03-22 19:55] LABS: Absolute Neutrophil Count 1.8 X10^3/uL (2.0-7.7); Eosinophil# 0.06 X10^3/uL; Eosinophils% 2.4 % (0-5); Lymphocyte % 15.9 % (19-41); Mean Corp Hgb Conc 32.2 g/gl (32-36); Mean Corpuscular Hgb 29.3 pg (27.0-32.0); Mean Corpuscular Volume 90.9 fL (80-94); Mean Platelet Vol. 10.7 fl (6.2-12.0); Monocyte# 0.28 X10^3/uL; Monocyte% 11.2 % (0-10); Neutrophil # 1.76 X10^3/uL (2.7-7.7); Neutrophil % 70.1 % (47-70); Platelet Count 78 K/mm3 (150-450); RBC Distribution Width CV 15.8 % (11.6-14.6); RBC Distribution Width SD 53.2 fl (35.1-43.9); Red Blood Count 6.29 M/mm3 (4.6-6.2); White Blood Count 2.5 K/mm3 (4.4-11.0)
[2018-03-22 19:57] LABS: Hematocrit 57.2 % (40-54)
[2018-03-22 19:58] LABS: Hemoglobin 18.4 g/dl (13.0-16.5); POSITIVE COUNT NO; POSITIVE DIFFERENTIAL YES; POSITIVE MORPHOLOGY NO
[2018-03-22 19:59] LABS: Differential Indicated SCAN CRITERIA MET
[2018-03-22 20:20] LABS: Anion Gap 9 (5-15); BUN 38 mg/dL (7-18); BUN/Creat Ratio 13.7 RATIO (10-20); Calcium,Total 8.4 mg/dL (8.5-10.1); Chloride 112 mmol/L (98-107); Creatinine, Serum 2.77 mg/dL (0.70-1.30); EST Glomerular Filtration Rate 24 mL/min (>60); Est Glom Filt Rate - Afr Amer 29 mL/min (>60); Estimated Creatinine Clearance 24.16 ml/min; Glucose 120 mg/dL (74-106); Potassium 4.3 mmol/L (3.5-5.1); Sodium Level 145 mmol/L (136-145)
[2018-03-22] MEDS: traZODone 50 MG Tablet PO (21:57)
[2018-03-22] MEDS: Donepezil HCl 5 MG Tablet PO (21:58)
[2018-03-22] MEDS: Azithromycin 250 MG Tablet 500 MG PO (21:58)
--- NOTE | 2018-03-22 23:03 | NURSING ---
Addendum entered by Corine Galeas 03/23/18 09:39: New order to DC PICC insertion order. Pt drinking fluids fine, just needs reminded and assisted with liquids. Original Note: Dr. Burgos updated on unable to get IV started. New order for PICC line in the AM.
[2018-03-22 23:23] LABS: Absolute Lymphocyte Count 1.55 X10^3/ul (0.83-4.51); Absolute Neutrophil Count 5.5 X10^3/uL (2.0-7.7); Basophil# 0.01 X10^3/uL; Basophil% 0.1 % (0-1); Eosinophil# 0.16 X10^3/uL; Eosinophils% 1.9 % (0-5); Hematocrit 26.9 % (40-54); Hemoglobin 8.7 g/dl (13.0-16.5); Lymphocyte # 1.55 X10^3/ul (4.0); Lymphocyte % 18.6 % (19-41); Mean Corp Hgb Conc 32.3 g/gl (32-36); Mean Corpuscular Hgb 29.4 pg (27.0-32.0); Mean Corpuscular Volume 90.9 fL (80-94); Mean Platelet Vol. 10.4 fl (6.2-12.0); Monocyte% 13.2 % (0-10); Neutrophil # 5.49 X10^3/uL (2.7-7.7); Platelet Count 195 K/mm3 (150-450); RBC Distribution Width CV 15.8 % (11.6-14.6); RBC Distribution Width SD 52.6 fl (35.1-43.9); Red Blood Count 2.96 M/mm3 (4.6-6.2); White Blood Count 8.3 K/mm3 (4.4-11.0)
[2018-03-22 23:24] LABS: POSITIVE COUNT NO; POSITIVE DIFFERENTIAL NO; POSITIVE MORPHOLOGY NO
[2018-03-23] VITALS (9 sets, daily range): BP systolic 139–188; BP diastolic 55–112; PULSE 63–90; RESP 18–22; TEMP 36.7–36.8; O2SAT 93–96
[2018-03-23] MEDS: Cefdinir 300 MG Capsule PO ×2 (04:49→08:33)
[2018-03-23] MEDS: amLODIPine 10 MG Tablet PO (04:49)
[2018-03-23] MEDS: Enoxaparin 30 MG/0.3 ML Syringe SC (04:49)
[2018-03-23] MEDS: Glucerna Shake 120 ML LIQUID PO ×2 (04:49→12:00)
[2018-03-23] MEDS: Furosemide 20 MG Tablet PO (04:49)
[2018-03-23] MEDS: Metoprolol Tartrate 50 MG Tablet PO ×2 (04:50→17:08)
[2018-03-23] MEDS: hydrALAZINE 50 MG Tablet 100 MG PO ×3 (04:50→19:14)
[2018-03-23] MEDS: Menthol/Lanolin/Calamine/Znox 113 GM Tube 1 APPLIC TOPICAL ×2 (04:52→20:27)
[2018-03-23] MEDS: Nystatin Powder 15gm Bottle 1 APPLIC TOPICAL ×2 (04:54→20:27)
[2018-03-23] MEDS: Iron Polysaccharide Complex 150 MG CAPSULE PO (08:34)
[2018-03-23] MEDS: Aspirin 81 MG TAB.CHEW PO (08:34)
[2018-03-23] MEDS: Metoclopramide 10 MG Tablet PO ×4 (08:34→20:27)
[2018-03-23] MEDS: Divalproex Sodium 250 MG Tablet PO ×2 (08:34→17:08)
[2018-03-23] MEDS: Azithromycin 250 MG Tablet PO (08:37)
--- NOTE | 2018-03-23 11:51 | NURSING ---
Aerosals changed to PRN, pt has been refusing them for respiratory.
[2018-03-23 14:35] LABS: Pathologist Review Reviewed
[2018-03-23] MEDS: Senna/Docusate Sodium 1 Tablet 2 TABLET PO (17:08)
--- NOTE | 2018-03-23 19:04 | EKG12_ITS ---
Test Reason : CP Blood Pressure : / mmHG Vent. Rate : 065 BPM Atrial Rate : 065 BPM P-R Int : 150 ms QRS Dur : 088 ms QT Int : 432 ms P-R-T Axes : 049 008 075 degrees QTc Int : 449 ms Normal sinus rhythm Normal ECG When compared with ECG of 13-MAR-2018 15:18, No significant change was found Confirmed by HENRY BECERRA, JAYDON ([id number]), editor continuity and script RORY ISAACS ([id number]) on 03/31/2018 1:34:06 PM Referred By: DEMARCUS Confirmed By:JAYDON FIGUEROA MD
--- NOTE | 2018-03-23 19:34 | NURSING ---
Addendum entered by Corine Galeas 03/23/18 19:51: Bp improved 139/66, denies cp after nitro. aerosal tx being administered, pt resting in bed awake, pa in place. Original Note: Addendum entered by Corine Galeas 03/23/18 19:47: pt cont to c/o chest pain 02/24, nitro x1 given. Original Note: pt c/o chest pain, skin pale, resp 22. BP 188/110, HR 63, sat 95 % on RA. EKG ordered, NSR. Dr Burgos updated, new order to give apresoline early and recheck BP in one hour. Resp therapy notified for breathing tx.
[2018-03-23] MEDS: Ipratropium/Albuterol Sulfate 3 ML AMPUL.NEB INHALATION (19:48)
[2018-03-23] MEDS: traZODone 50 MG Tablet PO (20:27)
[2018-03-23] MEDS: Donepezil HCl 5 MG Tablet PO (20:27)
[2018-03-23] MEDS: LORazepam 1 MG Tablet PO (23:24)
[2018-03-24] VITALS (8 sets, daily range): BP systolic 165–191; BP diastolic 71–88; PULSE 61–82; RESP 18; TEMP 37; O2SAT 98
[2018-03-24 05:41] LABS: Absolute Lymphocyte Count 1.37 X10^3/ul (0.83-4.51); Absolute Neutrophil Count 3.8 X10^3/uL (2.0-7.7); Basophil# 0.01 X10^3/uL; Basophil% 0.2 % (0-1); Eosinophil# 0.13 X10^3/uL; Eosinophils% 2.1 % (0-5); Hematocrit 24.8 % (40-54); Hemoglobin 7.8 g/dl (13.0-16.5); Lymphocyte # 1.37 X10^3/ul (4.0); Lymphocyte % 21.8 % (19-41); Mean Corp Hgb Conc 31.5 g/gl (32-36); Mean Corpuscular Hgb 29.2 pg (27.0-32.0); Mean Corpuscular Volume 92.9 fL (80-94); Monocyte# 0.94 X10^3/uL; Monocyte% 14.9 % (0-10); Neutrophil # 3.82 X10^3/uL (2.7-7.7); Neutrophil % 60.7 % (47-70); Platelet Count 178 K/mm3 (150-450); RBC Distribution Width CV 15.5 % (11.6-14.6); RBC Distribution Width SD 51.1 fl (35.1-43.9); Red Blood Count 2.67 M/mm3 (4.6-6.2); White Blood Count 6.3 K/mm3 (4.4-11.0)
[2018-03-24 05:42] LABS: POSITIVE COUNT NO; POSITIVE DIFFERENTIAL NO; POSITIVE MORPHOLOGY NO
[2018-03-24 05:49] LABS: Anion Gap 7 (5-15); BUN 37 mg/dL (7-18); BUN/Creat Ratio 12.8 RATIO (10-20); Calcium,Total 8.4 mg/dL (8.5-10.1); Chloride 115 mmol/L (98-107); Creatinine, Serum 2.88 mg/dL (0.70-1.30); EST Glomerular Filtration Rate 23 mL/min (>60); Est Glom Filt Rate - Afr Amer 28 mL/min (>60); Estimated Creatinine Clearance 23.24 ml/min; Glucose 107 mg/dL (74-106); Sodium Level 148 mmol/L (136-145)
[2018-03-24] MEDS: amLODIPine 10 MG Tablet PO (06:13)
[2018-03-24] MEDS: Metoclopramide 10 MG Tablet PO ×4 (06:13→20:28)
[2018-03-24] MEDS: Senna/Docusate Sodium 1 Tablet 2 TABLET PO (06:13)
[2018-03-24] MEDS: Enoxaparin 30 MG/0.3 ML Syringe SC (06:13)
[2018-03-24] MEDS: Furosemide 20 MG Tablet PO (06:13)
[2018-03-24] MEDS: hydrALAZINE 50 MG Tablet 100 MG PO ×3 (06:14→20:27)
[2018-03-24] MEDS: Nystatin Powder 15gm Bottle 1 APPLIC TOPICAL ×2 (06:17→20:28)
[2018-03-24] MEDS: Menthol/Lanolin/Calamine/Znox 113 GM Tube 1 APPLIC TOPICAL ×2 (06:18→20:28)
[2018-03-24] MEDS: Metoprolol Tartrate 50 MG Tablet PO (06:18)
[2018-03-24] MEDS: Iron Polysaccharide Complex 150 MG CAPSULE PO (08:00)
[2018-03-24] MEDS: Aspirin 81 MG TAB.CHEW PO (08:00)
[2018-03-24] MEDS: Azithromycin 250 MG Tablet PO (08:00)
[2018-03-24] MEDS: Divalproex Sodium 250 MG Tablet PO ×2 (08:00→17:18)
[2018-03-24] MEDS: Glucerna Shake 120 ML LIQUID PO (12:18)
[2018-03-24] MEDS: Metoprolol Tartrate 100 MG Tablet PO (17:18)
[2018-03-24] MEDS: Ipratropium/Albuterol Sulfate 3 ML AMPUL.NEB INHALATION (19:05)
[2018-03-24] MEDS: traZODone 50 MG Tablet PO (20:28)
[2018-03-24] MEDS: Donepezil HCl 5 MG Tablet PO (20:28)
[2018-03-24] MEDS: LORazepam 1 MG Tablet PO (23:21)
[2018-03-25] VITALS (8 sets, daily range): BP systolic 148–198; BP diastolic 65–81; PULSE 55–68; RESP 16–18; TEMP 36.9; O2SAT 2–98
[2018-03-25] MEDS: Menthol/Lanolin/Calamine/Znox 113 GM Tube 1 APPLIC TOPICAL ×2 (06:20→22:02)
[2018-03-25] MEDS: amLODIPine 10 MG Tablet PO (06:21)
[2018-03-25] MEDS: Enoxaparin 30 MG/0.3 ML Syringe SC (06:21)
[2018-03-25] MEDS: Cefdinir 300 MG Capsule PO (06:21)
[2018-03-25] MEDS: Furosemide 20 MG Tablet PO (06:21)
[2018-03-25] MEDS: Nystatin Powder 15gm Bottle 1 APPLIC TOPICAL ×2 (06:21→22:03)
[2018-03-25] MEDS: Metoclopramide 10 MG Tablet PO ×4 (06:22→22:03)
[2018-03-25] MEDS: Metoprolol Tartrate 100 MG Tablet PO ×2 (06:22→18:28)
[2018-03-25] MEDS: hydrALAZINE 50 MG Tablet 100 MG PO ×3 (06:22→22:03)
[2018-03-25] MEDS: Ipratropium/Albuterol Sulfate 3 ML AMPUL.NEB INHALATION ×2 (08:05→19:12)
[2018-03-25] MEDS: Azithromycin 250 MG Tablet PO (09:03)
[2018-03-25] MEDS: Divalproex Sodium 250 MG Tablet PO ×2 (09:03→18:28)
[2018-03-25] MEDS: Aspirin 81 MG TAB.CHEW PO (09:03)
[2018-03-25] MEDS: Iron Polysaccharide Complex 150 MG CAPSULE PO (09:03)
[2018-03-25] MEDS: LORazepam 1 MG Tablet PO (10:53)
[2018-03-25] MEDS: Glucerna Shake 120 ML LIQUID PO (13:13)
[2018-03-25] MEDS: traZODone 50 MG Tablet PO (22:02)
[2018-03-25] MEDS: Donepezil HCl 5 MG Tablet PO (22:02)
[2018-03-26] VITALS (8 sets, daily range): BP systolic 162–176; BP diastolic 70–88; PULSE 59–69; RESP 18–22; TEMP 36.4; O2SAT 97
[2018-03-26] MEDS: LORazepam 1 MG Tablet PO ×3 (03:18→18:18)
[2018-03-26] MEDS: Menthol/Lanolin/Calamine/Znox 113 GM Tube 1 APPLIC TOPICAL ×2 (06:37→21:58)
[2018-03-26] MEDS: amLODIPine 10 MG Tablet PO (06:38)
[2018-03-26] MEDS: Furosemide 20 MG Tablet PO (06:38)
[2018-03-26] MEDS: Cefdinir 300 MG Capsule PO (06:38)
[2018-03-26] MEDS: Metoclopramide 10 MG Tablet PO ×4 (06:38→21:59)
[2018-03-26] MEDS: Nystatin Powder 15gm Bottle 1 APPLIC TOPICAL ×2 (06:38→21:59)
[2018-03-26] MEDS: Enoxaparin 30 MG/0.3 ML Syringe SC (06:38)
[2018-03-26] MEDS: hydrALAZINE 50 MG Tablet 100 MG PO ×3 (06:39→21:59)
[2018-03-26] MEDS: Metoprolol Tartrate 100 MG Tablet PO ×2 (06:39→18:10)
[2018-03-26] MEDS: Iron Polysaccharide Complex 150 MG CAPSULE PO (08:13)
[2018-03-26] MEDS: Divalproex Sodium 250 MG Tablet PO ×2 (08:13→18:01)
[2018-03-26] MEDS: Aspirin 81 MG TAB.CHEW PO (08:13)
[2018-03-26] MEDS: Azithromycin 250 MG Tablet PO (12:42)
[2018-03-26] MEDS: Ipratropium/Albuterol Sulfate 3 ML AMPUL.NEB INHALATION ×2 (12:46→22:12)
--- NOTE | 2018-03-26 12:59 | NURSING ---
R' very restless. Would not eat lunch, was visible struggling with SOB. SPO2 93%, RR was 22, refused breathing treatment, held mask in front of his mouth and nose for 2-3 minutes when he refused by pushing it away. Changed positions several times with no success. Ativan given to help him relax and improve breathing.
[2018-03-26] MEDS: Donepezil HCl 5 MG Tablet PO (21:58)
[2018-03-26] MEDS: traZODone 50 MG Tablet PO (21:59)
[2018-03-27] VITALS (12 sets, daily range): BP systolic 152–184; BP diastolic 68–101; PULSE 59–64; RESP 18–20; TEMP 36.6; O2SAT 89–97
[2018-03-27] MEDS: LORazepam 1 MG Tablet PO (03:25)
--- NOTE | 2018-03-27 07:39 | NURSING ---
This RN went in to administer AM medications. Pt currently drowsy at this time, unable to safely take pills at this time. Significant other at bedside.
[2018-03-27] MEDS: hydrALAZINE 50 MG Tablet 100 MG PO ×3 (09:42→21:27)
[2018-03-27] MEDS: Furosemide 20 MG Tablet PO (09:44)
[2018-03-27] MEDS: Metoprolol Tartrate 100 MG Tablet PO ×2 (09:44→16:42)
[2018-03-27] MEDS: Cefdinir 300 MG Capsule PO (09:45)
[2018-03-27] MEDS: Enoxaparin 30 MG/0.3 ML Syringe SC (09:45)
[2018-03-27] MEDS: amLODIPine 10 MG Tablet PO (09:45)
[2018-03-27] MEDS: Metoclopramide 10 MG Tablet PO ×4 (09:46→21:27)
[2018-03-27] MEDS: Menthol/Lanolin/Calamine/Znox 113 GM Tube 1 APPLIC TOPICAL ×2 (09:49→21:31)
[2018-03-27] MEDS: Nystatin Powder 15gm Bottle 1 APPLIC TOPICAL ×2 (09:49→21:31)
[2018-03-27] MEDS: Glucerna Shake 120 ML LIQUID PO ×4 (09:52→21:27)
[2018-03-27] MEDS: Aspirin 81 MG TAB.CHEW PO (09:53)
[2018-03-27] MEDS: Azithromycin 250 MG Tablet PO (09:53)
[2018-03-27] MEDS: Iron Polysaccharide Complex 150 MG CAPSULE PO (09:53)
[2018-03-27] MEDS: Divalproex Sodium 250 MG Tablet PO ×2 (09:53→16:42)
--- NOTE | 2018-03-27 09:57 | NURSING ---
PT UP IN RECLINER, BP 184/101, OXYGEN 89% ROOM AIR. ALL 6AM AND 8AM MEDS GIVEN. APPLYED 2L OF O2. REPORTED TO KEANU BALLARD. WILL CONTINUE TO MONITOR.
[2018-03-27] MEDS: Senna/Docusate Sodium 1 Tablet 2 TABLET PO (16:41)
--- NOTE | 2018-03-27 20:19 | NURSING ---
Pt in to room. O2 tubing found to be lying on the floor. Oxygen level noted to be at 87%, pt appeared to not be in distress. 2L O2 reapplied at this time. Reading up to 93%.
[2018-03-27] MEDS: Donepezil HCl 5 MG Tablet PO (21:27)
[2018-03-27] MEDS: traZODone 50 MG Tablet PO (21:27)
[2018-03-27] MEDS: Ipratropium/Albuterol Sulfate 3 ML AMPUL.NEB INHALATION (22:10)
[2018-03-28] VITALS (9 sets, daily range): BP systolic 142–185; BP diastolic 65–77; PULSE 58–78; RESP 16–20; TEMP 36.8; O2SAT 93–96
--- NOTE | 2018-03-28 04:03 | NURSING ---
Pt called in last HS stating that pt had said he wanted the door shut and just left to . Will update Dr. Burgos and Health Information Assistant.
--- NOTE | 2018-03-28 05:57 | PCA ---
res. inc of urine, refused to have his attends changed, sat in chair on her tablet, when mailroom clerk left the room, got into bed with patient, to jonathan aggarwal aware
[2018-03-28] MEDS: Senna/Docusate Sodium 1 Tablet 2 TABLET PO ×2 (07:36→17:05)
[2018-03-28] MEDS: hydrALAZINE 50 MG Tablet 100 MG PO ×3 (07:36→19:33)
[2018-03-28] MEDS: amLODIPine 10 MG Tablet PO (07:37)
[2018-03-28] MEDS: Cefdinir 300 MG Capsule PO (07:37)
[2018-03-28] MEDS: Enoxaparin 30 MG/0.3 ML Syringe SC (07:37)
[2018-03-28] MEDS: Furosemide 20 MG Tablet PO (07:37)
[2018-03-28] MEDS: Metoprolol Tartrate 100 MG Tablet PO ×2 (07:37→17:05)
[2018-03-28] MEDS: Glucerna Shake 120 ML LIQUID PO ×4 (07:37→19:36)
[2018-03-28] MEDS: Metoclopramide 10 MG Tablet PO ×4 (07:40→19:33)
[2018-03-28] MEDS: Menthol/Lanolin/Calamine/Znox 113 GM Tube 1 APPLIC TOPICAL ×2 (07:48→19:43)
[2018-03-28] MEDS: Nystatin Powder 15gm Bottle 1 APPLIC TOPICAL ×2 (07:48→23:00)
[2018-03-28] MEDS: Iron Polysaccharide Complex 150 MG CAPSULE PO (09:08)
[2018-03-28] MEDS: Divalproex Sodium 250 MG Tablet PO ×2 (09:08→17:05)
[2018-03-28] MEDS: Azithromycin 250 MG Tablet PO (09:08)
[2018-03-28] MEDS: Aspirin 81 MG TAB.CHEW PO (09:08)
--- NOTE | 2018-03-28 11:35 | CASEMGMT ---
Social Work Medicaid application obtained from resident spouse and resident daughter. Faxed application to [facility] in [facility]. Will continue to follow. Giuliana WALSH, AUTOMATED MANUFACTURING INSTRUCTOR
[2018-03-28] MEDS: LORazepam 1 MG Tablet PO (19:33)
[2018-03-28] MEDS: traZODone 50 MG Tablet PO (19:33)
[2018-03-28] MEDS: Donepezil HCl 5 MG Tablet PO (19:33)
[2018-03-28] MEDS: Ipratropium/Albuterol Sulfate 3 ML AMPUL.NEB INHALATION (20:50)
[2018-03-29] VITALS (10 sets, daily range): BP systolic 146–169; BP diastolic 57–77; PULSE 55–64; RESP 18–22; TEMP 36.5; O2SAT 94–99
[2018-03-29] MEDS: LORazepam 1 MG Tablet PO ×2 (01:14→21:59)
[2018-03-29] MEDS: Furosemide 20 MG Tablet PO (05:14)
[2018-03-29] MEDS: Metoclopramide 10 MG Tablet PO ×4 (05:14→22:00)
[2018-03-29] MEDS: Cefdinir 300 MG Capsule PO (05:14)
[2018-03-29] MEDS: Senna/Docusate Sodium 1 Tablet 2 TABLET PO (05:14)
[2018-03-29] MEDS: hydrALAZINE 50 MG Tablet 100 MG PO ×3 (05:14→22:02)
[2018-03-29] MEDS: Enoxaparin 30 MG/0.3 ML Syringe SC (05:14)
[2018-03-29] MEDS: Menthol/Lanolin/Calamine/Znox 113 GM Tube 1 APPLIC TOPICAL ×2 (05:15→22:14)
[2018-03-29] MEDS: Metoprolol Tartrate 100 MG Tablet PO ×2 (05:15→16:59)
[2018-03-29] MEDS: amLODIPine 10 MG Tablet PO (05:15)
[2018-03-29] MEDS: Glucerna Shake 120 ML LIQUID PO ×4 (05:19→22:01)
[2018-03-29] MEDS: Nystatin Powder 15gm Bottle 1 APPLIC TOPICAL ×2 (05:23→22:14)
[2018-03-29] MEDS: Divalproex Sodium 250 MG Tablet PO ×2 (08:31→16:58)
[2018-03-29] MEDS: Iron Polysaccharide Complex 150 MG CAPSULE PO (08:31)
[2018-03-29] MEDS: Aspirin 81 MG TAB.CHEW PO (08:31)
--- NOTE | 2018-03-29 10:44 | NURSING ---
THIS NURSE WAS WALKING BY PT ROOM AND SEEN PT TRANSFERRING PT FROM THE CHAIR TO THE BED. THIS NURSE STATED TO PT THAT SHE IS NOT ALLOWED TO TRANSFER PT AT ANY TIME UNLESS THERAPY APPROVES IT DUE TO PT MAY FALL AND IF HE NEEDS TO GET UP THAT TO USE THE CALL [facility] TO LET THE STAFF KNOW. PT STATED SHE DIDNT KNOW AND WAS SORRY. REPORTED TO KEANU BABB
--- NOTE | 2018-03-29 16:22 | CASEMGMT ---
Social Work Following up with resident in room in regards to thoughts of wanting to . This social studies department chair completed suicidal assessment. Resident denies any suicidal ideation and reporting to be tired with current medical status. Resident did reporting to have had a good day today and to have walked far with therapy. Emotional Support given. Will continue to follow as needed. Giuliana WALSH, TRAIN SYSTEM OPERATOR
[2018-03-29] MEDS: Donepezil HCl 5 MG Tablet PO (22:00)
[2018-03-29] MEDS: traZODone 50 MG Tablet PO (22:00)
[2018-03-30] MEDS: Senna/Docusate Sodium 1 Tablet 2 TABLET PO ×2 (06:46→17:56)
[2018-03-30] MEDS: amLODIPine 10 MG Tablet PO (06:46)
[2018-03-30] MEDS: Enoxaparin 30 MG/0.3 ML Syringe SC (06:46)
[2018-03-30] MEDS: Cefdinir 300 MG Capsule PO (06:46)
[2018-03-30] MEDS: Metoclopramide 10 MG Tablet PO ×4 (06:46→20:45)
[2018-03-30] MEDS: Glucerna Shake 120 ML LIQUID PO ×4 (06:47→20:45)
[2018-03-30] MEDS: Nystatin Powder 15gm Bottle 1 APPLIC TOPICAL ×2 (06:47→20:46)
[2018-03-30] MEDS: Furosemide 20 MG Tablet PO (06:47)
[2018-03-30] MEDS: Menthol/Lanolin/Calamine/Znox 113 GM Tube 1 APPLIC TOPICAL ×2 (06:48→20:49)
[2018-03-30 06:49] VITALS: BP 162/80; PULSE 76
[2018-03-30] MEDS: Metoprolol Tartrate 100 MG Tablet PO ×2 (06:49→17:55)
[2018-03-30] MEDS: hydrALAZINE 50 MG Tablet 100 MG PO ×3 (06:49→20:45)
[2018-03-30 07:04] VITALS: O2SAT 96
[2018-03-30] MEDS: Iron Polysaccharide Complex 150 MG CAPSULE PO (08:28)
[2018-03-30] MEDS: Divalproex Sodium 250 MG Tablet PO ×2 (08:28→17:54)
[2018-03-30] MEDS: Aspirin 81 MG TAB.CHEW PO (08:28)
--- NOTE | 2018-03-30 14:02 | NURSING ---
pt and daughter concerned that pt may have had mini stroke., Family states that they noticed facial drooping days ago but it may have just been the way the pt was laying in bed. Pt assessed by this nurse, pt asked to smile, no facial droop noted, hand grasps equal bilaterally, no slurred speech noted. Pt just states he's tired today and would like to be left alone. Space given and at bedside. Will continue to monitor.
[2018-03-30 14:52] VITALS: BP 141/54; PULSE 63
[2018-03-30 16:00] VITALS: BP 141/54; PULSE 63
[2018-03-30 17:55] VITALS: BP 173/65; PULSE 64
--- NOTE | 2018-03-30 17:55 | VDLE_ITS ---
Reason For Study: Swelling RIGHT LEFT GSV is normal. GSV is normal. CFV is compressible, spontaneous, phasic, CFV is compressible, spontaneous, phasic, competent and demonstrates normal competent, and demonstrates normal augmentation. augmentation. FV is compressible, spontaneous, phasic, FV is compressible, spontaneous, phasic, competent and demonstrates normal competent and demonstrates normal augmentation. augmentation. POP V is compressible, spontaneous, phasic, POP V is compressible, spontaneous, phasic, competent and demonstrates normal competent and demonstrates normal augmentation. augmentation. T/P Trunk is compressible. T/P Trunk is compressible. PTV is compressible. PTV is compressible. RT PerV is compressible. LT PerV is compressible. Procedure Exam performed portable in patient room. A preliminary report was called and/or faxed to TCU. Interpretation Summary Deep veins of the lower extremities are bilaterally patent and compressible segmentally. There is no evidence of deep vein thrombosis on either side. Valvular competence appears intact within the proximal deep venous systems bilaterally. The greater saphenous veins appear bilaterally patent and compressible segmentally. Ordering Physician: Rakesh Burgos Chi Referring Physician: Stan Huerta Performed By: Lucita Diaz, IRLANDA, RVT
[2018-03-30] MEDS: LORazepam 1 MG Tablet PO (19:19)
[2018-03-30 20:45] VITALS: BP 159/61; PULSE 65
[2018-03-30] MEDS: traZODone 50 MG Tablet PO (20:45)
[2018-03-30] MEDS: Donepezil HCl 5 MG Tablet PO (20:45)
[2018-03-31 04:59] VITALS: BP 151/71; PULSE 67
[2018-03-31] MEDS: Furosemide 20 MG Tablet PO (04:59)
[2018-03-31] MEDS: Metoclopramide 10 MG Tablet PO ×4 (04:59→21:52)
[2018-03-31] MEDS: hydrALAZINE 50 MG Tablet 100 MG PO ×3 (04:59→21:51)
[2018-03-31] MEDS: amLODIPine 10 MG Tablet PO (04:59)
[2018-03-31] MEDS: Metoprolol Tartrate 100 MG Tablet PO ×2 (04:59→17:26)
[2018-03-31] MEDS: Enoxaparin 30 MG/0.3 ML Syringe SC (05:00)
[2018-03-31] MEDS: Glucerna Shake 120 ML LIQUID PO ×2 (05:02→17:27)
[2018-03-31] MEDS: Nystatin Powder 15gm Bottle 1 APPLIC TOPICAL ×2 (05:05→21:52)
[2018-03-31] MEDS: Menthol/Lanolin/Calamine/Znox 113 GM Tube 1 APPLIC TOPICAL ×2 (05:05→21:52)
[2018-03-31] MEDS: Iron Polysaccharide Complex 150 MG CAPSULE PO (08:48)
[2018-03-31] MEDS: Aspirin 81 MG TAB.CHEW PO (08:48)
[2018-03-31] MEDS: Divalproex Sodium 250 MG Tablet PO ×2 (08:49→17:26)
[2018-03-31 13:20] VITALS: PULSE 87
--- NOTE | 2018-03-31 13:23 | NURSING ---
Pt refusing to have blood prssure obtained at this time. Pt pule 87. wanted this nurse to give Pt his blood pressure medication even tho this nurse unable to obtain BP at this time. Medication given whole in applesauce. Pt will be monitored closely
[2018-03-31 14:25] LABS: Bedside Glucose 171 mg/dL (70-110)
--- NOTE | 2018-03-31 14:26 | NURSING ---
Addendum entered by Gabriela Mooney 03/31/18 17:50: Pt's and Dr. Burgos updated. No injury post fall, neuro checks WNL, denies pain or discomfort. Original Note: This nurse heard Aid yelling from Pt room, This nurse entered room. Pt noted to be on the floor sitting upright in beside bed, when questioning what happened he stated he wanted to go to his chair. Pt denies any pain, Vitals signs obtained P-62 R-20 o2 94% RA BP 171/85 blood sugar 170. Pt transferred to chair with help from this nurse, and natty from therapy assisted to return Pt to chair. Patti COLUNGA, and Lucy saenz aware.
[2018-03-31 15:59] VITALS: BP 154/56; PULSE 58; RESP 22; TEMP 36.5; O2SAT 93
[2018-03-31] MEDS: LORazepam 1 MG Tablet PO (16:07)
--- NOTE | 2018-03-31 16:40 | CHAPLAIN ---
Type of Pastoral Visit ___ Initial Visit _x__ Follow-up Visit ___ On-call Visit ___ General Patient Visit ___ Spiritual Assessment _x__ Family Conference ___ Bereavement ___ Rapid Response ___ Code Blue ___ Other (describe below) Pastoral Care Referral From ___ Patient _x__ Family _x__ Nurse ___ Physician ___ Bridge Saw Operator ___ Director Sales And Marketing ___ Other (describe below) Sacrament/Intervention _x__ Active listening ___ Anointing ___ Quaker ___ Bereavement ___ Communion _x__ Deepa exploration ___ _x__ Life review _x__ Prayer ___ Reconciliation ___ Sacrament of Sick _x__ Supportive presence ___ Wedding ___ Other (describe below) Pastoral Comments family requested conversation with bed teacher and notified by RN; first visit was with spouse alone while patient was in PT; spouse is wanting to talk about future care of patient and was told that DR is recommending hospice; listened to thoughts of spouse as she processes the options; talked about what pt wants, what family input might be, pt clarity of thinking, and encouraged spouse to talk with DR about his recommendation; offered spiritual support and prayer with spouse second visit was later in the day with patient and spouse in the room of pt; pt tells this bed teacher that he is doing pretty good, that he is eating, and that he is doing his therapy; when asked about his future hopes, pt responds that it is up to God whether I live or ; pt declares that he has no worries about whatever comes; pt did not ask for anything and repeated that he had no needs at this time; prayer welcomed; spouse did not speak during this visit but allowed pt to do the talking
[2018-03-31 17:26] VITALS: BP 154/56; PULSE 60
[2018-03-31] MEDS: Senna/Docusate Sodium 1 Tablet 2 TABLET PO (17:26)
--- NOTE | 2018-03-31 17:31 | NURSING ---
Dr. Burgos reviewed venous doppler, NNO.
[2018-03-31 21:45] VITALS: PULSE 62; O2SAT 97
[2018-03-31 21:51] VITALS: BP 172/51; PULSE 57
[2018-03-31] MEDS: Donepezil HCl 5 MG Tablet PO (21:52)
[2018-03-31] MEDS: traZODone 50 MG Tablet PO (21:52)
--- NOTE | 2018-04-01 06:38 | NURSING ---
In to give pt morning pills. Pt c/o nausea. Thickened gilbert geetha given at this time, pt refusing to take pills this morning. Will continue to monitor.
[2018-04-01] MEDS: Menthol/Lanolin/Calamine/Znox 113 GM Tube 1 APPLIC TOPICAL ×2 (07:36→20:53)
[2018-04-01] MEDS: Enoxaparin 30 MG/0.3 ML Syringe SC (07:37)
[2018-04-01] MEDS: Furosemide 20 MG Tablet PO (07:37)
[2018-04-01] MEDS: Nystatin Powder 15gm Bottle 1 APPLIC TOPICAL ×2 (07:37→20:53)
[2018-04-01] MEDS: Metoclopramide 10 MG Tablet PO ×4 (07:37→20:53)
[2018-04-01] MEDS: amLODIPine 10 MG Tablet PO (07:37)
[2018-04-01 07:38] VITALS: BP 188/74; PULSE 64
[2018-04-01] MEDS: Metoprolol Tartrate 100 MG Tablet PO ×2 (07:38→17:07)
[2018-04-01] MEDS: hydrALAZINE 50 MG Tablet 100 MG PO ×3 (07:38→20:53)
[2018-04-01 14:01] VITALS: BP 187/82; PULSE 80
[2018-04-01 16:00] VITALS: BP 153/81; PULSE 56; RESP 22; TEMP 36.4; O2SAT 97
[2018-04-01 17:07] VITALS: BP 178/95; PULSE 72
[2018-04-01] MEDS: Glucerna Shake 120 ML LIQUID PO ×2 (17:07→20:52)
[2018-04-01] MEDS: Senna/Docusate Sodium 1 Tablet 2 TABLET PO (17:07)
[2018-04-01] MEDS: Divalproex Sodium 250 MG Tablet PO (17:08)
[2018-04-01 17:55] VITALS: BP 149/63; PULSE 57
--- NOTE | 2018-04-01 18:13 | NURSING ---
1700 pt found on floor next to bed and recliner chair, alarm sounding. pt was sitting in chair, left room shortly prior to fall. No injury noted. assisted to standing x3 assist. Vitals stable. pt assisted to dining room for supper, at side. Dr Aubrey muller, awaiting return call. RN Armature Repairer and stakeholder manager notified. Asked pt what he was doing & stated I don't know Pt remains alert to self only.
[2018-04-01 20:53] VITALS: BP 141/72; PULSE 64
[2018-04-01] MEDS: traZODone 50 MG Tablet PO (20:53)
[2018-04-01] MEDS: Donepezil HCl 5 MG Tablet PO (20:53)
[2018-04-02 05:07] VITALS: BP 180/88; PULSE 63
[2018-04-02] MEDS: Furosemide 20 MG Tablet PO ×2 (05:07→20:34)
[2018-04-02] MEDS: Enoxaparin 30 MG/0.3 ML Syringe SC (05:07)
[2018-04-02] MEDS: hydrALAZINE 50 MG Tablet 100 MG PO ×2 (05:07→20:35)
[2018-04-02] MEDS: Glucerna Shake 120 ML LIQUID PO ×2 (05:07→20:36)
[2018-04-02] MEDS: Metoclopramide 10 MG Tablet PO ×4 (05:07→20:34)
[2018-04-02] MEDS: Metoprolol Tartrate 100 MG Tablet PO (05:07)
[2018-04-02] MEDS: amLODIPine 10 MG Tablet PO (05:08)
[2018-04-02] MEDS: Nystatin Powder 15gm Bottle 1 APPLIC TOPICAL ×2 (05:12→20:38)
[2018-04-02] MEDS: Menthol/Lanolin/Calamine/Znox 113 GM Tube 1 APPLIC TOPICAL ×2 (05:12→20:38)
[2018-04-02] MEDS: Iron Polysaccharide Complex 150 MG CAPSULE PO (07:55)
[2018-04-02] MEDS: Aspirin 81 MG TAB.CHEW PO (07:55)
[2018-04-02] MEDS: Divalproex Sodium 250 MG Tablet PO ×2 (07:55→16:42)
[2018-04-02 08:25] VITALS: O2SAT 96
[2018-04-02] MEDS: LORazepam 1 MG Tablet PO ×2 (10:55→20:34)
[2018-04-02] MEDS: Acetaminophen 500 MG Tablet 1000 MG PO (10:56)
[2018-04-02 13:46] VITALS: BP 92/54; PULSE 52
[2018-04-02 14:47] VITALS: BP 91/47; PULSE 51; RESP 18; TEMP 36.7
[2018-04-02 16:46] VITALS: BP 94/47; PULSE 54
[2018-04-02] MEDS: traZODone 50 MG Tablet PO (20:34)
[2018-04-02] MEDS: Donepezil HCl 5 MG Tablet PO (20:34)
[2018-04-02 20:35] VITALS: BP 195/88; PULSE 65
[2018-04-03] VITALS (7 sets, daily range): BP systolic 129–191; BP diastolic 53–85; PULSE 55–67; RESP 18; TEMP 37.2; O2SAT 95–96
[2018-04-03] MEDS: Menthol/Lanolin/Calamine/Znox 113 GM Tube 1 APPLIC TOPICAL ×2 (04:48→21:29)
[2018-04-03] MEDS: hydrALAZINE 50 MG Tablet 100 MG PO ×2 (04:49→21:30)
[2018-04-03] MEDS: amLODIPine 10 MG Tablet PO (04:49)
[2018-04-03] MEDS: Metoprolol Tartrate 100 MG Tablet PO ×2 (04:49→16:59)
[2018-04-03] MEDS: Metoclopramide 10 MG Tablet PO ×4 (04:49→21:29)
[2018-04-03] MEDS: Glucerna Shake 120 ML LIQUID PO ×3 (04:49→21:29)
[2018-04-03] MEDS: Enoxaparin 30 MG/0.3 ML Syringe SC (04:50)
[2018-04-03] MEDS: Nystatin Powder 15gm Bottle 1 APPLIC TOPICAL ×2 (04:50→21:30)
[2018-04-03 05:51] LABS: Absolute Lymphocyte Count 1.93 X10^3/ul (0.83-4.51); Absolute Neutrophil Count 3.4 X10^3/uL (2.0-7.7); Basophil# 0.02 X10^3/uL; Basophil% 0.3 % (0-1); Eosinophil# 0.27 X10^3/uL; Hematocrit 28.2 % (40-54); Hemoglobin 9.1 g/dl (13.0-16.5); Lymphocyte # 1.93 X10^3/ul (4.0); Lymphocyte % 28.6 % (19-41); Mean Corp Hgb Conc 32.3 g/gl (32-36); Mean Corpuscular Hgb 29.5 pg (27.0-32.0); Mean Corpuscular Volume 91.6 fL (80-94); Monocyte# 1.15 X10^3/uL; Neutrophil # 3.38 X10^3/uL (2.7-7.7); Platelet Count 186 K/mm3 (150-450); RBC Distribution Width CV 15.5 % (11.6-14.6); Red Blood Count 3.08 M/mm3 (4.6-6.2); White Blood Count 6.8 K/mm3 (4.4-11.0)
[2018-04-03 05:59] LABS: Anion Gap 8 (5-15); BUN 27 mg/dL (7-18); Calcium,Total 8.5 mg/dL (8.5-10.1); Chloride 113 mmol/L (98-107); Creatinine, Serum 2.46 mg/dL (0.70-1.30); EST Glomerular Filtration Rate 27 mL/min (>60); Est Glom Filt Rate - Afr Amer 33 mL/min (>60); Estimated Creatinine Clearance 27.21 ml/min; Glucose 100 mg/dL (74-106); Potassium 3.6 mmol/L (3.5-5.1); Sodium Level 148 mmol/L (136-145)
[2018-04-03 06:10] LABS: POSITIVE COUNT NO; POSITIVE DIFFERENTIAL NO; POSITIVE MORPHOLOGY NO
[2018-04-03] MEDS: Iron Polysaccharide Complex 150 MG CAPSULE PO (08:57)
[2018-04-03] MEDS: Divalproex Sodium 250 MG Tablet PO ×2 (08:57→16:38)
[2018-04-03] MEDS: Aspirin 81 MG TAB.CHEW PO (08:57)
--- NOTE | 2018-04-03 13:59 | CASEMGMT ---
Social Work Pt and met with [facility] on Tuesday04/01/18. SW met with pt today and states pt does want to sign up for hospice services. SW inquired if felt she could take pt home and at this time feels care needs are greater than she can provide and pt will need long term care administrator placement in a facility with hospice services. [facility] facilities [facility], [facility]. [facility], 3. [facility]. Pt has applied for Medicaid on behalf of pt. Phone call received from [facility] who states pt and signed papers on Tuesday. Phone call to Leonila at the [facility]. They do have beds available. Referral faxed. Leonila to check on Medicaid eligibility prior to making a determination if they can accept pt. JOANN will follow. JILLIAN Hawley
--- NOTE | 2018-04-03 14:04 | CASEMGMT ---
Insurance Clinical update faxed. Will await continued stay determination. JILLIAN Hawley
--- NOTE | 2018-04-03 14:25 | NURSING ---
PER , HOLD THE APRESOLINE AT 1400. KEANU MORENO AWARE
[2018-04-03] MEDS: Donepezil HCl 5 MG Tablet PO (21:29)
[2018-04-03] MEDS: traZODone 50 MG Tablet PO (21:29)
[2018-04-04] VITALS (7 sets, daily range): BP systolic 152–188; BP diastolic 71–88; PULSE 60–70; RESP 18; TEMP 37.1; O2SAT 93–97
[2018-04-04] MEDS: Glucerna Shake 120 ML LIQUID PO ×2 (04:59→11:46)
[2018-04-04] MEDS: Furosemide 20 MG Tablet PO (04:59)
[2018-04-04] MEDS: Metoclopramide 10 MG Tablet PO ×4 (04:59→21:02)
[2018-04-04] MEDS: amLODIPine 10 MG Tablet PO (05:00)
[2018-04-04] MEDS: Enoxaparin 30 MG/0.3 ML Syringe SC (05:00)
[2018-04-04] MEDS: Metoprolol Tartrate 100 MG Tablet PO ×2 (05:00→17:20)
[2018-04-04] MEDS: hydrALAZINE 50 MG Tablet 100 MG PO ×3 (05:00→21:02)
[2018-04-04] MEDS: Menthol/Lanolin/Calamine/Znox 113 GM Tube 1 APPLIC TOPICAL ×2 (05:01→21:02)
[2018-04-04] MEDS: Nystatin Powder 15gm Bottle 1 APPLIC TOPICAL ×2 (05:02→21:02)
[2018-04-04] MEDS: LORazepam 1 MG Tablet PO ×2 (10:00→15:53)
[2018-04-04] MEDS: Iron Polysaccharide Complex 150 MG CAPSULE PO (10:01)
[2018-04-04] MEDS: Aspirin 81 MG TAB.CHEW PO (10:01)
[2018-04-04] MEDS: Divalproex Sodium 250 MG Tablet PO ×2 (10:01→17:20)
--- NOTE | 2018-04-04 10:09 | NURSING ---
pt increasingly anxious this AM. Pressure alarm sounding alerting staff multiple times. Pt attempting to climb OOB unassisted. Staff assisted with toileting needs, given foods, fluids, and repositioned without relief. PRN Ativan given at this time.
--- NOTE | 2018-04-04 13:31 | CASEMGMT ---
Social Work Call from Zenia at the [facility] and they cannot accept pt due to pending Medicaid status. Phone call to [facility]. They do have beds available. Referral faxed and will await determination if they can accept pt. Phone call to Kevin at [facility]. Update provided on pt d/c status. Kevin states preadmission papers were signed and pt will sign admission papers with hospice after transferred to [facility]. Pt and notified. JILLIAN Hawley
--- NOTE | 2018-04-04 13:35 | CASEMGMT ---
Insurance Pt approved through 04/07 for d/c planning. Continued stay beyond 04/07 not approved. JILLIAN Hawley
--- NOTE | 2018-04-04 15:23 | CASEMGMT ---
Social Work Phone call from [facility] and they are able to accept pt. JOANN met with pt and dgt Marisabel. stating now that she would like to take pt home. SW talked to at length about feasibility of this as pt requires much care and has had falls in the past. Pt concerned about [place] and [place] payment. SW explained resource assessment that [facility] completes and Medicaid coverage. JOANN spoke with therapy who will complete family training with pt tomorrow with completing care to assess her ability to care for pt. Pt is aware of this and agreeable. After training pt and will make final decision on d/c plan. D/C is set for 04/06/18. Plan: home vs. [facility] JILLIAN Hawley
[2018-04-04] MEDS: traZODone 50 MG Tablet PO (21:02)
[2018-04-04] MEDS: Donepezil HCl 5 MG Tablet PO (21:02)
[2018-04-05] MEDS: Menthol/Lanolin/Calamine/Znox 113 GM Tube 1 APPLIC TOPICAL ×2 (06:07→21:08)
[2018-04-05] MEDS: Nystatin Powder 15gm Bottle 1 APPLIC TOPICAL ×2 (06:08→21:08)
[2018-04-05] MEDS: Furosemide 20 MG Tablet PO (06:08)
[2018-04-05 06:09] VITALS: BP 190/67; PULSE 56
[2018-04-05] MEDS: amLODIPine 10 MG Tablet PO (06:09)
[2018-04-05] MEDS: Metoprolol Tartrate 100 MG Tablet PO ×2 (06:09→17:23)
[2018-04-05 06:10] VITALS: BP 190/67; PULSE 56
[2018-04-05] MEDS: hydrALAZINE 50 MG Tablet 100 MG PO ×3 (06:10→21:04)
[2018-04-05] MEDS: Glucerna Shake 120 ML LIQUID PO ×2 (06:10→17:23)
[2018-04-05] MEDS: Enoxaparin 30 MG/0.3 ML Syringe SC (06:52)
[2018-04-05] MEDS: Divalproex Sodium 250 MG Tablet PO ×2 (08:22→17:24)
[2018-04-05] MEDS: Metoclopramide 10 MG Tablet PO ×4 (08:23→21:04)
[2018-04-05] MEDS: Aspirin 81 MG TAB.CHEW PO (08:23)
[2018-04-05] MEDS: Iron Polysaccharide Complex 150 MG CAPSULE PO (10:51)
--- NOTE | 2018-04-05 12:33 | CASEMGMT ---
Social Work Pt completed family training with therapy and . PT reports pt did well with assistance of . Was able to transfer from bed, chair and simulated car transfer. met with pt and and they have decided that pt will return home with the assistance of who will provide 24 hour care. Hospice services will begin when pt returns home. Pt states pt has walker and wheelchair. plans to picker side rails for the bed. No further DME required at this time. Per , dgt Marisabel will assist with transfer home. Phone call to [facility] and informed that pt will be d/c home tomorrow. Hospice will call and set up appt to start services once pt returns home. Phone call to Kathryn at [facility] and informed that pt will be d/c home and not coming to [facility]. Phone call to Shona at [facility] and informed her via of pt plan to d/c home. Nursing and therapy aware of pt plan to d/c home on 04/06/18. Plan: Home with spouse and hospice services. JILLIAN Hawley
--- NOTE | 2018-04-05 13:01 | CASEMGMT ---
Insurance Received call from Leeanna at insurance. Informed her that pt will d/c home on 04/06/18 JILLIAN Hawley
[2018-04-05 14:50] VITALS: PULSE 78
[2018-04-05 16:00] VITALS: BP 145/68; PULSE 57; RESP 18; TEMP 36.4; O2SAT 93
--- NOTE | 2018-04-05 17:13 | DCINST_ITS ---
- Discharge Diagnoses Current Active Problems: Current Active and Chronic Problems (Last Reviewed 03/06/18 @ 13:42 by Tello Iniguez DO) Acute on chronic kidney failure (Acute) Gout (Acute) Alzheimer's disease (Chronic) Diabetes mellitus (Chronic) You will use the following diet at home:: No restrictions, Regular Your food should be the consistency of: Regular Your liquids should be the consistency of: Regular/Thin Discharge Activity: Return to Normal Activity, May Shower, Use Walker May resume sexual activity in: No Restrictions Weight Bearing Status: Weight bearing as tolerated Call your doctor if you observe: Fever of 101 or Higher, Inability to urinate, Inability to have a bowel movement, Shortness of breath, Chest pain, Uncontrolled pain Allergies/Adverse Reactions: Allergies rosuvastatin calcium [From Crestor] Allergy (Verified 03/06/18 08:47) Hives atorvastatin calcium [From Lipitor] Adverse Reaction (Verified 03/06/18 08:47) Pain in joints morphine Adverse Reaction (Verified 03/06/18 08:47) Other LOCALIZED IRRITATION OF VEIN pioglitazone HCl [From Actos] Adverse Reaction (Verified 03/06/18 08:47) Pain in joints Medications to take at Discharge Nitroglycerin [Nitrostat] 0.4 mg SUBLINGUAL Q5M PRN 07/10/13 Amlodipine [Norvasc] 5 mg PO DAILY 01/02/18 Simvastatin [Zocor] 40 mg PO QHS 01/02/18 Polyethylene Glycol 3350 [Miralax] 17 gm PO DAILY 03/09/18 Acetaminophen [Tylenol] 1,000 mg PO Q8H PRN PRN tablet 04/05/18 Aspirin [Aspirin, Baby] 81 mg PO DAILY@0800 tab.chew 04/05/18 Divalproex Sodium [Depakote] 250 mg PO BIDCM #60 tab 04/05/18 Donepezil HCl [Aricept] 5 mg PO QHS #30 tab 04/05/18 Furosemide [Lasix] 20 mg PO DAILY #30 tab 04/05/18 Ipratropium/Albuterol Sulfate [Duoneb] 3 ml INHALATION Q3H.RT PRN #120 ampul.neb 04/05/18 Iron Polysaccharide Complex [Ferrex 150] 150 mg PO DAILYCM #30 cap 04/05/18 Lorazepam [Ativan] 1 mg PO Q4H PRN PRN #30 tab 04/05/18 Menthol/Lanolin/Calamine/Znox [Calmoseptine Ointment] 1 applic TOPICAL 0600, 2200 tube 04/05/18 Metoclopramide [Reglan] 10 mg PO ACHS #120 tab 04/05/18 Metoprolol Tartrate [Lopressor (beta guillaume)] 100 mg PO BID #60 tab 04/05/18 Nystatin Powder [Mycostatin Powder] 1 applic TOPICAL 0600,2200 bottle 04/05/18 Simvastatin [Zocor] 40 mg PO QHS tablet 04/05/18 hydrALAZINE [Apresoline] 100 mg PO TID #90 tab 04/05/18 traZODone [Desyrel] 50 mg PO QHS #30 tab 04/05/18 The following prescriptions were given: Ipratropium/Albuterol Sulfate [Duoneb] 3 ml INHALATION Q3H.RT PRN #120 ampul.neb PRN Reason: sob/wheezing Lorazepam [Ativan] 1 mg PO Q4H PRN PRN #30 tab PRN Reason: ANXIETY Donepezil HCl [Aricept] 5 mg PO QHS #30 tab Furosemide [Lasix] 20 mg PO DAILY #30 tab Iron Polysaccharide Complex [Ferrex 150] 150 mg PO DAILYCM #30 cap Metoclopramide [Reglan] 10 mg PO ACHS #120 tab traZODone [Desyrel] 50 mg PO QHS #30 tab Divalproex Sodium [Depakote] 250 mg PO BIDCM #60 tab Metoprolol Tartrate [Lopressor (beta guillaume)] 100 mg PO BID #60 tab hydrALAZINE [Apresoline] 100 mg PO TID #90 tab Primary Care Physician: Stan Huerta MD [Primary Care Provider] - Please follow up with your Primary Care Physician in: 1 week. Test Results: Test results from this visit will be discussed in further detail at your follow- up appointment, if applicable. Proposed Discharge Date: 04/06/18
--- NOTE | 2018-04-05 17:15 | DS.PCM_ITS ---
Discharge Date and Diagnosis - Problem List Patient Problems: Active and Suspected Problems (Last Reviewed 03/06/18 @ 13:42 by Tello Iniguez DO) Acute on chronic kidney failure (Acute) Gout (Acute) Date of Admission: 03/09/18 Date of Discharge: 04/06/18 - Primary Discharge Diagnosis Active and Suspected Problems (Last Reviewed 03/06/18 @ 13:42 by Tello Iniguez DO) Acute on chronic kidney failure (Acute) Gout (Acute) - Secondary Discharge Diagnosis Chronic Problems (Last Reviewed 03/06/18 @ 13:42 by Tello Iniguez DO) Debility (Chronic) Alzheimer's disease (Chronic) Diabetes mellitus (Chronic) History of coronary artery bypass graft (Chronic) Diabetes mellitus, type 2 (Chronic) Diastolic dysfunction (Chronic) Stage I Depression (Chronic) Dementia (Chronic) Hyperlipidemia (Chronic) CAD (coronary artery disease) (Chronic) Hypertension (Chronic) Hospital Course and Treatment Imaging Results: 03/29/18 16:00 Diet: Regular Diet Food consistency:: Mechanical Soft/Ground Liquid Consistency:: Honey Thick Dietary Modifications:: Mechanical Soft Diet Honey Thick Liquids Is pt able to select menu?: Yes Diet Comments: low sodium, meds whole with purees, 1:1 supervision Clinical Impression(s) from Imaging Studies Chest X-Ray 03/19/18 12:50 IMPRESSION: Findings suggest probable right lower lobe atelectasis and effusion and/or infiltrate. Recommend noncontrast chest CT for follow-up. Electronically Signed: Alley Fernandez MD at 15:54 EDT Tel , Service support , KUB X-Ray 03/22/18 09:55 IMPRESSION: Unremarkable bowel gas pattern. Stable pleural parenchymal changes at the left lung base. Electronically Signed: Hood Almonte MD at 12:44 EDT Tel [phone], Service support , Operations: None Procedures: None Summary of Care Provided: The patient is a 77 year old Male with below past medical history hospitalized for acute on chronic kidney failure secondary to prerenal azotemia, rule out vasculitis, complicated by underlying Alzheimer's Disease with acute delirium, admitted to TCU with debility, here for rehabilitation, strengthening, prior to discharge home with spouse. Discharge home with spouse, and hospice services. Discharge Diet: No Restrictions Discharge Activity: Return to Normal Activity, May Shower, Use Walker May resume sexual activity in: No Restrictions Weight Bearing Status: Weight bearing as tolerated Call your doctor if you observe: Fever of 101 or Higher, Inability to urinate, Inability to have a bowel movement, Shortness of breath, Chest pain, Uncontrolled pain Home Medications: Medications to take at Discharge Nitroglycerin [Nitrostat] 0.4 mg SUBLINGUAL Q5M PRN 07/10/13 Amlodipine [Norvasc] 5 mg PO DAILY 01/02/18 Simvastatin [Zocor] 40 mg PO QHS 01/02/18 Polyethylene Glycol 3350 [Miralax] 17 gm PO DAILY 03/09/18 Acetaminophen [Tylenol] 1,000 mg PO Q8H PRN PRN tablet 04/05/18 Aspirin [Aspirin, Baby] 81 mg PO DAILY@0800 tab.chew 04/05/18 Divalproex Sodium [Depakote] 250 mg PO BIDCM #60 tab 04/05/18 Donepezil HCl [Aricept] 5 mg PO QHS #30 tab 04/05/18 Furosemide [Lasix] 20 mg PO DAILY #30 tab 04/05/18 Ipratropium/Albuterol Sulfate [Duoneb] 3 ml INHALATION Q3H.RT PRN #120 ampul.neb 04/05/18 Iron Polysaccharide Complex [Ferrex 150] 150 mg PO DAILYCM #30 cap 04/05/18 Lorazepam [Ativan] 1 mg PO Q4H PRN PRN #30 tab 04/05/18 Menthol/Lanolin/Calamine/Znox [Calmoseptine Ointment] 1 applic TOPICAL 0600, 2200 tube 04/05/18 Metoclopramide [Reglan] 10 mg PO ACHS #120 tab 04/05/18 Metoprolol Tartrate [Lopressor (beta guillaume)] 100 mg PO BID #60 tab 04/05/18 Nystatin Powder [Mycostatin Powder] 1 applic TOPICAL 0600,2200 bottle 04/05/18 Simvastatin [Zocor] 40 mg PO QHS tablet 04/05/18 hydrALAZINE [Apresoline] 100 mg PO TID #90 tab 04/05/18 traZODone [Desyrel] 50 mg PO QHS #30 tab 04/05/18 Following Prescrptions Were Given to Patient: Ipratropium/Albuterol Sulfate [Duoneb] 3 ml INHALATION Q3H.RT PRN #120 ampul.neb PRN Reason: sob/wheezing Lorazepam [Ativan] 1 mg PO Q4H PRN PRN #30 tab PRN Reason: ANXIETY Donepezil HCl [Aricept] 5 mg PO QHS #30 tab Furosemide [Lasix] 20 mg PO DAILY #30 tab Iron Polysaccharide Complex [Ferrex 150] 150 mg PO DAILYCM #30 cap Metoclopramide [Reglan] 10 mg PO ACHS #120 tab traZODone [Desyrel] 50 mg PO QHS #30 tab Divalproex Sodium [Depakote] 250 mg PO BIDCM #60 tab Metoprolol Tartrate [Lopressor (beta guillaume)] 100 mg PO BID #60 tab hydrALAZINE [Apresoline] 100 mg PO TID #90 tab Primary Care Physician: Stan Huerta MD [Primary Care Provider] - Please follow up with your Primary Care Physician in: 1 week. Disposition: Home with Hospice Minutes spent on discharge:: 35 Patient Condition:: Poor Medical Necessity - Tobacco Use Smoking Status: Never smoker Tobacco Use: Non-smoker Meaningful Use Info Meaningful Use Diagnoses (Choose all that apply): None applicable
[2018-04-05 17:23] VITALS: BP 145/68; PULSE 57
[2018-04-05] MEDS: Senna/Docusate Sodium 1 Tablet 2 TABLET PO (17:23)
[2018-04-05 21:04] VITALS: BP 168/42; PULSE 54
[2018-04-05] MEDS: Donepezil HCl 5 MG Tablet PO (21:04)
[2018-04-05] MEDS: traZODone 50 MG Tablet PO (21:04)
[2018-04-06 05:37] VITALS: BP 184/58; PULSE 53
[2018-04-06] MEDS: Metoprolol Tartrate 100 MG Tablet PO (05:37)
[2018-04-06] MEDS: hydrALAZINE 50 MG Tablet 100 MG PO (05:37)
[2018-04-06] MEDS: Furosemide 20 MG Tablet PO (05:37)
[2018-04-06] MEDS: Enoxaparin 30 MG/0.3 ML Syringe SC (05:38)
[2018-04-06] MEDS: amLODIPine 10 MG Tablet PO (05:38)
[2018-04-06] MEDS: Nystatin Powder 15gm Bottle 1 APPLIC TOPICAL (05:43)
[2018-04-06] MEDS: Menthol/Lanolin/Calamine/Znox 113 GM Tube 1 APPLIC TOPICAL (05:43)
[2018-04-06 07:00] VITALS: O2SAT 98
[2018-04-06] MEDS: Aspirin 81 MG TAB.CHEW PO (08:09)
[2018-04-06] MEDS: Metoclopramide 10 MG Tablet PO ×2 (08:09→11:53)
[2018-04-06] MEDS: Divalproex Sodium 250 MG Tablet PO (08:09)
[2018-04-06] MEDS: Iron Polysaccharide Complex 150 MG CAPSULE PO (08:09)
--- NOTE | 2018-04-06 09:38 | MDS.RN ---
Information for the mds was obtained from review of the clinical record, interview of resident, staff, and direct observation of resident's care.
[2018-04-06 12:58] VITALS: BP 155/50; PULSE 52; RESP 18; TEMP 36.6; O2SAT 96
== END 2018-04-06 13:00 | disposition hospice, home (50) | DRG 948 ==
PROVIDERS: Internal Medicine Nephrology; Admitting Provider Family Medicine Geriatric Medicine; Family Provider Family Medicine; PCP Family Medicine; Visit Provider Family Medicine Geriatric Medicine
DX: R53.81 Other malaise (principal); N17.9 Acute kidney failure, unspecified; G30.9 Alzheimer's disease, unspecified; F02.80 Dementia in other diseases classified elsewhere, unspecified severity, without behavioral disturbance, psychotic disturbance, mood disturbance, and anxiety; E55.9 Vitamin D deficiency, unspecified; E78.5 Hyperlipidemia, unspecified; M10.9 Gout, unspecified; I25.10 Atherosclerotic heart disease of native coronary artery without angina pectoris; E11.22 Type 2 diabetes mellitus with diabetic chronic kidney disease; I12.9 Hypertensive chronic kidney disease with stage 1 through stage 4 chronic kidney disease, or unspecified chronic kidney disease; N18.9 Chronic kidney disease, unspecified; Z95.1 Presence of aortocoronary bypass graft; F41.9 Anxiety disorder, unspecified; F32.9 Major depressive disorder, single episode, unspecified
CPT/HCPCS: 36415; 71045; 71046; 74018; 80048; 81001; 82274; 82947; 82962; 84156; 85025; 87086; 92507; 92526; 92610; 93005; 93970; 94640; 97110; 97116; 97162; 97165; 97530; 97535; 97802; J1610

== ENCOUNTER → 2018-03-21 08:22 | Outpatient (CLI) | payer MEDICARE, SELFPAY | PROVIDERS: Family Provider Family Medicine; PCP Family Medicine; Visit Provider Family Medicine Geriatric Medicine | DX: R06.02 Shortness of breath (principal) | CPT/HCPCS: 71250 ==